=== PATIENT | male | born 1935 | race Two or more races ===

== ENCOUNTER 2022-10-17 10:02 | Inpatient (IN) | payer MEDICARE, BC, OTHER ==
[~2022-10-17] VITALS: Ht 167.6 cm; Wt 74.4 kg
[2022-10-17] MEDS ORDERED: GLUCOSE 4GM CHEW TABLET PO PRN (15:55)
[2022-10-17] MEDS ORDERED: GLUCAGON INJ 1MG VIAL SC PRN (15:55)
[2022-10-17] MEDS ORDERED: ACETAMINOPHEN TAB 650MG DOSE (2X325MG) PO PRN (15:55)
[2022-10-17] MEDS ORDERED: DEXTROSE 50% 50ML SYRINGE IV PRN (15:55)
[2022-10-17 17:25] VITALS: BP 174/89; TEMP 98.6; O2SAT 96
[2022-10-17] MEDS ORDERED: oxyCODONE 5MG TAB PO ONE (18:25)
[2022-10-17] MEDS ORDERED: ATOR40TA75 PO (18:27)
[2022-10-17] MEDS ORDERED: ASPI81TA26 PO (18:27)
[2022-10-17] MEDS ORDERED: ENOX40IN3 SC (18:27)
[2022-10-17] MEDS ORDERED: HYDR50TA70 PO (18:27)
[2022-10-17] MEDS ORDERED: LIDO5DIS41 TOP (18:27)
[2022-10-17] MEDS ORDERED: INSU100V6 SQ (18:27)
[2022-10-17] MEDS ORDERED: [UNRECOGNIZED DRUG - CODE] PO (18:27)
[2022-10-17] MEDS ORDERED: TRAM50TA2 PO (18:27)
[2022-10-17] MEDS ORDERED: INSU100V13 SQ (18:27)
[2022-10-17] MEDS ORDERED: LISI5TAB11 PO (18:27)
[2022-10-17] MEDS ORDERED: LANTINJ4 SC (18:27)
[2022-10-17] MEDS ORDERED: PANT40TA29 PO (18:27)
[2022-10-17] MEDS ORDERED: ONDA4SOL IV (18:27)
[2022-10-17] MEDS ORDERED: INSUHUMDS SC ×2 (18:32)
[2022-10-17] MEDS ORDERED: HOME MED LIST COMPLETE! XX SCH (18:35)
[2022-10-17] MEDS ORDERED: PILL CUTTER 1 EACH XX PRN (18:50)
[2022-10-17] MEDS: INSULIN LISPRO (NovoLOG) PER UNIT SC SCH ×2 (19:20→21:00)
[2022-10-17] MEDS: REMEDY PHYTOPLEX Z-GUARD PASTE 113GM TUBE (FROM STOREROOM PRODUCT) TOP SCH (21:00)
[2022-10-17 21:40] VITALS: BP 165/78; TEMP 98.3; O2SAT 97
[2022-10-17] MEDS: LEVEMIR (INSULIN DETEMIR) 1 UNITS/0.01ML SC SCH (21:49)
[2022-10-17] MEDS: LIDOCAINE 5% (LIDODERM) PATCH TD SCH (21:50)
[2022-10-17] MEDS: GABAPENTIN 100 MG CAP PO SCH (21:50)
[2022-10-17] MEDS: ACETAMINOPHEN 500 MG TAB PO SCH (21:50)
[2022-10-17] MEDS: SENNA 8.6 MG TAB (SENOKOT) PO SCH (21:50)
[2022-10-17] MEDS: ATORVASTATIN 20 MG TAB PO SCH (21:50)
[2022-10-17] MEDS: **hydrALAZINE** 10 MG TAB PO SCH (21:51)
[2022-10-17] MEDS: DOCUSATE SODIUM 100MG CAPSULE PO SCH (21:51)
[2022-10-18 05:35] VITALS: BP 165/78; O2SAT 94
[2022-10-18 05:43] VITALS: TEMP 98.1
[2022-10-18] MEDS: **hydrALAZINE** 10 MG TAB PO SCH ×3 (05:47→22:00)
[2022-10-18] MEDS ORDERED: amLODIPine 5 MG TAB PO SCH (07:00)
[2022-10-18 07:21] VITALS: BP 151/67
[2022-10-18] MEDS ORDERED: traMADol 50 MG TAB PO PRN (07:50)
[2022-10-18] MEDS: PANTOPRAZOLE 40MG TAB (PROTONIX) PO SCH (08:41)
[2022-10-18] MEDS: ACETAMINOPHEN 500 MG TAB PO SCH ×3 (08:41→21:06)
[2022-10-18] MEDS: GABAPENTIN 100 MG CAP PO SCH ×2 (08:41→21:07)
[2022-10-18] MEDS: ASPIRIN 81MG ENTERIC TABLET PO SCH (08:41)
[2022-10-18] MEDS: REMEDY PHYTOPLEX Z-GUARD PASTE 113GM TUBE (FROM STOREROOM PRODUCT) TOP SCH ×3 (08:41→21:00)
[2022-10-18] MEDS: DOCUSATE SODIUM 100MG CAPSULE PO SCH ×2 (08:41→21:07)
[2022-10-18] MEDS: INSULIN LISPRO (NovoLOG) PER UNIT SC SCH ×4 (08:41→21:00)
[2022-10-18] MEDS: lisinopriL 5 MG TAB PO SCH (08:43)
[2022-10-18] MEDS ORDERED: THIAMINE 100 MG TAB PO SCH (09:00)
[2022-10-18] MEDS ORDERED: ESCITALOPRAM OXALATE 5MG TABLET (LEXAPRO) PO SCH (09:00)
[2022-10-18 09:01] LABS: BASO # 0.1 10^3/uL (0.0-0.2); BASO % 1.3 % (0.0-1.0); EOS # 0.3 10^3/uL (0.0-0.5); EOS % 5.2 % (0.0-3.0); HEMATOCRIT 33.7 % (42.0-52.0); HEMOGLOBIN 11.1 g/dl (13.5-17.5); LYMPH # 1.2 10^3/uL (1.5-5.0); MEAN CORPUSCULAR HEMOGLOBIN 29.1 pg (27.0-33.0); MEAN CORPUSCULAR HGB CONC 32.9 g/dl (32.0-36.5); MEAN CORPUSCULAR VOLUME 88.2 fl (80.0-96.0); MONO # 0.5 10^3/uL (0.0-0.8); MONO % 9.8 % (2.0-8.0); NEUTROPHILS # 3.2 10^3/uL (1.5-8.5); NEUTROPHILS % 61.5 % (36.0-66.0); PLATELET COUNT, AUTOMATED 266 10^3/uL (150-450); RED BLOOD COUNT 3.82 10^6/uL (4.30-6.10); WHITE BLOOD COUNT 5.2 10^3/uL (4.0-10.0)
[2022-10-18 09:21] LABS: ALBUMIN 3.3 G/DL (3.2-5.2); ALKALINE PHOSPHATASE 58 U/L (46-116); ALT/SGPT 14 U/L (7.0-40); AST/SGOT 23 U/L (<34); BILIRUBIN,TOTAL 0.6 MG/DL (0.3-1.2); BLOOD UREA NITROGEN 24 MG/DL (9-23); CALCIUM LEVEL 9.5 MG/DL (8.3-10.6); CARBON DIOXIDE LEVEL 27 MMOL/L (20-31); CHLORIDE LEVEL 103 MMOL/L (98-107); CREATININE FOR GFR 0.66 MG/DL (0.70-1.30); GLOMERULAR FILTRATION RATE > 60.0 (>35); GLUCOSE, FASTING 111 MG/DL (74-106); POTASSIUM SERUM 3.7 MMOL/L (3.5-5.1); SODIUM LEVEL 137 MMOL/L (136-145); TOTAL PROTEIN 5.8 G/DL (5.7-8.2)
[2022-10-18] MEDS ORDERED: BENFOTIAMINE PO SCH (10:30)
[2022-10-18] MEDS: oxyCODONE 5MG TAB PO PRN (15:20)
[2022-10-18 20:46] VITALS: BP 131/61; TEMP 98.3; O2SAT 95
[2022-10-18] MEDS: LEVEMIR (INSULIN DETEMIR) 1 UNITS/0.01ML SC SCH (21:05)
[2022-10-18] MEDS: LIDOCAINE 5% (LIDODERM) PATCH TD SCH (21:05)
[2022-10-18] MEDS: ATORVASTATIN 20 MG TAB PO SCH (21:06)
[2022-10-18] MEDS: HEPARIN SOD (PORCINE) 5000UNITS/ML 1ML VIAL/SYRINGE SQ SCH (21:06)
[2022-10-18] MEDS: SENNA 8.6 MG TAB (SENOKOT) PO SCH (21:06)
[2022-10-18 22:39] VITALS: BP 125/60
[2022-10-19 05:12] VITALS: BP 152/72; TEMP 98.2; O2SAT 96
[2022-10-19] MEDS: **hydrALAZINE** 10 MG TAB PO SCH ×3 (05:17→21:07)
[2022-10-19 06:54] LABS: BASO % 0.8 % (0.0-1.0); EOS # 0.3 10^3/uL (0.0-0.5); EOS % 5.1 % (0.0-3.0); HEMATOCRIT 33.5 % (42.0-52.0); LYMPH # 1.3 10^3/uL (1.5-5.0); LYMPH % 24.6 % (24.0-44.0); MEAN CORPUSCULAR HEMOGLOBIN 29.3 pg (27.0-33.0); MEAN CORPUSCULAR HGB CONC 32.8 g/dl (32.0-36.5); MEAN CORPUSCULAR VOLUME 89.3 fl (80.0-96.0); MONO # 0.5 10^3/uL (0.0-0.8); NEUTROPHILS # 3.2 10^3/uL (1.5-8.5); NEUTROPHILS % 60.1 % (36.0-66.0); PLATELET COUNT, AUTOMATED 241 10^3/uL (150-450); RED BLOOD COUNT 3.75 10^6/uL (4.30-6.10); WHITE BLOOD COUNT 5.3 10^3/uL (4.0-10.0)
[2022-10-19 07:23] LABS: BLOOD UREA NITROGEN 20 MG/DL (9-23); CALCIUM LEVEL 8.4 MG/DL (8.3-10.6); CARBON DIOXIDE LEVEL 28 MMOL/L (20-31); CHLORIDE LEVEL 104 MMOL/L (98-107); CREATININE FOR GFR 0.67 MG/DL (0.70-1.30); GLOMERULAR FILTRATION RATE > 60.0 (>35); GLUCOSE, FASTING 162 MG/DL (74-106); POTASSIUM SERUM 3.8 MMOL/L (3.5-5.1); SODIUM LEVEL 138 MMOL/L (136-145)
[2022-10-19] MEDS: INSULIN LISPRO (NovoLOG) PER UNIT SC SCH ×4 (08:09→20:16)
[2022-10-19] MEDS: HEPARIN SOD (PORCINE) 5000UNITS/ML 1ML VIAL/SYRINGE SQ SCH ×2 (08:10→20:20)
[2022-10-19] MEDS: ACETAMINOPHEN 500 MG TAB PO SCH ×3 (08:10→20:19)
[2022-10-19] MEDS: DOCUSATE SODIUM 100MG CAPSULE PO SCH ×2 (08:10→20:20)
[2022-10-19] MEDS: ASPIRIN 81MG ENTERIC TABLET PO SCH (08:10)
[2022-10-19] MEDS: ESCITALOPRAM OXALATE 5MG TABLET (LEXAPRO) PO SCH (08:11)
[2022-10-19] MEDS: REMEDY PHYTOPLEX Z-GUARD PASTE 113GM TUBE (FROM STOREROOM PRODUCT) TOP SCH ×3 (08:11→20:21)
[2022-10-19] MEDS: PANTOPRAZOLE 40MG TAB (PROTONIX) PO SCH (08:11)
[2022-10-19] MEDS: lisinopriL 5 MG TAB PO SCH (08:11)
[2022-10-19 14:05] VITALS: BP 132/66; TEMP 97.9; O2SAT 96
[2022-10-19] MEDS: ALPHA LIPOIC ACID 100 MG PO SCH (14:55)
[2022-10-19] MEDS ORDERED: ONDANSETRON 4MG ORAL DISINTEGRATING TAB PO STA (17:56)
[2022-10-19 19:13] VITALS: TEMP 97; O2SAT 97
[2022-10-19 19:28] VITALS: BP 158/72
[2022-10-19] MEDS: LEVEMIR (INSULIN DETEMIR) 1 UNITS/0.01ML SC SCH (20:15)
[2022-10-19] MEDS: GABAPENTIN 100 MG CAP PO SCH (20:19)
[2022-10-19] MEDS: SENNA 8.6 MG TAB (SENOKOT) PO SCH (20:19)
[2022-10-19] MEDS: ATORVASTATIN 20 MG TAB PO SCH (20:20)
[2022-10-19] MEDS: LIDOCAINE 5% (LIDODERM) PATCH TD SCH (20:21)
[2022-10-19] MEDS: oxyCODONE 5MG TAB PO PRN (22:59)
[2022-10-20] MEDS ORDERED: oxyCODONE 5MG TAB PO ONE (02:00)
[2022-10-20 05:26] VITALS: BP 135/61; TEMP 97.2; O2SAT 96
[2022-10-20] MEDS: **hydrALAZINE** 10 MG TAB PO SCH ×3 (05:35→20:40)
[2022-10-20] MEDS: ALPHA LIPOIC ACID 100 MG PO SCH (08:24)
[2022-10-20] MEDS: INSULIN LISPRO (NovoLOG) PER UNIT SC SCH ×4 (08:25→20:38)
[2022-10-20] MEDS: ACETAMINOPHEN 500 MG TAB PO SCH ×3 (08:25→20:37)
[2022-10-20] MEDS: ASPIRIN 81MG ENTERIC TABLET PO SCH (08:26)
[2022-10-20] MEDS: DOCUSATE SODIUM 100MG CAPSULE PO SCH ×2 (08:26→20:36)
[2022-10-20] MEDS: HEPARIN SOD (PORCINE) 5000UNITS/ML 1ML VIAL/SYRINGE SQ SCH ×2 (08:26→20:38)
[2022-10-20] MEDS: PANTOPRAZOLE 40MG TAB (PROTONIX) PO SCH (08:27)
[2022-10-20] MEDS: ESCITALOPRAM OXALATE 5MG TABLET (LEXAPRO) PO SCH (08:27)
[2022-10-20] MEDS: lisinopriL 5 MG TAB PO SCH (08:27)
[2022-10-20] MEDS: REMEDY PHYTOPLEX Z-GUARD PASTE 113GM TUBE (FROM STOREROOM PRODUCT) TOP SCH ×3 (08:29→20:39)
[2022-10-20 13:01] VITALS: BP 136/64; TEMP 98.2; O2SAT 97
[2022-10-20 14:05] VITALS: BP 118/54; TEMP 98.6; O2SAT 97
[2022-10-20] MEDS: BISACODYL 5MG TAB PO SCH (14:19)
[2022-10-20 19:24] VITALS: BP 118/68; TEMP 97.9; O2SAT 94
[2022-10-20] MEDS: SENNA 8.6 MG TAB (SENOKOT) PO SCH (20:36)
[2022-10-20] MEDS: GABAPENTIN 100 MG CAP PO SCH (20:36)
[2022-10-20] MEDS: ATORVASTATIN 20 MG TAB PO SCH (20:37)
[2022-10-20] MEDS: LIDOCAINE 5% (LIDODERM) PATCH TD SCH (20:38)
[2022-10-20] MEDS: LEVEMIR (INSULIN DETEMIR) 1 UNITS/0.01ML SC SCH (20:38)
[2022-10-21 02:08] VITALS: BP 114/58; TEMP 98.1; O2SAT 94
[2022-10-21] MEDS ORDERED: ONDANSETRON 4MG TAB PO ONE (03:00)
[2022-10-21 05:17] VITALS: BP 90/46; TEMP 97.8; O2SAT 94
[2022-10-21] MEDS: **hydrALAZINE** 10 MG TAB PO SCH ×3 (05:18→22:00)
[2022-10-21] MEDS ORDERED: NS 500 ML IV ONE (05:20)
[2022-10-21 06:00] VITALS: BP 104/62
[2022-10-21] MEDS: INSULIN LISPRO (NovoLOG) PER UNIT SC SCH ×4 (07:30→21:09)
[2022-10-21] MEDS: ALPHA LIPOIC ACID 100 MG PO SCH (09:00)
[2022-10-21] MEDS: lisinopriL 5 MG TAB PO SCH (09:00)
[2022-10-21] MEDS: REMEDY PHYTOPLEX Z-GUARD PASTE 113GM TUBE (FROM STOREROOM PRODUCT) TOP SCH ×3 (09:00→21:11)
[2022-10-21] MEDS: ESCITALOPRAM OXALATE 5MG TABLET (LEXAPRO) PO SCH (10:25)
[2022-10-21] MEDS: PANTOPRAZOLE 40MG TAB (PROTONIX) PO SCH (10:25)
[2022-10-21] MEDS: ASPIRIN 81MG ENTERIC TABLET PO SCH (10:26)
[2022-10-21] MEDS: ACETAMINOPHEN 500 MG TAB PO SCH ×3 (10:26→21:10)
[2022-10-21] MEDS: HEPARIN SOD (PORCINE) 5000UNITS/ML 1ML VIAL/SYRINGE SQ SCH ×2 (10:26→21:08)
[2022-10-21] MEDS: DOCUSATE SODIUM 100MG CAPSULE PO SCH ×2 (10:27→21:10)
[2022-10-21] MEDS: BISACODYL 5MG TAB PO SCH (10:27)
[2022-10-21] MEDS: ONDANSETRON 4MG TAB PO PRN ×3 (11:25→23:52)
[2022-10-21 11:48] VITALS: BP 112/52; TEMP 99.3; O2SAT 95
[2022-10-21] MEDS: NS 1,000 ML IV SCH ×2 (12:35→22:28)
[2022-10-21 13:27] LABS: HEMOGLOBIN 10.8 g/dl (13.5-17.5); MEAN CORPUSCULAR HEMOGLOBIN 29.5 pg (27.0-33.0); MEAN CORPUSCULAR HGB CONC 32.7 g/dl (32.0-36.5); MEAN CORPUSCULAR VOLUME 90.2 fl (80.0-96.0); PLATELET COUNT, AUTOMATED 284 10^3/uL (150-450); RED BLOOD COUNT 3.66 10^6/uL (4.30-6.10); WHITE BLOOD COUNT 14.4 10^3/uL (4.0-10.0)
[2022-10-21 13:59] VITALS: BP 126/58; TEMP 98.8; O2SAT 93
[2022-10-21 14:00] LABS: ALBUMIN 3.3 G/DL (3.2-5.2); ALKALINE PHOSPHATASE 89 U/L (46-116); ALT/SGPT 21 U/L (7.0-40); AST/SGOT 37 U/L (<34); BILIRUBIN,TOTAL 0.6 MG/DL (0.3-1.2); BLOOD UREA NITROGEN 38 MG/DL (9-23); CALCIUM LEVEL 8.7 MG/DL (8.3-10.6); CARBON DIOXIDE LEVEL 18 MMOL/L (20-31); CHLORIDE LEVEL 98 MMOL/L (98-107); CREATININE FOR GFR 0.89 MG/DL (0.70-1.30); GLOMERULAR FILTRATION RATE > 60.0 (>35); GLUCOSE, FASTING 268 MG/DL (74-106); POTASSIUM SERUM 4.7 MMOL/L (3.5-5.1); SODIUM LEVEL 133 MMOL/L (136-145); TOTAL PROTEIN 5.4 G/DL (5.7-8.2)
[2022-10-21 17:55] LABS: CK-MB VALUE MASS < 1.0 NG/ML (<3.6)
[2022-10-21 17:56] LABS: CPK CREATINE PHOSPHOKINASE 71 U/L (46-171)
[2022-10-21 20:00] VITALS: BP 134/59; TEMP 98.4; O2SAT 93
[2022-10-21] MEDS ORDERED: LEVEMIR (INSULIN DETEMIR) 1 UNITS/0.01ML SC SCH (21:00)
[2022-10-21] MEDS: LIDOCAINE 5% (LIDODERM) PATCH TD SCH ×2 (21:00→21:08)
[2022-10-21] MEDS: LEVEMIR (INSULIN DETEMIR) 1 UNITS/0.01ML SC SCH (21:09)
[2022-10-21] MEDS: SENNA 8.6 MG TAB (SENOKOT) PO SCH (21:10)
[2022-10-21] MEDS: GABAPENTIN 100 MG CAP PO SCH (21:10)
[2022-10-21] MEDS: ATORVASTATIN 20 MG TAB PO SCH (21:10)
[2022-10-21 21:45] LABS: VENOUS HCO3 19.1 MMOL/L (23.0-27.0); VENOUS O2 SATURATION 98.6 % (60.0-80.0); VENOUS PARTIAL PRESSURE CO2 36.1 mmHg (38.0-50.0); VENOUS PARTIAL PRESSURE O2 146.8 mmHg (30.0-50.0); VENOUS PH 7.341 UNITS (7.330-7.430); VENOUS STANDARD HCO3 19.6 MMOL/L; VENOUS TOTAL CO2 20.2 MMOL/L (24.0-28.0)
[2022-10-21 22:06] LABS: HEMOGLOBIN 10.1 g/dl (13.5-17.5); MEAN CORPUSCULAR HEMOGLOBIN 29.2 pg (27.0-33.0); MEAN CORPUSCULAR HGB CONC 32.6 g/dl (32.0-36.5); MEAN CORPUSCULAR VOLUME 89.6 fl (80.0-96.0); PLATELET COUNT, AUTOMATED 278 10^3/uL (150-450); RED BLOOD COUNT 3.46 10^6/uL (4.30-6.10); WHITE BLOOD COUNT 9.7 10^3/uL (4.0-10.0)
[2022-10-21 22:14] LABS: ALBUMIN 3.1 G/DL (3.2-5.2); ALKALINE PHOSPHATASE 80 U/L (46-116); ALT/SGPT 24 U/L (7.0-40); AST/SGOT 44 U/L (<34); BILIRUBIN,TOTAL 0.5 MG/DL (0.3-1.2); BLOOD UREA NITROGEN 37 MG/DL (9-23); CALCIUM LEVEL 8.3 MG/DL (8.3-10.6); CARBON DIOXIDE LEVEL 20 MMOL/L (20-31); CHLORIDE LEVEL 102 MMOL/L (98-107); CREATININE FOR GFR 0.95 MG/DL (0.70-1.30); GLOMERULAR FILTRATION RATE > 60.0 (>35); GLUCOSE, FASTING 305 MG/DL (74-106); POTASSIUM SERUM 4.2 MMOL/L (3.5-5.1); SODIUM LEVEL 135 MMOL/L (136-145); TOTAL PROTEIN 5.3 G/DL (5.7-8.2)
[2022-10-21 22:18] LABS: INR 1.06
[2022-10-21 22:19] LABS: PARTIAL THROMBOPLASTIN TIME 36.4 SECONDS (24.8-34.2)
[2022-10-22] MEDS: **hydrALAZINE** 10 MG TAB PO SCH ×2 (05:38→14:00)
[2022-10-22 06:00] VITALS: BP 139/63; TEMP 98.5; O2SAT 95
[2022-10-22 07:16] LABS: HEMATOCRIT 31.7 % (42.0-52.0); HEMOGLOBIN 10.3 g/dl (13.5-17.5); MEAN CORPUSCULAR HEMOGLOBIN 29.4 pg (27.0-33.0); MEAN CORPUSCULAR HGB CONC 32.5 g/dl (32.0-36.5); MEAN CORPUSCULAR VOLUME 90.6 fl (80.0-96.0); PLATELET COUNT, AUTOMATED 278 10^3/uL (150-450); WHITE BLOOD COUNT 8.4 10^3/uL (4.0-10.0)
[2022-10-22] MEDS: NS 1,000 ML IV SCH ×3 (07:42→21:03)
[2022-10-22 07:44] LABS: ALBUMIN 3.2 G/DL (3.2-5.2); ALKALINE PHOSPHATASE 76 U/L (46-116); ALT/SGPT 30 U/L (7.0-40); AST/SGOT 50 U/L (<34); BILIRUBIN,TOTAL 0.6 MG/DL (0.3-1.2); BLOOD UREA NITROGEN 34 MG/DL (9-23); CARBON DIOXIDE LEVEL 25 MMOL/L (20-31); CHLORIDE LEVEL 103 MMOL/L (98-107); CREATININE FOR GFR 0.84 MG/DL (0.70-1.30); GLOMERULAR FILTRATION RATE > 60.0 (>35); GLUCOSE, FASTING 208 MG/DL (74-106); POTASSIUM SERUM 4.1 MMOL/L (3.5-5.1); SODIUM LEVEL 135 MMOL/L (136-145); TOTAL PROTEIN 5.6 G/DL (5.7-8.2)
[2022-10-22] MEDS: DOCUSATE SODIUM 100MG CAPSULE PO SCH ×2 (08:19→20:39)
[2022-10-22] MEDS: BISACODYL 5MG TAB PO SCH (08:19)
[2022-10-22] MEDS: PANTOPRAZOLE 40MG TAB (PROTONIX) PO SCH (08:19)
[2022-10-22] MEDS: ESCITALOPRAM OXALATE 5MG TABLET (LEXAPRO) PO SCH (08:20)
[2022-10-22] MEDS: ASPIRIN 81MG ENTERIC TABLET PO SCH (08:20)
[2022-10-22] MEDS: lisinopriL 5 MG TAB PO SCH (08:20)
[2022-10-22] MEDS: ACETAMINOPHEN 500 MG TAB PO SCH ×3 (08:20→21:04)
[2022-10-22] MEDS: HEPARIN SOD (PORCINE) 5000UNITS/ML 1ML VIAL/SYRINGE SQ SCH ×2 (08:21→21:04)
[2022-10-22] MEDS: INSULIN LISPRO (NovoLOG) PER UNIT SC SCH ×4 (08:21→20:39)
[2022-10-22] MEDS: REMEDY PHYTOPLEX Z-GUARD PASTE 113GM TUBE (FROM STOREROOM PRODUCT) TOP SCH ×3 (08:21→21:00)
[2022-10-22] MEDS: ALPHA LIPOIC ACID 100 MG PO SCH (08:22)
[2022-10-22] MEDS: LEVEMIR (INSULIN DETEMIR) 1 UNITS/0.01ML SC SCH ×2 (09:53→20:39)
[2022-10-22 14:00] VITALS: BP 108/54; TEMP 98.3; O2SAT 91
[2022-10-22] MEDS: THIAMINE 100 MG TAB PO SCH (14:28)
[2022-10-22 20:00] VITALS: BP 125/58; TEMP 97.6; O2SAT 95
[2022-10-22] MEDS: SENNA 8.6 MG TAB (SENOKOT) PO SCH (20:39)
[2022-10-22] MEDS: ATORVASTATIN 20 MG TAB PO SCH (21:04)
[2022-10-22] MEDS ORDERED: DICLOFENAC EPOLAMINE 1.3% PATCH TOP PRN (22:25)
[2022-10-22] MEDS ORDERED: carisoprodoL 350 MG TAB PO ONE (22:30)
[2022-10-23 06:00] VITALS: BP 156/78; TEMP 98.4; O2SAT 97
[2022-10-23 06:11] LABS: HEMATOCRIT 30.2 % (42.0-52.0); HEMOGLOBIN 9.8 g/dl (13.5-17.5); MEAN CORPUSCULAR HEMOGLOBIN 29.4 pg (27.0-33.0); MEAN CORPUSCULAR HGB CONC 32.5 g/dl (32.0-36.5); MEAN CORPUSCULAR VOLUME 90.7 fl (80.0-96.0); PLATELET COUNT, AUTOMATED 211 10^3/uL (150-450); RED BLOOD COUNT 3.33 10^6/uL (4.30-6.10)
[2022-10-23 06:49] LABS: ALBUMIN 2.9 G/DL (3.2-5.2); ALKALINE PHOSPHATASE 68 U/L (46-116); ALT/SGPT 38 U/L (7.0-40); AST/SGOT 64 U/L (<34); BILIRUBIN,TOTAL 0.4 MG/DL (0.3-1.2); BLOOD UREA NITROGEN 22 MG/DL (9-23); CALCIUM LEVEL 8.1 MG/DL (8.3-10.6); CARBON DIOXIDE LEVEL 23 MMOL/L (20-31); CHLORIDE LEVEL 105 MMOL/L (98-107); CREATININE FOR GFR 0.63 MG/DL (0.70-1.30); GLOMERULAR FILTRATION RATE > 60.0 (>35); GLUCOSE, FASTING 257 MG/DL (74-106); POTASSIUM SERUM 3.9 MMOL/L (3.5-5.1); SODIUM LEVEL 136 MMOL/L (136-145); TOTAL PROTEIN 5.1 G/DL (5.7-8.2)
[2022-10-23] MEDS: INSULIN LISPRO (NovoLOG) PER UNIT SC SCH ×4 (08:16→20:47)
[2022-10-23] MEDS: ASPIRIN 81MG ENTERIC TABLET PO SCH (08:18)
[2022-10-23] MEDS: THIAMINE 100 MG TAB PO SCH (08:18)
[2022-10-23] MEDS: HEPARIN SOD (PORCINE) 5000UNITS/ML 1ML VIAL/SYRINGE SQ SCH ×2 (08:18→20:50)
[2022-10-23] MEDS: DOCUSATE SODIUM 100MG CAPSULE PO SCH ×3 (08:18→20:47)
[2022-10-23] MEDS: LEVEMIR (INSULIN DETEMIR) 1 UNITS/0.01ML SC SCH ×2 (08:18→20:49)
[2022-10-23] MEDS: PANTOPRAZOLE 40MG TAB (PROTONIX) PO SCH (08:18)
[2022-10-23] MEDS: ALPHA LIPOIC ACID 100 MG PO SCH (08:19)
[2022-10-23] MEDS: REMEDY PHYTOPLEX Z-GUARD PASTE 113GM TUBE (FROM STOREROOM PRODUCT) TOP SCH ×3 (08:19→20:48)
[2022-10-23] MEDS: ACETAMINOPHEN 500 MG TAB PO SCH ×3 (08:19→20:49)
[2022-10-23] MEDS: BISACODYL 5MG TAB PO SCH (08:19)
[2022-10-23] MEDS: NS 1,000 ML IV SCH (08:19)
[2022-10-23] MEDS: lisinopriL 5 MG TAB PO SCH (08:22)
[2022-10-23 14:00] VITALS: BP 157/70; TEMP 97.9; O2SAT 95
[2022-10-23] MEDS ORDERED: RAMELTEON 8 MG TAB (ROZEREM) PO PRN (17:55)
[2022-10-23] MEDS: SIMETHICONE 80MG CHEW TAB PO SCH ×2 (18:24→20:48)
[2022-10-23 20:00] VITALS: BP 148/67; TEMP 97.5; O2SAT 96
[2022-10-23] MEDS: SENNA 8.6 MG TAB (SENOKOT) PO SCH (20:47)
[2022-10-23] MEDS: ATORVASTATIN 20 MG TAB PO SCH (20:48)
[2022-10-23] MEDS: LIDOCAINE 5% (LIDODERM) PATCH TD SCH (20:50)
[2022-10-24 06:00] VITALS: BP 150/72; TEMP 97.7; O2SAT 95
[2022-10-24 06:15] LABS: HEMATOCRIT 28.5 % (42.0-52.0); HEMOGLOBIN 9.5 g/dl (13.5-17.5); MEAN CORPUSCULAR HEMOGLOBIN 29.9 pg (27.0-33.0); MEAN CORPUSCULAR HGB CONC 33.3 g/dl (32.0-36.5); MEAN CORPUSCULAR VOLUME 89.6 fl (80.0-96.0); PLATELET COUNT, AUTOMATED 233 10^3/uL (150-450); RED BLOOD COUNT 3.18 10^6/uL (4.30-6.10); WHITE BLOOD COUNT 5.2 10^3/uL (4.0-10.0)
[2022-10-24 06:43] LABS: ALBUMIN 2.9 G/DL (3.2-5.2); ALKALINE PHOSPHATASE 61 U/L (46-116); ALT/SGPT 32 U/L (7.0-40); AST/SGOT 53 U/L (<34); BILIRUBIN,TOTAL 0.4 MG/DL (0.3-1.2); BLOOD UREA NITROGEN 12 MG/DL (9-23); CALCIUM LEVEL 8.1 MG/DL (8.3-10.6); CARBON DIOXIDE LEVEL 26 MMOL/L (20-31); CHLORIDE LEVEL 105 MMOL/L (98-107); CREATININE FOR GFR 0.63 MG/DL (0.70-1.30); GLOMERULAR FILTRATION RATE > 60.0 (>35); GLUCOSE, FASTING 82 MG/DL (74-106); POTASSIUM SERUM 3.5 MMOL/L (3.5-5.1); SODIUM LEVEL 139 MMOL/L (136-145); TOTAL PROTEIN 5.1 G/DL (5.7-8.2)
[2022-10-24] MEDS: INSULIN LISPRO (NovoLOG) PER UNIT SC SCH ×4 (07:03→20:04)
[2022-10-24] MEDS: LEVEMIR (INSULIN DETEMIR) 1 UNITS/0.01ML SC SCH ×2 (07:04→20:14)
[2022-10-24] MEDS: BISACODYL 5MG TAB PO SCH (08:13)
[2022-10-24] MEDS: DOCUSATE SODIUM 100MG CAPSULE PO SCH ×2 (08:13→20:00)
[2022-10-24] MEDS: REMEDY PHYTOPLEX Z-GUARD PASTE 113GM TUBE (FROM STOREROOM PRODUCT) TOP SCH ×3 (08:13→20:01)
[2022-10-24] MEDS: THIAMINE 100 MG TAB PO SCH (08:25)
[2022-10-24] MEDS: lisinopriL 5 MG TAB PO SCH (08:25)
[2022-10-24] MEDS: HEPARIN SOD (PORCINE) 5000UNITS/ML 1ML VIAL/SYRINGE SQ SCH ×2 (08:25→20:00)
[2022-10-24] MEDS: ALPHA LIPOIC ACID 100 MG PO SCH (08:26)
[2022-10-24] MEDS: ACETAMINOPHEN 500 MG TAB PO SCH ×3 (08:26→20:00)
[2022-10-24] MEDS: ASPIRIN 81MG ENTERIC TABLET PO SCH (08:26)
[2022-10-24] MEDS: PANTOPRAZOLE 40MG TAB (PROTONIX) PO SCH (08:26)
[2022-10-24] MEDS: SIMETHICONE 80MG CHEW TAB PO SCH ×3 (08:26→20:00)
[2022-10-24] MEDS: ONDANSETRON 4MG TAB PO PRN (11:51)
[2022-10-24 14:00] VITALS: BP 152/80; TEMP 98.4; O2SAT 96
[2022-10-24] MEDS: amLODIPine 5 MG TAB PO SCH (14:32)
[2022-10-24] MEDS: ATORVASTATIN 20 MG TAB PO SCH (20:00)
[2022-10-24] MEDS: SENNA 8.6 MG TAB (SENOKOT) PO SCH (20:00)
[2022-10-24] MEDS: LIDOCAINE 5% (LIDODERM) PATCH TD SCH (20:01)
[2022-10-24 20:41] VITALS: BP 138/62; TEMP 98.3; O2SAT 94
[2022-10-25 06:00] VITALS: BP 149/67; TEMP 97.7; O2SAT 95
[2022-10-25 06:07] LABS: HEMATOCRIT 27.7 % (42.0-52.0); HEMOGLOBIN 9.3 g/dl (13.5-17.5); MEAN CORPUSCULAR HEMOGLOBIN 30.4 pg (27.0-33.0); MEAN CORPUSCULAR HGB CONC 33.6 g/dl (32.0-36.5); MEAN CORPUSCULAR VOLUME 90.5 fl (80.0-96.0); PLATELET COUNT, AUTOMATED 231 10^3/uL (150-450); RED BLOOD COUNT 3.06 10^6/uL (4.30-6.10)
[2022-10-25 07:01] LABS: ALBUMIN 2.7 G/DL (3.2-5.2); ALKALINE PHOSPHATASE 56 U/L (46-116); ALT/SGPT 30 U/L (7.0-40); AST/SGOT 41 U/L (<34); BILIRUBIN,TOTAL 0.4 MG/DL (0.3-1.2); BLOOD UREA NITROGEN 13 MG/DL (9-23); CARBON DIOXIDE LEVEL 26 MMOL/L (20-31); CHLORIDE LEVEL 103 MMOL/L (98-107); CREATININE FOR GFR 0.76 MG/DL (0.70-1.30); GLOMERULAR FILTRATION RATE > 60.0 (>35); GLUCOSE, FASTING 114 MG/DL (74-106); POTASSIUM SERUM 3.5 MMOL/L (3.5-5.1); SODIUM LEVEL 137 MMOL/L (136-145); TOTAL PROTEIN 4.8 G/DL (5.7-8.2)
[2022-10-25] MEDS: BISACODYL 5MG TAB PO SCH (07:07)
[2022-10-25] MEDS: SIMETHICONE 80MG CHEW TAB PO SCH ×3 (07:14→19:49)
[2022-10-25] MEDS: amLODIPine 5 MG TAB PO SCH ×2 (07:14→19:49)
[2022-10-25] MEDS: ACETAMINOPHEN 500 MG TAB PO SCH ×3 (07:14→19:50)
[2022-10-25] MEDS: PANTOPRAZOLE 40MG TAB (PROTONIX) PO SCH (07:15)
[2022-10-25] MEDS: lisinopriL 5 MG TAB PO SCH (07:15)
[2022-10-25] MEDS: INSULIN LISPRO (NovoLOG) PER UNIT SC SCH ×4 (07:15→19:51)
[2022-10-25] MEDS: ASPIRIN 81MG ENTERIC TABLET PO SCH (07:15)
[2022-10-25] MEDS: LEVEMIR (INSULIN DETEMIR) 1 UNITS/0.01ML SC SCH ×2 (07:15→19:51)
[2022-10-25] MEDS: DOCUSATE SODIUM 100MG CAPSULE PO SCH ×2 (07:15→19:49)
[2022-10-25] MEDS: ALPHA LIPOIC ACID 100 MG PO SCH (07:16)
[2022-10-25] MEDS: BENFOTIAMINE PO SCH (07:16)
[2022-10-25] MEDS: HEPARIN SOD (PORCINE) 5000UNITS/ML 1ML VIAL/SYRINGE SQ SCH ×2 (07:16→19:50)
[2022-10-25] MEDS: REMEDY PHYTOPLEX Z-GUARD PASTE 113GM TUBE (FROM STOREROOM PRODUCT) TOP SCH ×3 (08:08→19:53)
[2022-10-25 14:00] VITALS: BP 146/65; TEMP 98.2; O2SAT 93
[2022-10-25] MEDS: ATORVASTATIN 20 MG TAB PO SCH (19:49)
[2022-10-25] MEDS: SENNA 8.6 MG TAB (SENOKOT) PO SCH (19:49)
[2022-10-25] MEDS: LIDOCAINE 5% (LIDODERM) PATCH TD SCH (19:50)
[2022-10-25 20:00] VITALS: BP 144/65; TEMP 98.2; O2SAT 97
[2022-10-26 05:55] LABS: HEMATOCRIT 27.5 % (42.0-52.0); HEMOGLOBIN 8.9 g/dl (13.5-17.5); MEAN CORPUSCULAR HEMOGLOBIN 29.2 pg (27.0-33.0); MEAN CORPUSCULAR HGB CONC 32.4 g/dl (32.0-36.5); MEAN CORPUSCULAR VOLUME 90.2 fl (80.0-96.0); PLATELET COUNT, AUTOMATED 242 10^3/uL (150-450); RED BLOOD COUNT 3.05 10^6/uL (4.30-6.10); WHITE BLOOD COUNT 5.2 10^3/uL (4.0-10.0)
[2022-10-26 06:00] VITALS: BP 135/64; TEMP 98.6; O2SAT 94
[2022-10-26 06:44] LABS: ALBUMIN 2.7 G/DL (3.2-5.2); ALKALINE PHOSPHATASE 53 U/L (46-116); ALT/SGPT 33 U/L (7.0-40); AST/SGOT 51 U/L (<34); BILIRUBIN,TOTAL 0.3 MG/DL (0.3-1.2); BLOOD UREA NITROGEN 15 MG/DL (9-23); CALCIUM LEVEL 8.1 MG/DL (8.3-10.6); CARBON DIOXIDE LEVEL 29 MMOL/L (20-31); CHLORIDE LEVEL 103 MMOL/L (98-107); CREATININE FOR GFR 0.71 MG/DL (0.70-1.30); GLOMERULAR FILTRATION RATE > 60.0 (>35); GLUCOSE, FASTING 109 MG/DL (74-106); POTASSIUM SERUM 3.5 MMOL/L (3.5-5.1); SODIUM LEVEL 140 MMOL/L (136-145); TOTAL PROTEIN 4.7 G/DL (5.7-8.2)
[2022-10-26] MEDS: HEPARIN SOD (PORCINE) 5000UNITS/ML 1ML VIAL/SYRINGE SQ SCH ×2 (08:34→21:14)
[2022-10-26] MEDS: DOCUSATE SODIUM 100MG CAPSULE PO SCH ×2 (08:35→21:16)
[2022-10-26] MEDS: PANTOPRAZOLE 40MG TAB (PROTONIX) PO SCH (08:35)
[2022-10-26] MEDS: SIMETHICONE 80MG CHEW TAB PO SCH ×3 (08:35→21:14)
[2022-10-26] MEDS: ACETAMINOPHEN 500 MG TAB PO SCH ×3 (08:35→21:16)
[2022-10-26] MEDS: ALPHA LIPOIC ACID 100 MG PO SCH (08:36)
[2022-10-26] MEDS: BENFOTIAMINE PO SCH (08:36)
[2022-10-26] MEDS: amLODIPine 5 MG TAB PO SCH ×2 (08:36→21:16)
[2022-10-26] MEDS: lisinopriL 5 MG TAB PO SCH (08:36)
[2022-10-26] MEDS: ASPIRIN 81MG ENTERIC TABLET PO SCH (08:36)
[2022-10-26] MEDS: REMEDY PHYTOPLEX Z-GUARD PASTE 113GM TUBE (FROM STOREROOM PRODUCT) TOP SCH ×3 (08:37→21:00)
[2022-10-26] MEDS: LEVEMIR (INSULIN DETEMIR) 1 UNITS/0.01ML SC SCH ×2 (08:37→21:13)
[2022-10-26] MEDS: INSULIN LISPRO (NovoLOG) PER UNIT SC SCH ×4 (08:37→21:14)
[2022-10-26] MEDS: BISACODYL 5MG TAB PO SCH (09:00)
[2022-10-26 14:00] VITALS: BP 120/57; TEMP 97.7; O2SAT 95
[2022-10-26 15:45] LABS: MAGNESIUM LEVEL 1.6 MG/DL (1.8-2.4)
[2022-10-26 20:00] VITALS: BP 124/58; TEMP 98; O2SAT 95
[2022-10-26] MEDS: ATORVASTATIN 20 MG TAB PO SCH (21:14)
[2022-10-26] MEDS: SENNA 8.6 MG TAB (SENOKOT) PO SCH (21:16)
[2022-10-26] MEDS: LIDOCAINE 5% (LIDODERM) PATCH TD SCH (21:17)
[2022-10-26] MEDS: MAGNESIUM OXIDE 400MG TAB (MAG-OX) PO SCH (21:17)
[2022-10-27] MEDS: oxyCODONE 5MG TAB PO PRN ×2 (04:21→22:45)
[2022-10-27 06:00] VITALS: BP 136/63; TEMP 97.5; O2SAT 94
[2022-10-27] MEDS: INSULIN LISPRO (NovoLOG) PER UNIT SC SCH ×4 (08:14→20:13)
[2022-10-27] MEDS: ACETAMINOPHEN 500 MG TAB PO SCH ×3 (08:15→20:12)
[2022-10-27] MEDS: HEPARIN SOD (PORCINE) 5000UNITS/ML 1ML VIAL/SYRINGE SQ SCH ×2 (08:15→20:13)
[2022-10-27] MEDS: LEVEMIR (INSULIN DETEMIR) 1 UNITS/0.01ML SC SCH ×2 (08:15→20:13)
[2022-10-27] MEDS: DOCUSATE SODIUM 100MG CAPSULE PO SCH ×2 (08:15→20:11)
[2022-10-27] MEDS: SIMETHICONE 80MG CHEW TAB PO SCH ×3 (08:16→20:12)
[2022-10-27] MEDS: PANTOPRAZOLE 40MG TAB (PROTONIX) PO SCH (08:16)
[2022-10-27] MEDS: BISACODYL 5MG TAB PO SCH (08:16)
[2022-10-27] MEDS: ASPIRIN 81MG ENTERIC TABLET PO SCH (08:16)
[2022-10-27] MEDS: lisinopriL 5 MG TAB PO SCH (08:17)
[2022-10-27] MEDS: amLODIPine 5 MG TAB PO SCH ×2 (08:17→20:12)
[2022-10-27] MEDS: BENFOTIAMINE PO SCH (08:17)
[2022-10-27] MEDS: REMEDY PHYTOPLEX Z-GUARD PASTE 113GM TUBE (FROM STOREROOM PRODUCT) TOP SCH ×3 (08:18→20:14)
[2022-10-27] MEDS: ALPHA LIPOIC ACID 100 MG PO SCH (08:18)
[2022-10-27 12:00] VITALS: BP 127/60; TEMP 98.3; O2SAT 95
[2022-10-27 14:00] VITALS: BP 127/60; TEMP 98.3; O2SAT 95
[2022-10-27 20:00] VITALS: BP 143/66; TEMP 98.1; O2SAT 94
[2022-10-27] MEDS: SENNA 8.6 MG TAB (SENOKOT) PO SCH (20:11)
[2022-10-27] MEDS: MAGNESIUM OXIDE 400MG TAB (MAG-OX) PO SCH (20:11)
[2022-10-27] MEDS: ATORVASTATIN 20 MG TAB PO SCH (20:12)
[2022-10-27] MEDS: LIDOCAINE 5% (LIDODERM) PATCH TD SCH (20:13)
[2022-10-28 06:01] VITALS: BP 132/80; TEMP 98; O2SAT 94
[2022-10-28] MEDS: LEVEMIR (INSULIN DETEMIR) 1 UNITS/0.01ML SC SCH ×2 (08:24→21:19)
[2022-10-28] MEDS: INSULIN LISPRO (NovoLOG) PER UNIT SC SCH ×4 (08:24→21:00)
[2022-10-28] MEDS: BENFOTIAMINE PO SCH (08:25)
[2022-10-28] MEDS: ASPIRIN 81MG ENTERIC TABLET PO SCH (08:25)
[2022-10-28] MEDS: ALPHA LIPOIC ACID 100 MG PO SCH (08:25)
[2022-10-28] MEDS: HEPARIN SOD (PORCINE) 5000UNITS/ML 1ML VIAL/SYRINGE SQ SCH ×2 (08:25→21:20)
[2022-10-28] MEDS: DOCUSATE SODIUM 100MG CAPSULE PO SCH ×2 (08:25→21:20)
[2022-10-28] MEDS: BISACODYL 5MG TAB PO SCH (08:26)
[2022-10-28] MEDS: SIMETHICONE 80MG CHEW TAB PO SCH ×3 (08:26→21:19)
[2022-10-28] MEDS: lisinopriL 5 MG TAB PO SCH (08:26)
[2022-10-28] MEDS: ACETAMINOPHEN 500 MG TAB PO SCH ×3 (08:26→21:21)
[2022-10-28] MEDS: PANTOPRAZOLE 40MG TAB (PROTONIX) PO SCH (08:26)
[2022-10-28] MEDS: amLODIPine 5 MG TAB PO SCH ×2 (08:27→21:21)
[2022-10-28] MEDS: REMEDY PHYTOPLEX Z-GUARD PASTE 113GM TUBE (FROM STOREROOM PRODUCT) TOP SCH ×3 (08:27→21:00)
[2022-10-28 14:00] VITALS: BP 128/78; TEMP 98; O2SAT 96
[2022-10-28 20:00] VITALS: BP 131/59; TEMP 98.3; O2SAT 96
[2022-10-28] MEDS: MAGNESIUM OXIDE 400MG TAB (MAG-OX) PO SCH (21:20)
[2022-10-28] MEDS: SENNA 8.6 MG TAB (SENOKOT) PO SCH (21:20)
[2022-10-28] MEDS: ATORVASTATIN 20 MG TAB PO SCH (21:20)
[2022-10-28] MEDS: LIDOCAINE 5% (LIDODERM) PATCH TD SCH (21:22)
[2022-10-29 06:00] VITALS: BP 150/69; TEMP 98.2; O2SAT 98
[2022-10-29] MEDS: HEPARIN SOD (PORCINE) 5000UNITS/ML 1ML VIAL/SYRINGE SQ SCH ×2 (08:23→20:13)
[2022-10-29] MEDS: SIMETHICONE 80MG CHEW TAB PO SCH ×3 (08:24→20:12)
[2022-10-29] MEDS: INSULIN LISPRO (NovoLOG) PER UNIT SC SCH ×4 (08:24→20:00)
[2022-10-29] MEDS: LEVEMIR (INSULIN DETEMIR) 1 UNITS/0.01ML SC SCH ×2 (08:24→20:13)
[2022-10-29] MEDS: lisinopriL 5 MG TAB PO SCH (08:25)
[2022-10-29] MEDS: ASPIRIN 81MG ENTERIC TABLET PO SCH (08:25)
[2022-10-29] MEDS: amLODIPine 5 MG TAB PO SCH ×2 (08:26→20:12)
[2022-10-29] MEDS: ACETAMINOPHEN 500 MG TAB PO SCH ×3 (08:26→20:11)
[2022-10-29] MEDS: REMEDY PHYTOPLEX Z-GUARD PASTE 113GM TUBE (FROM STOREROOM PRODUCT) TOP SCH ×3 (08:26→20:13)
[2022-10-29] MEDS: ALPHA LIPOIC ACID 100 MG PO SCH (08:26)
[2022-10-29] MEDS: PANTOPRAZOLE 40MG TAB (PROTONIX) PO SCH (08:26)
[2022-10-29] MEDS: BENFOTIAMINE PO SCH (08:26)
[2022-10-29] MEDS: BISACODYL 5MG TAB PO SCH (08:58)
[2022-10-29] MEDS: DOCUSATE SODIUM 100MG CAPSULE PO SCH ×2 (08:58→20:12)
[2022-10-29 09:40] LABS: BASO # 0.1 10^3/uL (0.0-0.2); EOS # 0.4 10^3/uL (0.0-0.5); EOS % 7.3 % (0.0-3.0); HEMATOCRIT 33.3 % (42.0-52.0); HEMOGLOBIN 10.8 g/dl (13.5-17.5); LYMPH # 0.7 10^3/uL (1.5-5.0); LYMPH % 13.8 % (24.0-44.0); MEAN CORPUSCULAR HEMOGLOBIN 29.8 pg (27.0-33.0); MEAN CORPUSCULAR HGB CONC 32.4 g/dl (32.0-36.5); MEAN CORPUSCULAR VOLUME 91.7 fl (80.0-96.0); MONO # 0.3 10^3/uL (0.0-0.8); MONO % 6.9 % (2.0-8.0); NEUTROPHILS # 3.5 10^3/uL (1.5-8.5); NEUTROPHILS % 70.8 % (36.0-66.0); PLATELET COUNT, AUTOMATED 311 10^3/uL (150-450); RED BLOOD COUNT 3.63 10^6/uL (4.30-6.10); WHITE BLOOD COUNT 4.9 10^3/uL (4.0-10.0)
[2022-10-29 10:29] LABS: BLOOD UREA NITROGEN 19 MG/DL (9-23); CALCIUM LEVEL 8.6 MG/DL (8.3-10.6); CARBON DIOXIDE LEVEL 30 MMOL/L (20-31); CHLORIDE LEVEL 102 MMOL/L (98-107); CREATININE FOR GFR 0.55 MG/DL (0.70-1.30); GLOMERULAR FILTRATION RATE > 60.0 (>35); GLUCOSE, FASTING 318 MG/DL (74-106); POTASSIUM SERUM 3.7 MMOL/L (3.5-5.1); SODIUM LEVEL 136 MMOL/L (136-145)
[2022-10-29 14:00] VITALS: BP 148/64; TEMP 97.6; O2SAT 98
[2022-10-29] MEDS: glipiZIDE *2.5MG* 1/2 TABLET PO SCH (17:13)
[2022-10-29 20:00] VITALS: BP 146/67; TEMP 97.8; O2SAT 96
[2022-10-29] MEDS: LIDOCAINE 5% (LIDODERM) PATCH TD SCH (20:12)
[2022-10-29] MEDS: SENNA 8.6 MG TAB (SENOKOT) PO SCH (20:12)
[2022-10-29] MEDS: ATORVASTATIN 20 MG TAB PO SCH (20:12)
[2022-10-29] MEDS: MAGNESIUM OXIDE 400MG TAB (MAG-OX) PO SCH (20:12)
[2022-10-29] MEDS ORDERED: GABAPENTIN 100 MG CAP PO SCH (21:00)
[2022-10-30 06:00] VITALS: BP 95/51; TEMP 97.9; O2SAT 96
[2022-10-30] MEDS: INSULIN LISPRO (NovoLOG) PER UNIT SC SCH ×4 (07:27→20:19)
[2022-10-30] MEDS: glipiZIDE *2.5MG* 1/2 TABLET PO SCH ×2 (07:28→17:26)
[2022-10-30] MEDS: SIMETHICONE 80MG CHEW TAB PO SCH ×3 (09:27→20:17)
[2022-10-30] MEDS: ASPIRIN 81MG ENTERIC TABLET PO SCH (09:27)
[2022-10-30] MEDS: BISACODYL 5MG TAB PO SCH (09:27)
[2022-10-30] MEDS: DOCUSATE SODIUM 100MG CAPSULE PO SCH ×2 (09:28→20:17)
[2022-10-30] MEDS: ACETAMINOPHEN 500 MG TAB PO SCH ×3 (09:28→20:18)
[2022-10-30] MEDS: amLODIPine 5 MG TAB PO SCH ×2 (09:28→20:17)
[2022-10-30] MEDS: PANTOPRAZOLE 40MG TAB (PROTONIX) PO SCH (09:28)
[2022-10-30] MEDS: LEVEMIR (INSULIN DETEMIR) 1 UNITS/0.01ML SC SCH ×2 (09:29→20:18)
[2022-10-30] MEDS: HEPARIN SOD (PORCINE) 5000UNITS/ML 1ML VIAL/SYRINGE SQ SCH ×2 (09:29→20:19)
[2022-10-30] MEDS: lisinopriL 5 MG TAB PO SCH (09:29)
[2022-10-30] MEDS: REMEDY PHYTOPLEX Z-GUARD PASTE 113GM TUBE (FROM STOREROOM PRODUCT) TOP SCH ×3 (09:30→21:55)
[2022-10-30] MEDS: BENFOTIAMINE PO SCH (09:30)
[2022-10-30] MEDS: ALPHA LIPOIC ACID 600 MG PO SCH (09:30)
[2022-10-30 14:00] VITALS: BP 129/60; TEMP 98.2; O2SAT 98
[2022-10-30 20:00] VITALS: BP 123/58; TEMP 97.7; O2SAT 97
[2022-10-30] MEDS: SENNA 8.6 MG TAB (SENOKOT) PO SCH (20:16)
[2022-10-30] MEDS: ATORVASTATIN 20 MG TAB PO SCH (20:17)
[2022-10-30] MEDS: MAGNESIUM OXIDE 400MG TAB (MAG-OX) PO SCH (20:17)
[2022-10-30] MEDS: LIDOCAINE 5% (LIDODERM) PATCH TD SCH (20:19)
[2022-10-31 06:00] VITALS: BP 114/55; TEMP 97.5; O2SAT 94
[2022-10-31 06:19] LABS: BASO # 0.1 10^3/uL (0.0-0.2); BASO % 1.2 % (0.0-1.0); EOS # 0.4 10^3/uL (0.0-0.5); EOS % 8.8 % (0.0-3.0); HEMATOCRIT 29.4 % (42.0-52.0); HEMOGLOBIN 9.7 g/dl (13.5-17.5); LYMPH # 0.9 10^3/uL (1.5-5.0); LYMPH % 17.5 % (24.0-44.0); MEAN CORPUSCULAR HEMOGLOBIN 29.8 pg (27.0-33.0); MEAN CORPUSCULAR VOLUME 90.5 fl (80.0-96.0); MONO # 0.5 10^3/uL (0.0-0.8); MONO % 10.8 % (2.0-8.0); NEUTROPHILS # 3.1 10^3/uL (1.5-8.5); NEUTROPHILS % 61.5 % (36.0-66.0); PLATELET COUNT, AUTOMATED 301 10^3/uL (150-450); RED BLOOD COUNT 3.25 10^6/uL (4.30-6.10)
[2022-10-31 06:50] LABS: BLOOD UREA NITROGEN 28 MG/DL (9-23); CALCIUM LEVEL 8.4 MG/DL (8.3-10.6); CARBON DIOXIDE LEVEL 29 MMOL/L (20-31); CHLORIDE LEVEL 107 MMOL/L (98-107); CREATININE FOR GFR 0.62 MG/DL (0.70-1.30); GLOMERULAR FILTRATION RATE > 60.0 (>35); GLUCOSE, FASTING 201 MG/DL (74-106); POTASSIUM SERUM 4.1 MMOL/L (3.5-5.1); SODIUM LEVEL 140 MMOL/L (136-145)
[2022-10-31] MEDS: ASPIRIN 81MG ENTERIC TABLET PO SCH (08:57)
[2022-10-31] MEDS: DULoxetine 20MG CAP (CYMBALTA) PO SCH (08:57)
[2022-10-31] MEDS: SIMETHICONE 80MG CHEW TAB PO SCH ×3 (08:57→20:57)
[2022-10-31] MEDS: glipiZIDE *2.5MG* 1/2 TABLET PO SCH (08:57)
[2022-10-31] MEDS: PANTOPRAZOLE 40MG TAB (PROTONIX) PO SCH (08:57)
[2022-10-31] MEDS: BISACODYL 5MG TAB PO SCH ×2 (08:57→09:00)
[2022-10-31] MEDS: lisinopriL 5 MG TAB PO SCH (08:58)
[2022-10-31] MEDS: amLODIPine 5 MG TAB PO SCH ×2 (08:58→20:58)
[2022-10-31] MEDS: BENFOTIAMINE PO SCH (08:59)
[2022-10-31] MEDS: ALPHA LIPOIC ACID 600 MG PO SCH (08:59)
[2022-10-31] MEDS: DOCUSATE SODIUM 100MG CAPSULE PO SCH ×2 (08:59→21:00)
[2022-10-31] MEDS: INSULIN LISPRO (NovoLOG) PER UNIT SC SCH ×4 (09:00→20:59)
[2022-10-31] MEDS: LEVEMIR (INSULIN DETEMIR) 1 UNITS/0.01ML SC SCH ×2 (09:01→20:55)
[2022-10-31] MEDS: ACETAMINOPHEN 500 MG TAB PO SCH ×3 (09:02→20:57)
[2022-10-31] MEDS: REMEDY PHYTOPLEX Z-GUARD PASTE 113GM TUBE (FROM STOREROOM PRODUCT) TOP SCH ×3 (09:03→21:00)
[2022-10-31] MEDS: HEPARIN SOD (PORCINE) 5000UNITS/ML 1ML VIAL/SYRINGE SQ SCH ×2 (09:03→20:56)
[2022-10-31 14:00] VITALS: BP 125/60; TEMP 98.2; O2SAT 97
[2022-10-31] MEDS: glipiZIDE (GLUCOTROL) 5 MG TAB PO SCH (17:26)
[2022-10-31 20:00] VITALS: BP 123/58; TEMP 98.1; O2SAT 97
[2022-10-31] MEDS: ATORVASTATIN 20 MG TAB PO SCH (20:57)
[2022-10-31] MEDS: MAGNESIUM OXIDE 400MG TAB (MAG-OX) PO SCH (20:58)
[2022-10-31] MEDS: SENNA 8.6 MG TAB (SENOKOT) PO SCH (20:59)
[2022-10-31] MEDS: LIDOCAINE 5% (LIDODERM) PATCH TD SCH (21:00)
[2022-11-01 06:46] VITALS: BP 134/63; TEMP 98.1; O2SAT 97
[2022-11-01] MEDS: INSULIN LISPRO (NovoLOG) PER UNIT SC SCH ×4 (07:24→20:49)
[2022-11-01] MEDS: glipiZIDE (GLUCOTROL) 5 MG TAB PO SCH ×2 (07:30→17:43)
[2022-11-01] MEDS: BISACODYL 5MG TAB PO SCH (09:00)
[2022-11-01] MEDS: LEVEMIR (INSULIN DETEMIR) 1 UNITS/0.01ML SC SCH ×2 (09:00→21:02)
[2022-11-01] MEDS: DOCUSATE SODIUM 100MG CAPSULE PO SCH ×2 (09:00→21:02)
[2022-11-01] MEDS: REMEDY PHYTOPLEX Z-GUARD PASTE 113GM TUBE (FROM STOREROOM PRODUCT) TOP SCH ×3 (09:00→21:00)
[2022-11-01] MEDS: ASPIRIN 81MG ENTERIC TABLET PO SCH (09:18)
[2022-11-01] MEDS: ACETAMINOPHEN 500 MG TAB PO SCH ×3 (09:18→21:03)
[2022-11-01] MEDS: PANTOPRAZOLE 40MG TAB (PROTONIX) PO SCH (09:18)
[2022-11-01] MEDS: DULoxetine 20MG CAP (CYMBALTA) PO SCH (09:18)
[2022-11-01] MEDS: HEPARIN SOD (PORCINE) 5000UNITS/ML 1ML VIAL/SYRINGE SQ SCH ×2 (09:18→21:00)
[2022-11-01] MEDS: SIMETHICONE 80MG CHEW TAB PO SCH ×3 (09:18→21:02)
[2022-11-01] MEDS: BENFOTIAMINE PO SCH (09:19)
[2022-11-01] MEDS: lisinopriL 5 MG TAB PO SCH (09:20)
[2022-11-01] MEDS: amLODIPine 5 MG TAB PO SCH ×2 (09:20→21:02)
[2022-11-01] MEDS: ALPHA LIPOIC ACID 600 MG PO SCH (09:20)
[2022-11-01 14:00] VITALS: BP 134/63; TEMP 98.2; O2SAT 95
[2022-11-01 20:00] VITALS: BP 119/57; TEMP 97.7; O2SAT 100
[2022-11-01] MEDS: SENNA 8.6 MG TAB (SENOKOT) PO SCH (21:00)
[2022-11-01] MEDS: LIDOCAINE 5% (LIDODERM) PATCH TD SCH (21:01)
[2022-11-01] MEDS: MAGNESIUM OXIDE 400MG TAB (MAG-OX) PO SCH (21:02)
[2022-11-01] MEDS: ATORVASTATIN 20 MG TAB PO SCH (21:02)
[2022-11-02 06:00] VITALS: BP 144/69; TEMP 97.6; O2SAT 95
[2022-11-02 06:17] LABS: BASO # 0.1 10^3/uL (0.0-0.2); BASO % 1.3 % (0.0-1.0); EOS # 0.4 10^3/uL (0.0-0.5); EOS % 7.6 % (0.0-3.0); HEMOGLOBIN 9.7 g/dl (13.5-17.5); LYMPH # 1.2 10^3/uL (1.5-5.0); LYMPH % 21.8 % (24.0-44.0); MEAN CORPUSCULAR HEMOGLOBIN 29.4 pg (27.0-33.0); MEAN CORPUSCULAR HGB CONC 32.3 g/dl (32.0-36.5); MEAN CORPUSCULAR VOLUME 90.9 fl (80.0-96.0); MONO # 0.5 10^3/uL (0.0-0.8); MONO % 8.7 % (2.0-8.0); NEUTROPHILS # 3.3 10^3/uL (1.5-8.5); NEUTROPHILS % 60.2 % (36.0-66.0); PLATELET COUNT, AUTOMATED 300 10^3/uL (150-450); WHITE BLOOD COUNT 5.4 10^3/uL (4.0-10.0)
[2022-11-02 06:43] LABS: BLOOD UREA NITROGEN 26 MG/DL (9-23); CALCIUM LEVEL 9.4 MG/DL (8.3-10.6); CARBON DIOXIDE LEVEL 29 MMOL/L (20-31); CHLORIDE LEVEL 101 MMOL/L (98-107); CREATININE FOR GFR 0.63 MG/DL (0.70-1.30); GLOMERULAR FILTRATION RATE > 60.0 (>35); GLUCOSE, FASTING 188 MG/DL (74-106); POTASSIUM SERUM 4.2 MMOL/L (3.5-5.1); SODIUM LEVEL 136 MMOL/L (136-145)
[2022-11-02] MEDS: INSULIN LISPRO (NovoLOG) PER UNIT SC SCH ×4 (08:41→20:28)
[2022-11-02] MEDS: glipiZIDE (GLUCOTROL) 5 MG TAB PO SCH ×2 (08:41→17:20)
[2022-11-02] MEDS: DULoxetine 20MG CAP (CYMBALTA) PO SCH (08:42)
[2022-11-02] MEDS: BISACODYL 5MG TAB PO SCH (08:42)
[2022-11-02] MEDS: amLODIPine 5 MG TAB PO SCH ×2 (08:42→20:27)
[2022-11-02] MEDS: SIMETHICONE 80MG CHEW TAB PO SCH ×3 (08:42→20:27)
[2022-11-02] MEDS: ASPIRIN 81MG ENTERIC TABLET PO SCH (08:42)
[2022-11-02] MEDS: DOCUSATE SODIUM 100MG CAPSULE PO SCH ×2 (08:42→20:28)
[2022-11-02] MEDS: ACETAMINOPHEN 500 MG TAB PO SCH ×3 (08:43→20:28)
[2022-11-02] MEDS: PANTOPRAZOLE 40MG TAB (PROTONIX) PO SCH (08:43)
[2022-11-02] MEDS: lisinopriL 5 MG TAB PO SCH (08:43)
[2022-11-02] MEDS: LEVEMIR (INSULIN DETEMIR) 1 UNITS/0.01ML SC SCH ×2 (08:44→20:28)
[2022-11-02] MEDS: HEPARIN SOD (PORCINE) 5000UNITS/ML 1ML VIAL/SYRINGE SQ SCH ×2 (08:45→20:26)
[2022-11-02] MEDS: ALPHA LIPOIC ACID 600 MG PO SCH (08:46)
[2022-11-02] MEDS: BENFOTIAMINE PO SCH (08:46)
[2022-11-02] MEDS: REMEDY PHYTOPLEX Z-GUARD PASTE 113GM TUBE (FROM STOREROOM PRODUCT) TOP SCH ×3 (08:55→20:28)
[2022-11-02 10:00] VITALS: BP 144/69; TEMP 97.6; O2SAT 95
[2022-11-02 12:00] VITALS: BP 143/64; TEMP 97.6; O2SAT 98
[2022-11-02 19:48] VITALS: BP 118/57; TEMP 97.4; O2SAT 95
[2022-11-02] MEDS: ATORVASTATIN 20 MG TAB PO SCH (20:26)
[2022-11-02] MEDS: SENNA 8.6 MG TAB (SENOKOT) PO SCH (20:26)
[2022-11-02] MEDS: LIDOCAINE 5% (LIDODERM) PATCH TD SCH (20:26)
[2022-11-02] MEDS: MAGNESIUM OXIDE 400MG TAB (MAG-OX) PO SCH (20:27)
[2022-11-03] MEDS: oxyCODONE 5MG TAB PO PRN (01:12)
[2022-11-03 05:59] VITALS: BP 132/61; TEMP 97.3; O2SAT 93
[2022-11-03] MEDS: INSULIN LISPRO (NovoLOG) PER UNIT SC SCH ×4 (07:30→21:00)
[2022-11-03] MEDS: amLODIPine 5 MG TAB PO SCH ×2 (08:38→21:00)
[2022-11-03] MEDS: ASPIRIN 81MG ENTERIC TABLET PO SCH (08:38)
[2022-11-03] MEDS: SIMETHICONE 80MG CHEW TAB PO SCH ×3 (08:38→21:00)
[2022-11-03] MEDS: BENFOTIAMINE PO SCH (08:39)
[2022-11-03] MEDS: ALPHA LIPOIC ACID 600 MG PO SCH (08:39)
[2022-11-03] MEDS: ACETAMINOPHEN 500 MG TAB PO SCH ×3 (08:39→21:03)
[2022-11-03] MEDS: lisinopriL 5 MG TAB PO SCH (08:39)
[2022-11-03] MEDS: DULoxetine 20MG CAP (CYMBALTA) PO SCH (08:39)
[2022-11-03] MEDS: PANTOPRAZOLE 40MG TAB (PROTONIX) PO SCH (08:39)
[2022-11-03] MEDS: HEPARIN SOD (PORCINE) 5000UNITS/ML 1ML VIAL/SYRINGE SQ SCH ×2 (08:40→21:01)
[2022-11-03] MEDS: DOCUSATE SODIUM 100MG CAPSULE PO SCH ×2 (08:40→21:01)
[2022-11-03] MEDS: glipiZIDE (GLUCOTROL) 5 MG TAB PO SCH ×2 (08:40→17:51)
[2022-11-03] MEDS: BISACODYL 5MG TAB PO SCH (08:40)
[2022-11-03] MEDS: REMEDY PHYTOPLEX Z-GUARD PASTE 113GM TUBE (FROM STOREROOM PRODUCT) TOP SCH ×3 (09:00→21:00)
[2022-11-03] MEDS: LEVEMIR (INSULIN DETEMIR) 1 UNITS/0.01ML SC SCH ×2 (09:00→21:01)
[2022-11-03 14:00] VITALS: TEMP 97.3; O2SAT 96
[2022-11-03 19:38] VITALS: BP 105/55; TEMP 97.7; O2SAT 97
[2022-11-03] MEDS: ATORVASTATIN 20 MG TAB PO SCH (21:01)
[2022-11-03] MEDS: SENNA 8.6 MG TAB (SENOKOT) PO SCH (21:01)
[2022-11-03] MEDS: MAGNESIUM OXIDE 400MG TAB (MAG-OX) PO SCH (21:01)
[2022-11-03] MEDS: LIDOCAINE 5% (LIDODERM) PATCH TD SCH (21:03)
[2022-11-04] MEDS: oxyCODONE 5MG TAB PO PRN ×2 (00:17→21:14)
[2022-11-04 05:26] VITALS: BP 110/58; TEMP 97.4; O2SAT 98
[2022-11-04] MEDS: glipiZIDE (GLUCOTROL) 5 MG TAB PO SCH ×2 (08:48→16:37)
[2022-11-04] MEDS: DULoxetine 20MG CAP (CYMBALTA) PO SCH (08:49)
[2022-11-04] MEDS: BISACODYL 5MG TAB PO SCH (08:49)
[2022-11-04] MEDS: ASPIRIN 81MG ENTERIC TABLET PO SCH (08:49)
[2022-11-04] MEDS: SIMETHICONE 80MG CHEW TAB PO SCH ×3 (08:49→21:11)
[2022-11-04] MEDS: INSULIN LISPRO (NovoLOG) PER UNIT SC SCH ×4 (08:49→21:00)
[2022-11-04] MEDS: DOCUSATE SODIUM 100MG CAPSULE PO SCH ×2 (08:49→21:11)
[2022-11-04] MEDS: amLODIPine 5 MG TAB PO SCH ×2 (08:50→21:12)
[2022-11-04] MEDS: ALPHA LIPOIC ACID 600 MG PO SCH (08:50)
[2022-11-04] MEDS: lisinopriL 5 MG TAB PO SCH (08:51)
[2022-11-04] MEDS: PANTOPRAZOLE 40MG TAB (PROTONIX) PO SCH (08:51)
[2022-11-04] MEDS: ACETAMINOPHEN 500 MG TAB PO SCH ×3 (08:51→21:13)
[2022-11-04] MEDS: BENFOTIAMINE PO SCH (08:51)
[2022-11-04] MEDS: HEPARIN SOD (PORCINE) 5000UNITS/ML 1ML VIAL/SYRINGE SQ SCH ×2 (08:52→21:11)
[2022-11-04] MEDS: LEVEMIR (INSULIN DETEMIR) 1 UNITS/0.01ML SC SCH (08:53)
[2022-11-04] MEDS: REMEDY PHYTOPLEX Z-GUARD PASTE 113GM TUBE (FROM STOREROOM PRODUCT) TOP SCH ×3 (08:54→21:00)
[2022-11-04 14:00] VITALS: BP 135/63; TEMP 98; O2SAT 96
[2022-11-04 21:08] VITALS: BP 131/85; TEMP 97.5; O2SAT 98
[2022-11-04] MEDS: SENNA 8.6 MG TAB (SENOKOT) PO SCH (21:11)
[2022-11-04] MEDS: ATORVASTATIN 20 MG TAB PO SCH (21:11)
[2022-11-04] MEDS: MAGNESIUM OXIDE 400MG TAB (MAG-OX) PO SCH (21:11)
[2022-11-04] MEDS: LIDOCAINE 5% (LIDODERM) PATCH TD SCH (21:14)
[2022-11-05] MEDS: oxyCODONE 5MG TAB PO PRN ×3 (01:38→22:32)
[2022-11-05] MEDS: POLYVINYL ALCOHOL OPHTH SOLN 15ML (LIQUITEARS) OU PRN (01:43)
[2022-11-05 06:01] VITALS: BP 141/63; TEMP 97.9; O2SAT 98
[2022-11-05 06:12] LABS: BASO # 0.1 10^3/uL (0.0-0.2); BASO % 1.2 % (0.0-1.0); EOS # 0.4 10^3/uL (0.0-0.5); EOS % 6.8 % (0.0-3.0); HEMATOCRIT 32.3 % (42.0-52.0); HEMOGLOBIN 10.4 g/dl (13.5-17.5); LYMPH # 1.5 10^3/uL (1.5-5.0); MEAN CORPUSCULAR HEMOGLOBIN 29.5 pg (27.0-33.0); MEAN CORPUSCULAR HGB CONC 32.2 g/dl (32.0-36.5); MEAN CORPUSCULAR VOLUME 91.5 fl (80.0-96.0); MONO # 0.6 10^3/uL (0.0-0.8); NEUTROPHILS # 3.8 10^3/uL (1.5-8.5); NEUTROPHILS % 59.7 % (36.0-66.0); PLATELET COUNT, AUTOMATED 341 10^3/uL (150-450); RED BLOOD COUNT 3.53 10^6/uL (4.30-6.10); WHITE BLOOD COUNT 6.4 10^3/uL (4.0-10.0)
[2022-11-05 06:29] LABS: BLOOD UREA NITROGEN 23 MG/DL (9-23); CARBON DIOXIDE LEVEL 25 MMOL/L (20-31); CHLORIDE LEVEL 99 MMOL/L (98-107); CREATININE FOR GFR 0.68 MG/DL (0.70-1.30); GLOMERULAR FILTRATION RATE > 60.0 (>35); GLUCOSE, FASTING 282 MG/DL (74-106); POTASSIUM SERUM 4.7 MMOL/L (3.5-5.1); SODIUM LEVEL 132 MMOL/L (136-145)
[2022-11-05] MEDS: DULoxetine 20MG CAP (CYMBALTA) PO SCH (07:53)
[2022-11-05] MEDS: DOCUSATE SODIUM 100MG CAPSULE PO SCH ×2 (07:53→20:19)
[2022-11-05] MEDS: SIMETHICONE 80MG CHEW TAB PO SCH ×3 (07:53→20:21)
[2022-11-05] MEDS: BISACODYL 5MG TAB PO SCH (07:53)
[2022-11-05] MEDS: ALPHA LIPOIC ACID 600 MG PO SCH (07:54)
[2022-11-05] MEDS: glipiZIDE (GLUCOTROL) 5 MG TAB PO SCH ×2 (07:54→17:04)
[2022-11-05] MEDS: BENFOTIAMINE PO SCH (07:54)
[2022-11-05] MEDS: PANTOPRAZOLE 40MG TAB (PROTONIX) PO SCH (07:54)
[2022-11-05] MEDS: LEVEMIR (INSULIN DETEMIR) 1 UNITS/0.01ML SC SCH (07:55)
[2022-11-05] MEDS: HEPARIN SOD (PORCINE) 5000UNITS/ML 1ML VIAL/SYRINGE SQ SCH ×2 (07:55→20:19)
[2022-11-05] MEDS: INSULIN LISPRO (NovoLOG) PER UNIT SC SCH ×4 (07:55→20:21)
[2022-11-05] MEDS: ACETAMINOPHEN 500 MG TAB PO SCH ×3 (07:56→20:21)
[2022-11-05] MEDS: lisinopriL 5 MG TAB PO SCH (07:56)
[2022-11-05] MEDS: ASPIRIN 81MG ENTERIC TABLET PO SCH (07:56)
[2022-11-05] MEDS: amLODIPine 5 MG TAB PO SCH ×2 (07:56→20:22)
[2022-11-05] MEDS: REMEDY PHYTOPLEX Z-GUARD PASTE 113GM TUBE (FROM STOREROOM PRODUCT) TOP SCH ×3 (07:57→20:22)
[2022-11-05 14:00] VITALS: BP 115/57; TEMP 98; O2SAT 95
[2022-11-05 20:00] VITALS: BP 133/58; TEMP 96.9; O2SAT 96
[2022-11-05] MEDS: ATORVASTATIN 20 MG TAB PO SCH (20:20)
[2022-11-05] MEDS: MAGNESIUM OXIDE 400MG TAB (MAG-OX) PO SCH (20:20)
[2022-11-05] MEDS: LIDOCAINE 5% (LIDODERM) PATCH TD SCH (20:22)
[2022-11-05] MEDS: SENNA 8.6 MG TAB (SENOKOT) PO SCH (20:22)
[2022-11-06] MEDS: POLYVINYL ALCOHOL OPHTH SOLN 15ML (LIQUITEARS) OU PRN (02:53)
[2022-11-06] MEDS: amLODIPine 5 MG TAB PO SCH ×2 (05:45→19:54)
[2022-11-06] MEDS: lisinopriL 5 MG TAB PO SCH (05:46)
[2022-11-06 06:00] VITALS: BP 162/80; TEMP 97.3; O2SAT 95
[2022-11-06] MEDS: ASPIRIN 81MG ENTERIC TABLET PO SCH (08:15)
[2022-11-06] MEDS: ACETAMINOPHEN 500 MG TAB PO SCH ×2 (08:16→17:20)
[2022-11-06] MEDS: BISACODYL 5MG TAB PO SCH (08:20)
[2022-11-06] MEDS: DOCUSATE SODIUM 100MG CAPSULE PO SCH ×2 (08:20→19:55)
[2022-11-06] MEDS: PANTOPRAZOLE 40MG TAB (PROTONIX) PO SCH (08:23)
[2022-11-06] MEDS: glipiZIDE (GLUCOTROL) 5 MG TAB PO SCH ×2 (08:23→17:20)
[2022-11-06] MEDS: SIMETHICONE 80MG CHEW TAB PO SCH ×3 (08:23→19:54)
[2022-11-06] MEDS: BENFOTIAMINE PO SCH (08:24)
[2022-11-06] MEDS: ALPHA LIPOIC ACID 600 MG PO SCH (08:24)
[2022-11-06] MEDS: INSULIN LISPRO (NovoLOG) PER UNIT SC SCH ×4 (08:25→19:55)
[2022-11-06] MEDS: REMEDY PHYTOPLEX Z-GUARD PASTE 113GM TUBE (FROM STOREROOM PRODUCT) TOP SCH ×3 (08:26→19:56)
[2022-11-06] MEDS: HEPARIN SOD (PORCINE) 5000UNITS/ML 1ML VIAL/SYRINGE SQ SCH ×2 (08:26→19:47)
[2022-11-06] MEDS: DULoxetine 20MG CAP (CYMBALTA) PO SCH (08:28)
[2022-11-06] MEDS ORDERED: LEVEMIR (INSULIN DETEMIR) 1 UNITS/0.01ML SC SCH ×2 (09:00→21:00)
[2022-11-06 14:00] VITALS: TEMP 98.1; O2SAT 93
[2022-11-06] MEDS: DICLOFENAC EPOLAMINE 1.3% PATCH TOP SCH (19:49)
[2022-11-06] MEDS: LIDOCAINE 5% (LIDODERM) PATCH TD SCH (19:49)
[2022-11-06] MEDS: ACETAMINOPHEN 325 MG TAB PO SCH (19:52)
[2022-11-06] MEDS: ATORVASTATIN 20 MG TAB PO SCH (19:53)
[2022-11-06] MEDS: SENNA 8.6 MG TAB (SENOKOT) PO SCH (19:54)
[2022-11-06] MEDS: MAGNESIUM OXIDE 400MG TAB (MAG-OX) PO SCH (19:55)
[2022-11-06 20:00] VITALS: BP 135/64; TEMP 97.6; O2SAT 96
[2022-11-06] MEDS: SALIVA SUBSTITUTE(MOUTHKOTE) BTL MT SCH (21:00)
[2022-11-07] MEDS: POLYVINYL ALCOHOL OPHTH SOLN 15ML (LIQUITEARS) OU PRN (00:27)
[2022-11-07 05:15] VITALS: BP 134/61; TEMP 97.8; O2SAT 95
[2022-11-07] MEDS ORDERED: LEVEMIR (INSULIN DETEMIR) 1 UNITS/0.01ML SC SCH (09:00)
[2022-11-07] MEDS: REMEDY PHYTOPLEX Z-GUARD PASTE 113GM TUBE (FROM STOREROOM PRODUCT) TOP SCH ×3 (09:00→20:49)
[2022-11-07] MEDS: INSULIN LISPRO (NovoLOG) PER UNIT SC SCH ×4 (09:57→20:49)
[2022-11-07] MEDS: HEPARIN SOD (PORCINE) 5000UNITS/ML 1ML VIAL/SYRINGE SQ SCH ×2 (09:58→20:59)
[2022-11-07] MEDS: SIMETHICONE 80MG CHEW TAB PO SCH ×3 (09:58→20:57)
[2022-11-07] MEDS: glipiZIDE (GLUCOTROL) 5 MG TAB PO SCH ×2 (09:58→17:35)
[2022-11-07] MEDS: lisinopriL 5 MG TAB PO SCH (09:58)
[2022-11-07] MEDS: DOCUSATE SODIUM 100MG CAPSULE PO SCH (09:58)
[2022-11-07] MEDS: DULoxetine 20MG CAP (CYMBALTA) PO SCH (09:58)
[2022-11-07] MEDS: ASPIRIN 81MG ENTERIC TABLET PO SCH (09:58)
[2022-11-07] MEDS: PANTOPRAZOLE 40MG TAB (PROTONIX) PO SCH (09:58)
[2022-11-07] MEDS: amLODIPine 5 MG TAB PO SCH ×2 (09:59→20:59)
[2022-11-07] MEDS: ACETAMINOPHEN 325 MG TAB PO SCH ×3 (09:59→20:58)
[2022-11-07] MEDS: BENFOTIAMINE PO SCH (10:00)
[2022-11-07] MEDS: SALIVA SUBSTITUTE(MOUTHKOTE) BTL MT SCH ×4 (10:00→20:58)
[2022-11-07] MEDS: BISACODYL 5MG TAB PO SCH (10:00)
[2022-11-07] MEDS: ALPHA LIPOIC ACID 600 MG PO SCH (10:00)
[2022-11-07] MEDS ORDERED: LEVEMIR (INSULIN DETEMIR) 1 UNITS/0.01ML SC ONE (12:55)
[2022-11-07 14:00] VITALS: BP 143/65; TEMP 98.1; O2SAT 97
[2022-11-07] MEDS: LEVEMIR (INSULIN DETEMIR) 1 UNITS/0.01ML SC SCH (20:49)
[2022-11-07] MEDS: ATORVASTATIN 20 MG TAB PO SCH (20:58)
[2022-11-07] MEDS: DICLOFENAC EPOLAMINE 1.3% PATCH TOP SCH (21:00)
[2022-11-07] MEDS: LIDOCAINE 5% (LIDODERM) PATCH TD SCH (21:00)
[2022-11-07 21:05] VITALS: BP 137/63; TEMP 98.1; O2SAT 95
[2022-11-08] MEDS: ACETAMINOPHEN TAB 650MG DOSE (2X325MG) PO PRN (02:09)
[2022-11-08] MEDS: ANALGESIC BALM CRM 3OZ TOP PRN (02:21)
[2022-11-08 06:48] VITALS: BP 138/70; TEMP 97.1; O2SAT 100
[2022-11-08] MEDS: LEVEMIR (INSULIN DETEMIR) 1 UNITS/0.01ML SC SCH ×2 (08:10→20:42)
[2022-11-08] MEDS: INSULIN LISPRO (NovoLOG) PER UNIT SC SCH ×4 (08:10→20:43)
[2022-11-08] MEDS: ASPIRIN 81MG ENTERIC TABLET PO SCH (08:11)
[2022-11-08] MEDS: lisinopriL 5 MG TAB PO SCH (08:11)
[2022-11-08] MEDS: SIMETHICONE 80MG CHEW TAB PO SCH ×3 (08:11→20:43)
[2022-11-08] MEDS: DULoxetine 20MG CAP (CYMBALTA) PO SCH (08:11)
[2022-11-08] MEDS: BISACODYL 5MG TAB PO SCH (08:11)
[2022-11-08] MEDS: ACETAMINOPHEN 325 MG TAB PO SCH ×3 (08:11→20:43)
[2022-11-08] MEDS: ALPHA LIPOIC ACID 600 MG PO SCH (08:12)
[2022-11-08] MEDS: glipiZIDE (GLUCOTROL) 5 MG TAB PO SCH ×2 (08:12→16:59)
[2022-11-08] MEDS: HEPARIN SOD (PORCINE) 5000UNITS/ML 1ML VIAL/SYRINGE SQ SCH ×2 (08:12→20:42)
[2022-11-08] MEDS: amLODIPine 5 MG TAB PO SCH ×2 (08:12→20:43)
[2022-11-08] MEDS: PANTOPRAZOLE 40MG TAB (PROTONIX) PO SCH (08:12)
[2022-11-08] MEDS: BENFOTIAMINE PO SCH (08:13)
[2022-11-08] MEDS: REMEDY PHYTOPLEX Z-GUARD PASTE 113GM TUBE (FROM STOREROOM PRODUCT) TOP SCH ×3 (08:13→20:44)
[2022-11-08] MEDS: SALIVA SUBSTITUTE(MOUTHKOTE) BTL MT SCH ×4 (08:15→20:43)
[2022-11-08 14:00] VITALS: BP 117/56; TEMP 97.7; O2SAT 95
[2022-11-08] MEDS ORDERED: GABAPENTIN 100 MG CAP PO SCH (19:00)
[2022-11-08 20:00] VITALS: BP 130/58; TEMP 98; O2SAT 95
[2022-11-08] MEDS: ATORVASTATIN 20 MG TAB PO SCH (20:43)
[2022-11-08] MEDS: DICLOFENAC EPOLAMINE 1.3% PATCH TOP SCH (20:44)
[2022-11-08] MEDS: LIDOCAINE 5% (LIDODERM) PATCH TD SCH (20:44)
[2022-11-09] MEDS: ONDANSETRON 4MG TAB PO PRN (00:43)
[2022-11-09 03:00] VITALS: BP 136/65; O2SAT 95
[2022-11-09 03:33] VITALS: O2SAT 94
[2022-11-09 06:00] VITALS: BP 156/71; TEMP 97.3; O2SAT 98
[2022-11-09] MEDS: INSULIN LISPRO (NovoLOG) PER UNIT SC SCH ×4 (07:03→20:17)
[2022-11-09] MEDS: LEVEMIR (INSULIN DETEMIR) 1 UNITS/0.01ML SC SCH ×2 (07:04→20:16)
[2022-11-09] MEDS: glipiZIDE (GLUCOTROL) 5 MG TAB PO SCH ×2 (07:14→17:07)
[2022-11-09] MEDS: SIMETHICONE 80MG CHEW TAB PO SCH ×3 (07:21→20:13)
[2022-11-09] MEDS: PANTOPRAZOLE 40MG TAB (PROTONIX) PO SCH (07:21)
[2022-11-09] MEDS: BISACODYL 5MG TAB PO SCH (07:21)
[2022-11-09] MEDS: amLODIPine 5 MG TAB PO SCH ×2 (07:21→20:14)
[2022-11-09] MEDS: DULoxetine 20MG CAP (CYMBALTA) PO SCH (07:21)
[2022-11-09] MEDS: ASPIRIN 81MG ENTERIC TABLET PO SCH (07:21)
[2022-11-09] MEDS: HEPARIN SOD (PORCINE) 5000UNITS/ML 1ML VIAL/SYRINGE SQ SCH ×2 (07:22→20:16)
[2022-11-09] MEDS: ALPHA LIPOIC ACID 600 MG PO SCH (07:22)
[2022-11-09] MEDS: ACETAMINOPHEN 325 MG TAB PO SCH ×3 (07:22→20:13)
[2022-11-09] MEDS: lisinopriL 5 MG TAB PO SCH (07:23)
[2022-11-09] MEDS: SALIVA SUBSTITUTE(MOUTHKOTE) BTL MT SCH ×4 (07:23→20:14)
[2022-11-09] MEDS: BENFOTIAMINE PO SCH (07:23)
[2022-11-09] MEDS: LACTOBACILLUS ACIDOPHILUS CAP (BACID) PO SCH ×2 (08:00→17:07)
[2022-11-09] MEDS: REMEDY PHYTOPLEX Z-GUARD PASTE 113GM TUBE (FROM STOREROOM PRODUCT) TOP SCH ×3 (08:55→20:17)
[2022-11-09 10:03] LABS: BASO # 0.1 10^3/uL (0.0-0.2); BASO % 1.3 % (0.0-1.0); EOS # 0.1 10^3/uL (0.0-0.5); EOS % 2.5 % (0.0-3.0); HEMATOCRIT 32.8 % (42.0-52.0); HEMOGLOBIN 10.7 g/dl (13.5-17.5); LYMPH # 0.7 10^3/uL (1.5-5.0); LYMPH % 14.7 % (24.0-44.0); MEAN CORPUSCULAR HEMOGLOBIN 30.1 pg (27.0-33.0); MEAN CORPUSCULAR HGB CONC 32.6 g/dl (32.0-36.5); MEAN CORPUSCULAR VOLUME 92.1 fl (80.0-96.0); MONO # 0.4 10^3/uL (0.0-0.8); NEUTROPHILS # 3.5 10^3/uL (1.5-8.5); NEUTROPHILS % 73.1 % (36.0-66.0); PLATELET COUNT, AUTOMATED 321 10^3/uL (150-450); RED BLOOD COUNT 3.56 10^6/uL (4.30-6.10); WHITE BLOOD COUNT 4.8 10^3/uL (4.0-10.0)
[2022-11-09 10:28] LABS: BLOOD UREA NITROGEN 27 MG/DL (9-23); CALCIUM LEVEL 9.8 MG/DL (8.3-10.6); CARBON DIOXIDE LEVEL 28 MMOL/L (20-31); CHLORIDE LEVEL 97 MMOL/L (98-107); CREATININE FOR GFR 0.71 MG/DL (0.70-1.30); GLOMERULAR FILTRATION RATE > 60.0 (>35); GLUCOSE, FASTING 262 MG/DL (74-106); SODIUM LEVEL 132 MMOL/L (136-145)
[2022-11-09 14:00] VITALS: BP 148/62; TEMP 97.7; O2SAT 95
[2022-11-09 20:00] VITALS: BP 125/58; TEMP 97.7; O2SAT 95
[2022-11-09] MEDS: ATORVASTATIN 20 MG TAB PO SCH (20:14)
[2022-11-09] MEDS: DICLOFENAC EPOLAMINE 1.3% PATCH TOP SCH (20:15)
[2022-11-09] MEDS: LIDOCAINE 5% (LIDODERM) PATCH TD SCH (20:16)
[2022-11-10] MEDS ORDERED: SIMETHICONE 80MG CHEW TAB PO ONE (01:20)
[2022-11-10 06:00] VITALS: BP 147/67; TEMP 97.2; O2SAT 94
[2022-11-10] MEDS: POLYVINYL ALCOHOL OPHTH SOLN 15ML (LIQUITEARS) OU PRN (06:14)
[2022-11-10] MEDS: INSULIN LISPRO (NovoLOG) PER UNIT SC SCH ×4 (07:56→19:58)
[2022-11-10] MEDS: LEVEMIR (INSULIN DETEMIR) 1 UNITS/0.01ML SC SCH ×2 (07:57→19:52)
[2022-11-10] MEDS: HEPARIN SOD (PORCINE) 5000UNITS/ML 1ML VIAL/SYRINGE SQ SCH ×2 (07:57→19:53)
[2022-11-10] MEDS: PANTOPRAZOLE 40MG TAB (PROTONIX) PO SCH (07:58)
[2022-11-10] MEDS: LACTOBACILLUS ACIDOPHILUS CAP (BACID) PO SCH ×2 (07:58→18:01)
[2022-11-10] MEDS: ASPIRIN 81MG ENTERIC TABLET PO SCH (07:58)
[2022-11-10] MEDS: glipiZIDE (GLUCOTROL) 5 MG TAB PO SCH ×2 (07:58→18:02)
[2022-11-10] MEDS: SIMETHICONE 80MG CHEW TAB PO SCH ×3 (07:58→19:54)
[2022-11-10] MEDS: DULoxetine 20MG CAP (CYMBALTA) PO SCH (07:58)
[2022-11-10] MEDS: amLODIPine 5 MG TAB PO SCH ×2 (07:59→19:55)
[2022-11-10] MEDS: lisinopriL 5 MG TAB PO SCH (08:00)
[2022-11-10] MEDS: ALPHA LIPOIC ACID 600 MG PO SCH (08:00)
[2022-11-10] MEDS: BENFOTIAMINE PO SCH (08:00)
[2022-11-10] MEDS: REMEDY PHYTOPLEX Z-GUARD PASTE 113GM TUBE (FROM STOREROOM PRODUCT) TOP SCH ×3 (08:01→19:34)
[2022-11-10] MEDS: SALIVA SUBSTITUTE(MOUTHKOTE) BTL MT SCH ×4 (08:02→20:00)
[2022-11-10] MEDS: ACETAMINOPHEN 325 MG TAB PO SCH ×3 (08:02→19:54)
[2022-11-10] MEDS ORDERED: BISACODYL 5MG TAB PO PRN (09:00)
[2022-11-10 14:00] VITALS: BP 132/68; TEMP 98.2; O2SAT 95
[2022-11-10] MEDS: DICLOFENAC EPOLAMINE 1.3% PATCH TOP SCH (19:56)
[2022-11-10] MEDS: ATORVASTATIN 20 MG TAB PO SCH (19:56)
[2022-11-10] MEDS: LIDOCAINE 5% (LIDODERM) PATCH TD SCH (19:58)
[2022-11-10 20:00] VITALS: BP 135/64; TEMP 97.9; O2SAT 95
[2022-11-11] MEDS: POLYVINYL ALCOHOL OPHTH SOLN 15ML (LIQUITEARS) OU PRN ×2 (03:37→22:24)
[2022-11-11] MEDS: ACETAMINOPHEN TAB 650MG DOSE (2X325MG) PO PRN (03:40)
[2022-11-11 05:31] VITALS: BP 160/82
[2022-11-11 06:00] VITALS: BP 166/74; TEMP 97.4; O2SAT 96
[2022-11-11 06:01] VITALS: BP 138/72
[2022-11-11] MEDS: PANTOPRAZOLE 40MG TAB (PROTONIX) PO SCH (08:22)
[2022-11-11] MEDS: SIMETHICONE 80MG CHEW TAB PO SCH ×3 (08:22→20:10)
[2022-11-11] MEDS: ACETAMINOPHEN 325 MG TAB PO SCH ×3 (08:22→20:10)
[2022-11-11] MEDS: ASPIRIN 81MG ENTERIC TABLET PO SCH (08:22)
[2022-11-11] MEDS: LACTOBACILLUS ACIDOPHILUS CAP (BACID) PO SCH ×2 (08:22→18:12)
[2022-11-11] MEDS: DULoxetine 20MG CAP (CYMBALTA) PO SCH (08:22)
[2022-11-11] MEDS: lisinopriL 5 MG TAB PO SCH (08:23)
[2022-11-11] MEDS: glipiZIDE (GLUCOTROL) 5 MG TAB PO SCH ×2 (08:23→18:13)
[2022-11-11] MEDS: BENFOTIAMINE PO SCH (08:23)
[2022-11-11] MEDS: ALPHA LIPOIC ACID 600 MG PO SCH (08:23)
[2022-11-11] MEDS: amLODIPine 5 MG TAB PO SCH ×2 (08:23→20:11)
[2022-11-11] MEDS: LEVEMIR (INSULIN DETEMIR) 1 UNITS/0.01ML SC SCH ×2 (08:26→20:11)
[2022-11-11] MEDS: INSULIN LISPRO (NovoLOG) PER UNIT SC SCH ×4 (08:27→21:00)
[2022-11-11] MEDS: SALIVA SUBSTITUTE(MOUTHKOTE) BTL MT SCH ×4 (08:27→20:12)
[2022-11-11] MEDS: HEPARIN SOD (PORCINE) 5000UNITS/ML 1ML VIAL/SYRINGE SQ SCH ×2 (08:27→20:11)
[2022-11-11] MEDS: REMEDY PHYTOPLEX Z-GUARD PASTE 113GM TUBE (FROM STOREROOM PRODUCT) TOP SCH ×3 (08:28→21:00)
[2022-11-11 14:00] VITALS: BP 121/58; TEMP 97.7; O2SAT 93
[2022-11-11 20:00] VITALS: BP 131/65; TEMP 97.4; O2SAT 97
[2022-11-11] MEDS: ATORVASTATIN 20 MG TAB PO SCH (20:10)
[2022-11-11] MEDS: LIDOCAINE 5% (LIDODERM) PATCH TD SCH (20:12)
[2022-11-11] MEDS: DICLOFENAC EPOLAMINE 1.3% PATCH TOP SCH (20:12)
[2022-11-12 06:00] VITALS: BP 146/67; TEMP 97.4; O2SAT 96
[2022-11-12 06:23] LABS: BASO # 0.1 10^3/uL (0.0-0.2); EOS # 0.7 10^3/uL (0.0-0.5); EOS % 13.8 % (0.0-3.0); HEMOGLOBIN 10.6 g/dl (13.5-17.5); LYMPH # 1.2 10^3/uL (1.5-5.0); LYMPH % 23.1 % (24.0-44.0); MEAN CORPUSCULAR HEMOGLOBIN 29.9 pg (27.0-33.0); MEAN CORPUSCULAR HGB CONC 32.1 g/dl (32.0-36.5); MONO # 0.5 10^3/uL (0.0-0.8); MONO % 9.2 % (2.0-8.0); NEUTROPHILS # 2.8 10^3/uL (1.5-8.5); NEUTROPHILS % 52.5 % (36.0-66.0); PLATELET COUNT, AUTOMATED 295 10^3/uL (150-450); RED BLOOD COUNT 3.55 10^6/uL (4.30-6.10); WHITE BLOOD COUNT 5.2 10^3/uL (4.0-10.0)
[2022-11-12 06:47] LABS: BLOOD UREA NITROGEN 33 MG/DL (9-23); CALCIUM LEVEL 8.6 MG/DL (8.3-10.6); CARBON DIOXIDE LEVEL 29 MMOL/L (20-31); CHLORIDE LEVEL 103 MMOL/L (98-107); CREATININE FOR GFR 0.64 MG/DL (0.70-1.30); GLOMERULAR FILTRATION RATE > 60.0 (>35); GLUCOSE, FASTING 112 MG/DL (74-106); POTASSIUM SERUM 4.3 MMOL/L (3.5-5.1); SODIUM LEVEL 136 MMOL/L (136-145)
[2022-11-12 08:00] VITALS: BP 136/64; TEMP 97.5; O2SAT 94
[2022-11-12] MEDS: LEVEMIR (INSULIN DETEMIR) 1 UNITS/0.01ML SC SCH ×2 (08:31→20:17)
[2022-11-12] MEDS: INSULIN LISPRO (NovoLOG) PER UNIT SC SCH ×4 (08:31→20:16)
[2022-11-12] MEDS: HEPARIN SOD (PORCINE) 5000UNITS/ML 1ML VIAL/SYRINGE SQ SCH ×2 (08:33→20:17)
[2022-11-12] MEDS: amLODIPine 5 MG TAB PO SCH ×2 (08:33→20:15)
[2022-11-12] MEDS: PANTOPRAZOLE 40MG TAB (PROTONIX) PO SCH (08:33)
[2022-11-12] MEDS: SIMETHICONE 80MG CHEW TAB PO SCH ×3 (08:33→20:15)
[2022-11-12] MEDS: DULoxetine 20MG CAP (CYMBALTA) PO SCH (08:33)
[2022-11-12] MEDS: LACTOBACILLUS ACIDOPHILUS CAP (BACID) PO SCH ×2 (08:33→17:18)
[2022-11-12] MEDS: glipiZIDE (GLUCOTROL) 5 MG TAB PO SCH ×2 (08:33→17:18)
[2022-11-12] MEDS: ASPIRIN 81MG ENTERIC TABLET PO SCH (08:33)
[2022-11-12] MEDS: ACETAMINOPHEN 325 MG TAB PO SCH ×3 (08:34→20:16)
[2022-11-12] MEDS: ALPHA LIPOIC ACID 600 MG PO SCH (08:34)
[2022-11-12] MEDS: lisinopriL 5 MG TAB PO SCH (08:34)
[2022-11-12] MEDS: BENFOTIAMINE PO SCH (08:35)
[2022-11-12] MEDS: REMEDY PHYTOPLEX Z-GUARD PASTE 113GM TUBE (FROM STOREROOM PRODUCT) TOP SCH ×3 (08:35→20:18)
[2022-11-12] MEDS: SALIVA SUBSTITUTE(MOUTHKOTE) BTL MT SCH ×4 (08:36→20:16)
[2022-11-12 14:00] VITALS: BP 147/69; TEMP 97.2; O2SAT 99
[2022-11-12 20:00] VITALS: BP 128/62; TEMP 97.7; O2SAT 97
[2022-11-12] MEDS: ATORVASTATIN 20 MG TAB PO SCH (20:15)
[2022-11-12] MEDS: LIDOCAINE 5% (LIDODERM) PATCH TD SCH (20:18)
[2022-11-12] MEDS: DICLOFENAC EPOLAMINE 1.3% PATCH TOP SCH (20:18)
[2022-11-13] MEDS: POLYVINYL ALCOHOL OPHTH SOLN 15ML (LIQUITEARS) OU PRN (02:11)
[2022-11-13] MEDS: ANALGESIC BALM CRM 3OZ TOP PRN (04:31)
[2022-11-13 06:03] VITALS: BP 123/58; TEMP 97.4; O2SAT 94
[2022-11-13] MEDS: SALIVA SUBSTITUTE(MOUTHKOTE) BTL MT SCH ×4 (08:20→19:56)
[2022-11-13] MEDS: lisinopriL 5 MG TAB PO SCH (08:20)
[2022-11-13] MEDS: PANTOPRAZOLE 40MG TAB (PROTONIX) PO SCH (08:20)
[2022-11-13] MEDS: amLODIPine 5 MG TAB PO SCH ×2 (08:21→19:54)
[2022-11-13] MEDS: glipiZIDE (GLUCOTROL) 5 MG TAB PO SCH ×2 (08:21→16:50)
[2022-11-13] MEDS: BENFOTIAMINE PO SCH (08:22)
[2022-11-13] MEDS: ASPIRIN 81MG ENTERIC TABLET PO SCH (08:22)
[2022-11-13] MEDS: LEVEMIR (INSULIN DETEMIR) 1 UNITS/0.01ML SC SCH ×2 (08:22→19:44)
[2022-11-13] MEDS: DULoxetine 20MG CAP (CYMBALTA) PO SCH (08:22)
[2022-11-13] MEDS: INSULIN LISPRO (NovoLOG) PER UNIT SC SCH ×4 (08:22→19:44)
[2022-11-13] MEDS: ALPHA LIPOIC ACID 600 MG PO SCH (08:22)
[2022-11-13] MEDS: ACETAMINOPHEN 325 MG TAB PO SCH ×3 (08:22→19:55)
[2022-11-13] MEDS: SIMETHICONE 80MG CHEW TAB PO SCH ×3 (08:23→19:53)
[2022-11-13] MEDS: LACTOBACILLUS ACIDOPHILUS CAP (BACID) PO SCH ×2 (08:23→18:13)
[2022-11-13] MEDS: HEPARIN SOD (PORCINE) 5000UNITS/ML 1ML VIAL/SYRINGE SQ SCH ×2 (08:23→19:55)
[2022-11-13] MEDS: REMEDY PHYTOPLEX Z-GUARD PASTE 113GM TUBE (FROM STOREROOM PRODUCT) TOP SCH ×3 (08:25→19:08)
[2022-11-13 14:00] VITALS: BP 120/61; TEMP 97.6; O2SAT 96
[2022-11-13] MEDS: ATORVASTATIN 20 MG TAB PO SCH (19:55)
[2022-11-13] MEDS: DICLOFENAC EPOLAMINE 1.3% PATCH TOP SCH (19:56)
[2022-11-13] MEDS: LIDOCAINE 5% (LIDODERM) PATCH TD SCH (19:56)
[2022-11-13 20:00] VITALS: BP 127/62; TEMP 98.2; O2SAT 97
[2022-11-14] MEDS: POLYVINYL ALCOHOL OPHTH SOLN 15ML (LIQUITEARS) OU PRN (04:00)
[2022-11-14 06:03] VITALS: BP 144/67; TEMP 97.8; O2SAT 94
[2022-11-14] MEDS ORDERED: SIME80TA16 PO (07:50)
[2022-11-14] MEDS ORDERED: CYMB1CAP4 PO (07:50)
[2022-11-14] MEDS: glipiZIDE (GLUCOTROL) 5 MG TAB PO SCH (07:50)
[2022-11-14] MEDS ORDERED: INSUDET SC ×2 (07:50)
[2022-11-14] MEDS ORDERED: ACET32TAB PO (07:50)
[2022-11-14] MEDS ORDERED: AMLO1TAB24 PO (07:50)
[2022-11-14] MEDS ORDERED: INSUHUMDS SC (07:50)
[2022-11-14] MEDS ORDERED: GLIP5TAB8 PO (07:50)
[2022-11-14] MEDS ORDERED: HYDR-643 PO ×3 (07:50)
[2022-11-14] MEDS ORDERED: RISATAB3 PO (07:50)
[2022-11-14] MEDS: HEPARIN SOD (PORCINE) 5000UNITS/ML 1ML VIAL/SYRINGE SQ SCH (07:51)
[2022-11-14] MEDS: INSULIN LISPRO (NovoLOG) PER UNIT SC SCH (07:51)
[2022-11-14] MEDS: SIMETHICONE 80MG CHEW TAB PO SCH (07:52)
[2022-11-14] MEDS: ASPIRIN 81MG ENTERIC TABLET PO SCH (07:52)
[2022-11-14] MEDS: ACETAMINOPHEN 325 MG TAB PO SCH (07:52)
[2022-11-14 07:53] VITALS: BP 144/67
[2022-11-14] MEDS: lisinopriL 5 MG TAB PO SCH (07:53)
[2022-11-14] MEDS: amLODIPine 5 MG TAB PO SCH (07:53)
[2022-11-14] MEDS: LACTOBACILLUS ACIDOPHILUS CAP (BACID) PO SCH (07:53)
[2022-11-14] MEDS: PANTOPRAZOLE 40MG TAB (PROTONIX) PO SCH (07:54)
[2022-11-14] MEDS: ALPHA LIPOIC ACID 600 MG PO SCH (07:54)
[2022-11-14] MEDS: BENFOTIAMINE PO SCH (07:54)
[2022-11-14] MEDS: DULoxetine 20MG CAP (CYMBALTA) PO SCH (07:55)
[2022-11-14] MEDS: REMEDY PHYTOPLEX Z-GUARD PASTE 113GM TUBE (FROM STOREROOM PRODUCT) TOP SCH (07:56)
[2022-11-14] MEDS: SALIVA SUBSTITUTE(MOUTHKOTE) BTL MT SCH (08:03)
[2022-11-14] MEDS ORDERED: LEVEMIR (INSULIN DETEMIR) 1 UNITS/0.01ML SC SCH (09:00)
== END 2022-11-14 08:35 | DRG 57 ==
LOC: M PM&R 17:15
PROVIDERS: ADMIT Physical Medicine & Rehabilitation; ATTEND Physical Medicine & Rehabilitation
DX: I69.351 Hemiplegia and hemiparesis following cerebral infarction affecting right dominant side (principal); I12.9 Hypertensive chronic kidney disease with stage 1 through stage 4 chronic kidney disease, or unspecified chronic kidney disease; I69.391 Dysphagia following cerebral infarction; R13.10 Dysphagia, unspecified; R26.89 Other abnormalities of gait and mobility; M54.50 Low back pain, unspecified; J44.9 Chronic obstructive pulmonary disease, unspecified; E78.5 Hyperlipidemia, unspecified; N18.30 Chronic kidney disease, stage 3 unspecified; E11.22 Type 2 diabetes mellitus with diabetic chronic kidney disease; E11.319 Type 2 diabetes mellitus with unspecified diabetic retinopathy without macular edema; I25.10 Atherosclerotic heart disease of native coronary artery without angina pectoris; G14 Postpolio syndrome; Z74.09 Other reduced mobility; Z74.1 Need for assistance with personal care; Z87.891 Personal history of nicotine dependence; Z79.82 Long term (current) use of aspirin; Z79.4 Long term (current) use of insulin; Z79.899 Other long term (current) drug therapy; Z88.0 Allergy status to penicillin; Z88.8 Allergy status to other drugs, medicaments and biological substances; Z98.49 Cataract extraction status, unspecified eye; Z90.49 Acquired absence of other specified parts of digestive tract; Z85.46 Personal history of malignant neoplasm of prostate; E86.0 Dehydration; R11.0 Nausea; R07.89 Other chest pain; K59.00 Constipation, unspecified; I95.1 Orthostatic hypotension; R00.0 Tachycardia, unspecified; E11.65 Type 2 diabetes mellitus with hyperglycemia

== ENCOUNTER 2022-12-01 02:04 | Inpatient (IN) | payer MEDICARE, BC, OTHER ==
[~2022-12-01] VITALS: Ht 167.6 cm; Wt 63.6 kg
[~2022-12-01 02:04] MED LIST: ACET32TAB PO; AMLO1TAB24 PO; ASPI81TA26 PO; ATOR40TA75 PO; CYMB1CAP4 PO; ENOX40IN3 SC; GLIP5TAB8 PO; HYDR-643 PO; HYDR50TA70 PO; INSU100V13 SQ; INSU100V6 SQ; INSUDET SC; INSUHUMDS SC; LANTINJ4 SC; LIDO5DIS41 TOP; LISI5TAB11 PO; ONDA4SOL IV; PANT40TA29 PO; RISATAB3 PO; SIME80TA16 PO; TRAM50TA2 PO; [UNRECOGNIZED DRUG - CODE] PO
[2022-12-01] MEDS ORDERED: INSU100V6 SQ ×3 (03:03)
[2022-12-01] MEDS ORDERED: BIOTLIQ3 PO (03:03)
[2022-12-01] MEDS ORDERED: GLUCLIQ37 PO (03:03)
[2022-12-01] MEDS ORDERED: MELA5CAP2 PO (03:03)
[2022-12-01] MEDS ORDERED: AMLO1TAB24 PO (03:03)
[2022-12-01] MEDS ORDERED: DULO1CAP4 PO (03:03)
[2022-12-01] MEDS ORDERED: TRUL10IN SC (03:03)
[2022-12-01] MEDS ORDERED: INSUDET SC (03:03)
[2022-12-01] MEDS ORDERED: GLIP5TAB8 PO (03:03)
[2022-12-01] MEDS ORDERED: SIME80CH6 PO (03:03)
[2022-12-01] MEDS ORDERED: BACI1CAP PO (03:03)
[2022-12-01] MEDS ORDERED: ARTIDRO4 OU (03:03)
[2022-12-01] MEDS ORDERED: SILV1CRE60 TOP (03:03)
[2022-12-01] MEDS ORDERED: BISA10SU4 PR (03:04)
[2022-12-01] MEDS ORDERED: ENEMENE PR (03:04)
[2022-12-01] MEDS ORDERED: DICY-61 PO (03:04)
[2022-12-01] MEDS ORDERED: APAP325T4 PO (03:04)
[2022-12-01] MEDS ORDERED: LIDO113S2 TP (03:04)
[2022-12-01] MEDS ORDERED: HYDR-643 PO (03:04)
[2022-12-01] MEDS ORDERED: HOME MED LIST COMPLETE! XX SCH (03:05)
[2022-12-01 03:37] LABS: BASO # 0.1 10^3/uL (0.0-0.2); EOS # 0.6 10^3/uL (0.0-0.5); EOS % 6.9 % (0.0-3.0); LYMPH # 0.6 10^3/uL (1.5-5.0); LYMPH % 6.3 % (24.0-44.0); MEAN CORPUSCULAR HEMOGLOBIN 29.7 pg (27.0-33.0); MEAN CORPUSCULAR HGB CONC 32.4 g/dl (32.0-36.5); MEAN CORPUSCULAR VOLUME 91.9 fl (80.0-96.0); MONO # 0.7 10^3/uL (0.0-0.8); MONO % 8.1 % (2.0-8.0); NEUTROPHILS # 6.8 10^3/uL (1.5-8.5); NEUTROPHILS % 77.4 % (36.0-66.0); PLATELET COUNT, AUTOMATED 322 10^3/uL (150-450); WHITE BLOOD COUNT 8.9 10^3/uL (4.0-10.0)
[2022-12-01 03:48] LABS: LIPASE 18 U/L (12-53)
[2022-12-01] MEDS ORDERED: ONDANSETRON 4MG 2ML VIAL IV ONE (03:50)
[2022-12-01 03:51] LABS: ALBUMIN 3.3 G/DL (3.2-5.2); ALKALINE PHOSPHATASE 85 U/L (46-116); ALT/SGPT 12 U/L (7.0-40); AST/SGOT 19 U/L (<34); BILIRUBIN,DIRECT 0.2 MG/DL (<0.4); BILIRUBIN,TOTAL 0.6 MG/DL (0.3-1.2); BLOOD UREA NITROGEN 23 MG/DL (9-23); CARBON DIOXIDE LEVEL 23 MMOL/L (20-31); CHLORIDE LEVEL 93 MMOL/L (98-107); CREATININE FOR GFR 0.64 MG/DL (0.70-1.30); GLOMERULAR FILTRATION RATE > 60.0 (>35); GLUCOSE, FASTING 391 MG/DL (74-106); POTASSIUM SERUM 5.2 MMOL/L (3.5-5.1); SODIUM LEVEL 130 MMOL/L (136-145); TOTAL PROTEIN 5.9 G/DL (5.7-8.2)
[2022-12-01] MEDS: MORPHINE 4 MG/ML 1ML VIAL IV PRN ×2 (03:58→07:58)
[2022-12-01] MEDS ORDERED: ISOVUE-370 76% 100ML VIAL As Ordered ONE (04:24)
[2022-12-01 04:40] LABS: CK-MB VALUE MASS < 1.0 NG/ML (<3.6)
[2022-12-01 04:41] LABS: CPK CREATINE PHOSPHOKINASE 57 U/L (46-171); MB/CK RELATIVE INDEX 1.75 (< OR =4)
[2022-12-01 05:32] LABS: RSV AMPLIFICATION NEGATIVE (NEGATIVE)
[2022-12-01] MEDS ORDERED: DICYCLOMINE 10 MG CAP PO ONE (06:00)
[2022-12-01] MEDS ORDERED: HYOSCYAMINE SULFATE 0.125 MG SUBL TABLET PO ONE (08:30)
[2022-12-01] MEDS ORDERED: LORazepam 0.5 MG TAB PO STA (10:49)
[2022-12-01] MEDS ORDERED: HumuLIN R (REGULAR) INSULIN (NovoLIN R) **100U/ML** PER UNIT SC ONE (11:10)
[2022-12-01 11:34] LABS: VENOUS BASE EXCESS -9.5 (-2.0-2.0); VENOUS HCO3 17.2 MMOL/L (23.0-27.0); VENOUS O2 SATURATION 91.8 % (60.0-80.0); VENOUS PARTIAL PRESSURE CO2 40.7 mmHg (38.0-50.0); VENOUS PARTIAL PRESSURE O2 73.2 mmHg (30.0-50.0); VENOUS PH 7.244 UNITS (7.330-7.430); VENOUS STANDARD HCO3 16.8 MMOL/L; VENOUS TOTAL CO2 18.5 MMOL/L (24.0-28.0)
[2022-12-01 12:39] LABS: ACETONE/KETONE > 4.50 MMOL/L (0.02-0.27); BLOOD UREA NITROGEN 30 MG/DL (9-23); CALCIUM LEVEL 9.4 MG/DL (8.3-10.6); CARBON DIOXIDE LEVEL 17 MMOL/L (20-31); CHLORIDE LEVEL 89 MMOL/L (98-107); CREATININE FOR GFR 0.94 MG/DL (0.70-1.30); GLOMERULAR FILTRATION RATE > 60.0 (>35); GLUCOSE, FASTING 544 MG/DL (74-106); POTASSIUM SERUM 6.6 MMOL/L (3.5-5.1); SODIUM LEVEL 129 MMOL/L (136-145)
[2022-12-01] MEDS ORDERED: NS 1,000 ML IV ONE (13:05)
[2022-12-01] MEDS ORDERED: INSULIN REGULAR IN 0.9 % NACL 100 UNIT in IV 1 EA IV SCH ×2 (13:05)
[2022-12-01] MEDS ORDERED: INSULIN IV RATE CHANGE DOCUMENTATION ML/HR XX SCH (13:05)
[2022-12-01] MEDS ORDERED: PATIROMER SORBITEX CALCIUM 8.4 GM POWDER PACKET (VELTASSA) PO ONE (13:10)
[2022-12-01] MEDS ORDERED: LR 1,000 ML IV ONE (15:25)
[2022-12-01 17:45] LABS: BLOOD UREA NITROGEN 35 MG/DL (9-23); CALCIUM LEVEL 8.7 MG/DL (8.3-10.6); CARBON DIOXIDE LEVEL 22 MMOL/L (20-31); CHLORIDE LEVEL 97 MMOL/L (98-107); CREATININE FOR GFR 1.14 MG/DL (0.70-1.30); GLOMERULAR FILTRATION RATE > 60.0 (>35); GLUCOSE, FASTING 315 MG/DL (74-106); POTASSIUM SERUM 4.6 MMOL/L (3.5-5.1); SODIUM LEVEL 134 MMOL/L (136-145)
[2022-12-01] MEDS ORDERED: LEVEMIR (INSULIN DETEMIR) 1 UNITS/0.01ML SC ONE (17:50)
[2022-12-01] MEDS ORDERED: D5W/0.45% SODIUM CHLORIDE 1,000 ML IV SCH (18:05)
[2022-12-01 20:28] LABS: VENOUS BASE EXCESS 2.7 (-2.0-2.0); VENOUS HCO3 28.7 MMOL/L (23.0-27.0); VENOUS O2 SATURATION 91.9 % (60.0-80.0); VENOUS PARTIAL PRESSURE CO2 50.5 mmHg (38.0-50.0); VENOUS PARTIAL PRESSURE O2 64.9 mmHg (30.0-50.0); VENOUS PH 7.372 UNITS (7.330-7.430); VENOUS STANDARD HCO3 26.8 MMOL/L; VENOUS TOTAL CO2 30.2 MMOL/L (24.0-28.0)
[2022-12-01] MEDS ORDERED: DEXTROSE 50% 50ML SYRINGE IV PRN (20:40)
[2022-12-01] MEDS ORDERED: GLUCOSE 4GM CHEW TABLET PO PRN (20:40)
[2022-12-01] MEDS ORDERED: BISACODYL 10MG SUPP PR PRN (20:40)
[2022-12-01] MEDS ORDERED: GLUCAGON INJ 1MG VIAL SC PRN (20:40)
[2022-12-01 20:50] LABS: BLOOD UREA NITROGEN 35 MG/DL (9-23); CALCIUM LEVEL 8.9 MG/DL (8.3-10.6); CARBON DIOXIDE LEVEL 26 MMOL/L (20-31); CHLORIDE LEVEL 100 MMOL/L (98-107); CREATININE FOR GFR 1.14 MG/DL (0.70-1.30); GLOMERULAR FILTRATION RATE > 60.0 (>35); GLUCOSE, FASTING 207 MG/DL (74-106); POTASSIUM SERUM 4.6 MMOL/L (3.5-5.1); SODIUM LEVEL 135 MMOL/L (136-145)
[2022-12-01] MEDS: SIMETHICONE 80MG CHEW TAB PO SCH (21:00)
[2022-12-01] MEDS: DULoxetine 20MG CAP (CYMBALTA) PO SCH (21:00)
[2022-12-01] MEDS ORDERED: amLODIPine 5 MG TAB PO SCH (21:00)
[2022-12-01] MEDS: INSULIN LISPRO (NovoLOG) PER UNIT SC SCH (21:00)
[2022-12-01] MEDS: ACETAMINOPHEN TAB 650MG DOSE (2X325MG) PO PRN (21:43)
[2022-12-01] MEDS: NS 1,000 ML IV SCH (21:45)
[2022-12-01 23:55] VITALS: BP 126/58; TEMP 97.8; O2SAT 98
[2022-12-02 03:53] VITALS: BP 113/53; TEMP 98.5; O2SAT 94
[2022-12-02 05:00] LABS: HEMATOCRIT 30.1 % (42.0-52.0); HEMOGLOBIN 9.5 g/dl (13.5-17.5); MEAN CORPUSCULAR HEMOGLOBIN 29.1 pg (27.0-33.0); MEAN CORPUSCULAR HGB CONC 31.6 g/dl (32.0-36.5); PLATELET COUNT, AUTOMATED 338 10^3/uL (150-450); RED BLOOD COUNT 3.27 10^6/uL (4.30-6.10); WHITE BLOOD COUNT 13.1 10^3/uL (4.0-10.0)
[2022-12-02 05:25] LABS: BLOOD UREA NITROGEN 38 MG/DL (9-23); CALCIUM LEVEL 8.9 MG/DL (8.3-10.6); CARBON DIOXIDE LEVEL 27 MMOL/L (20-31); CHLORIDE LEVEL 102 MMOL/L (98-107); CREATININE FOR GFR 1.05 MG/DL (0.70-1.30); GLOMERULAR FILTRATION RATE > 60.0 (>35); GLUCOSE, FASTING 57 MG/DL (74-106); MAGNESIUM LEVEL 1.8 MG/DL (1.8-2.4); POTASSIUM SERUM 4.4 MMOL/L (3.5-5.1); SODIUM LEVEL 138 MMOL/L (136-145)
[2022-12-02] MEDS: INSULIN LISPRO (NovoLOG) PER UNIT SC SCH ×4 (07:30→20:44)
[2022-12-02 08:09] VITALS: BP 134/61; TEMP 97.2; O2SAT 94
[2022-12-02] MEDS: SIMETHICONE 80MG CHEW TAB PO SCH ×3 (08:33→20:39)
[2022-12-02] MEDS: ATORVASTATIN 20 MG TAB PO SCH (08:33)
[2022-12-02] MEDS: ASPIRIN 81MG ENTERIC TABLET PO SCH (08:33)
[2022-12-02] MEDS: NS 1,000 ML IV SCH (08:34)
[2022-12-02] MEDS: lisinopriL 5 MG TAB PO SCH (08:34)
[2022-12-02] MEDS: amLODIPine 5 MG TAB PO SCH (08:34)
[2022-12-02] MEDS: SODIUM CHLORIDE NASAL 0.65% SPRAY BTL (OCEAN) SCH ×2 (09:00→20:36)
[2022-12-02] MEDS: SALIVA SUBSTITUTE(MOUTHKOTE) BTL MT SCH ×3 (09:00→20:36)
[2022-12-02] MEDS: LEVEMIR (INSULIN DETEMIR) 1 UNITS/0.01ML SC SCH (09:00)
[2022-12-02] MEDS: POLYVINYL ALCOHOL OPHTH SOLN 15ML (LIQUITEARS) OU SCH ×3 (09:00→20:37)
[2022-12-02] MEDS ORDERED: LEVEMIR (INSULIN DETEMIR) 1 UNITS/0.01ML SC ONE (09:15)
[2022-12-02] MEDS: DULoxetine 20MG CAP (CYMBALTA) PO SCH ×2 (10:47→20:39)
[2022-12-02] MEDS: SILVER SULFADIAZINE 1% CR 50 GM JAR TOP SCH ×2 (10:48→20:35)
[2022-12-02 11:47] VITALS: BP 131/60; TEMP 97.7; O2SAT 93
[2022-12-02] MEDS: HEPARIN SOD (PORCINE) 5000UNITS/ML 1ML VIAL/SYRINGE SQ SCH ×2 (12:21→20:39)
[2022-12-02 16:01] VITALS: BP 116/56; TEMP 97.2; O2SAT 92
[2022-12-02] MEDS ORDERED: NS 1,000 ML IV ONE (19:40)
[2022-12-02 19:53] VITALS: BP 130/60; TEMP 98; O2SAT 92
[2022-12-02] MEDS ORDERED: ANALGESIC BALM CRM 3OZ TOP PRN (20:00)
[2022-12-02] MEDS: RAMELTEON 8 MG TAB (ROZEREM) PO SCH (20:38)
[2022-12-02] MEDS: ACETAMINOPHEN TAB 650MG DOSE (2X325MG) PO PRN (23:03)
[2022-12-02 23:14] VITALS: BP 120/56; TEMP 98.6; O2SAT 94
[2022-12-03] MEDS: DICYCLOMINE 10 MG CAP PO PRN ×2 (01:07→21:53)
[2022-12-03 04:09] VITALS: BP 119/57; TEMP 97.2; O2SAT 92
[2022-12-03] MEDS: HEPARIN SOD (PORCINE) 5000UNITS/ML 1ML VIAL/SYRINGE SQ SCH ×3 (05:13→21:32)
[2022-12-03 05:17] LABS: HEMATOCRIT 25.8 % (42.0-52.0); HEMOGLOBIN 8.5 g/dl (13.5-17.5); MEAN CORPUSCULAR HEMOGLOBIN 30.2 pg (27.0-33.0); MEAN CORPUSCULAR HGB CONC 32.9 g/dl (32.0-36.5); MEAN CORPUSCULAR VOLUME 91.8 fl (80.0-96.0); PLATELET COUNT, AUTOMATED 257 10^3/uL (150-450); RED BLOOD COUNT 2.81 10^6/uL (4.30-6.10); WHITE BLOOD COUNT 7.2 10^3/uL (4.0-10.0)
[2022-12-03] MEDS: ACETAMINOPHEN TAB 650MG DOSE (2X325MG) PO PRN (05:18)
[2022-12-03 05:38] LABS: BLOOD UREA NITROGEN 25 MG/DL (9-23); CALCIUM LEVEL 8.3 MG/DL (8.3-10.6); CARBON DIOXIDE LEVEL 26 MMOL/L (20-31); CHLORIDE LEVEL 102 MMOL/L (98-107); CREATININE FOR GFR 0.61 MG/DL (0.70-1.30); GLOMERULAR FILTRATION RATE > 60.0 (>35); GLUCOSE, FASTING 151 MG/DL (74-106); MAGNESIUM LEVEL 1.7 MG/DL (1.8-2.4); POTASSIUM SERUM 4.1 MMOL/L (3.5-5.1); SODIUM LEVEL 135 MMOL/L (136-145)
[2022-12-03] MEDS: INSULIN LISPRO (NovoLOG) PER UNIT SC SCH ×4 (07:30→21:00)
[2022-12-03 08:20] VITALS: BP 130/62; TEMP 97.5; O2SAT 93
[2022-12-03] MEDS: LEVEMIR (INSULIN DETEMIR) 1 UNITS/0.01ML SC SCH (09:00)
[2022-12-03] MEDS: SALIVA SUBSTITUTE(MOUTHKOTE) BTL MT SCH ×6 (09:00→21:35)
[2022-12-03 09:30] VITALS: BP 150/67
[2022-12-03] MEDS: ASPIRIN 81MG ENTERIC TABLET PO SCH (09:50)
[2022-12-03] MEDS: DULoxetine 20MG CAP (CYMBALTA) PO SCH ×2 (09:50→21:33)
[2022-12-03] MEDS: SIMETHICONE 80MG CHEW TAB PO SCH ×3 (09:50→21:33)
[2022-12-03] MEDS: ATORVASTATIN 20 MG TAB PO SCH (09:51)
[2022-12-03] MEDS: amLODIPine 5 MG TAB PO SCH (09:51)
[2022-12-03] MEDS: lisinopriL 5 MG TAB PO SCH (09:51)
[2022-12-03] MEDS: POLYVINYL ALCOHOL OPHTH SOLN 15ML (LIQUITEARS) OU SCH ×2 (09:52→15:04)
[2022-12-03] MEDS: SODIUM CHLORIDE NASAL 0.65% SPRAY BTL (OCEAN) SCH ×2 (09:52→21:33)
[2022-12-03] MEDS: SILVER SULFADIAZINE 1% CR 50 GM JAR TOP SCH ×2 (09:53→21:34)
[2022-12-03] MEDS ORDERED: cloNIDine 0.1MG TABLET PO PRN (11:20)
[2022-12-03 12:00] VITALS: BP 143/67; TEMP 97.4; O2SAT 96
[2022-12-03 15:42] VITALS: BP 128/55; TEMP 97.3; O2SAT 95
[2022-12-03 20:30] VITALS: BP 124/61; TEMP 97.3; O2SAT 96
[2022-12-03] MEDS: RAMELTEON 8 MG TAB (ROZEREM) PO SCH (21:33)
[2022-12-03] MEDS: POLYVINYL ALCOHOL OPHTH SOLN 15ML (LIQUITEARS) OU PRN (21:54)
[2022-12-04 00:07] VITALS: BP 133/63; TEMP 97.1; O2SAT 94
[2022-12-04] MEDS: SALIVA SUBSTITUTE(MOUTHKOTE) BTL MT SCH ×11 (00:53→20:21)
[2022-12-04] MEDS ORDERED: INSULIN LISPRO (NovoLOG) PER UNIT SC ONE (02:55)
[2022-12-04] MEDS: ACETAMINOPHEN TAB 650MG DOSE (2X325MG) PO PRN (03:10)
[2022-12-04 03:46] VITALS: BP 128/61; TEMP 97; O2SAT 96
[2022-12-04] MEDS: HEPARIN SOD (PORCINE) 5000UNITS/ML 1ML VIAL/SYRINGE SQ SCH ×3 (05:04→20:36)
[2022-12-04] MEDS: ONDANSETRON 4MG 2ML VIAL IV PRN (05:14)
[2022-12-04 07:03] LABS: HEMATOCRIT 28.8 % (42.0-52.0); HEMOGLOBIN 9.3 g/dl (13.5-17.5); MEAN CORPUSCULAR HGB CONC 32.3 g/dl (32.0-36.5); MEAN CORPUSCULAR VOLUME 92.9 fl (80.0-96.0); PLATELET COUNT, AUTOMATED 300 10^3/uL (150-450)
[2022-12-04 07:45] VITALS: BP 126/58; TEMP 97.7; O2SAT 96
[2022-12-04 07:58] LABS: BLOOD UREA NITROGEN 16 MG/DL (9-23); CALCIUM LEVEL 8.6 MG/DL (8.3-10.6); CARBON DIOXIDE LEVEL 25 MMOL/L (20-31); CHLORIDE LEVEL 101 MMOL/L (98-107); CREATININE FOR GFR 0.52 MG/DL (0.70-1.30); GLOMERULAR FILTRATION RATE > 60.0 (>35); GLUCOSE, FASTING 221 MG/DL (74-106); MAGNESIUM LEVEL 1.6 MG/DL (1.8-2.4); POTASSIUM SERUM 4.1 MMOL/L (3.5-5.1); SODIUM LEVEL 137 MMOL/L (136-145)
[2022-12-04] MEDS: INSULIN LISPRO (NovoLOG) PER UNIT SC SCH ×4 (08:46→20:21)
[2022-12-04] MEDS: lisinopriL 5 MG TAB PO SCH (08:49)
[2022-12-04] MEDS: DULoxetine 20MG CAP (CYMBALTA) PO SCH ×2 (08:49→20:34)
[2022-12-04] MEDS: SODIUM CHLORIDE NASAL 0.65% SPRAY BTL (OCEAN) SCH ×2 (08:49→20:37)
[2022-12-04] MEDS: amLODIPine 5 MG TAB PO SCH (08:49)
[2022-12-04] MEDS: ATORVASTATIN 20 MG TAB PO SCH (08:49)
[2022-12-04] MEDS: SIMETHICONE 80MG CHEW TAB PO SCH ×3 (08:49→20:35)
[2022-12-04] MEDS: ASPIRIN 81MG ENTERIC TABLET PO SCH (08:49)
[2022-12-04] MEDS: SILVER SULFADIAZINE 1% CR 50 GM JAR TOP SCH ×2 (08:50→20:38)
[2022-12-04] MEDS ORDERED: LEVEMIR (INSULIN DETEMIR) 1 UNITS/0.01ML SC SCH (09:00)
[2022-12-04 11:55] VITALS: BP 109/65; TEMP 97.3; O2SAT 94
[2022-12-04 12:56] LABS: ERYTHROCYTE SEDIMENTATION RATE 28 mm/hr (0-20)
[2022-12-04 13:20] LABS: HEMOGLOBIN A1c 8.3 % (4.0-6.0)
[2022-12-04] MEDS: MAGNESIUM OXIDE 400MG TAB (MAG-OX) PO SCH ×2 (15:29→20:34)
[2022-12-04] MEDS ORDERED: ISOVUE-370 76% 100ML VIAL As Ordered ONE (18:29)
[2022-12-04] MEDS: PILOCARPINE 4% PO SCH (19:06)
[2022-12-04 20:03] VITALS: BP 117/57; TEMP 97.1; O2SAT 95
[2022-12-04] MEDS: MIRALAX *UNIT DOSE* 17GM PACKET PO SCH (20:32)
[2022-12-04] MEDS: RAMELTEON 8 MG TAB (ROZEREM) PO SCH (20:35)
[2022-12-04] MEDS: POLYVINYL ALCOHOL OPHTH SOLN 15ML (LIQUITEARS) OU PRN ×2 (20:36→23:29)
[2022-12-05] MEDS: ACETAMINOPHEN TAB 650MG DOSE (2X325MG) PO PRN ×2 (02:43→23:05)
[2022-12-05] MEDS: SALIVA SUBSTITUTE(MOUTHKOTE) BTL MT SCH ×8 (03:00→20:08)
[2022-12-05 04:19] VITALS: BP 150/66; TEMP 97.6; O2SAT 96
[2022-12-05] MEDS: DICYCLOMINE 10 MG CAP PO PRN (04:20)
[2022-12-05 05:10] LABS: HEMOGLOBIN 9.8 g/dl (13.5-17.5); MEAN CORPUSCULAR HEMOGLOBIN 30.3 pg (27.0-33.0); MEAN CORPUSCULAR HGB CONC 32.7 g/dl (32.0-36.5); MEAN CORPUSCULAR VOLUME 92.9 fl (80.0-96.0); PLATELET COUNT, AUTOMATED 275 10^3/uL (150-450); RED BLOOD COUNT 3.23 10^6/uL (4.30-6.10); WHITE BLOOD COUNT 6.2 10^3/uL (4.0-10.0)
[2022-12-05 05:36] LABS: BLOOD UREA NITROGEN 16 MG/DL (9-23); CALCIUM LEVEL 8.7 MG/DL (8.3-10.6); CARBON DIOXIDE LEVEL 24 MMOL/L (20-31); CHLORIDE LEVEL 99 MMOL/L (98-107); CREATININE FOR GFR 0.52 MG/DL (0.70-1.30); GLOMERULAR FILTRATION RATE > 60.0 (>35); GLUCOSE, FASTING 310 MG/DL (74-106); MAGNESIUM LEVEL 1.7 MG/DL (1.8-2.4); POTASSIUM SERUM 4.7 MMOL/L (3.5-5.1); SODIUM LEVEL 134 MMOL/L (136-145)
[2022-12-05] MEDS: HEPARIN SOD (PORCINE) 5000UNITS/ML 1ML VIAL/SYRINGE SQ SCH ×3 (05:42→21:42)
[2022-12-05 08:00] VITALS: BP 124/58; TEMP 97.6; O2SAT 95
[2022-12-05] MEDS: INSULIN LISPRO (NovoLOG) PER UNIT SC SCH ×4 (08:42→20:17)
[2022-12-05] MEDS: PILOCARPINE 4% PO SCH ×3 (08:42→17:13)
[2022-12-05] MEDS: MIRALAX *UNIT DOSE* 17GM PACKET PO SCH ×2 (08:43→20:08)
[2022-12-05] MEDS: LACTULOSE 20GM/30ML SYRUP UDC PO SCH ×4 (08:43→20:09)
[2022-12-05] MEDS: MAGNESIUM OXIDE 400MG TAB (MAG-OX) PO SCH ×3 (08:43→20:09)
[2022-12-05] MEDS: SIMETHICONE 80MG CHEW TAB PO SCH ×3 (08:44→20:09)
[2022-12-05] MEDS: ATORVASTATIN 20 MG TAB PO SCH (08:44)
[2022-12-05] MEDS: ASPIRIN 81MG ENTERIC TABLET PO SCH (08:44)
[2022-12-05] MEDS: DULoxetine 20MG CAP (CYMBALTA) PO SCH ×2 (08:44→20:09)
[2022-12-05] MEDS: SODIUM CHLORIDE NASAL 0.65% SPRAY BTL (OCEAN) SCH ×2 (08:45→21:41)
[2022-12-05] MEDS: SILVER SULFADIAZINE 1% CR 50 GM JAR TOP SCH ×2 (08:46→21:41)
[2022-12-05 08:47] VITALS: BP 102/54
[2022-12-05] MEDS: amLODIPine 5 MG TAB PO SCH (09:00)
[2022-12-05] MEDS: lisinopriL 5 MG TAB PO SCH (09:00)
[2022-12-05] MEDS ORDERED: LEVEMIR (INSULIN DETEMIR) 1 UNITS/0.01ML SC SCH ×2 (09:00→21:00)
[2022-12-05] MEDS: ONDANSETRON 4MG 2ML VIAL IV PRN (12:09)
[2022-12-05] MEDS: NYSTATIN 500,000U/5ML SUSP UDC SS SCH ×3 (12:34→20:08)
[2022-12-05] MEDS: LEVEMIR (INSULIN DETEMIR) 1 UNITS/0.01ML SC SCH (12:36)
[2022-12-05 14:28] VITALS: BP 122/64; TEMP 97.9; O2SAT 96
[2022-12-05] MEDS: POLYVINYL ALCOHOL OPHTH SOLN 15ML (LIQUITEARS) OU PRN (20:08)
[2022-12-05] MEDS: RAMELTEON 8 MG TAB (ROZEREM) PO SCH (20:09)
[2022-12-05 20:13] VITALS: BP 136/71; TEMP 98.1; O2SAT 96
[2022-12-05] MEDS ORDERED: DICYCLOMINE 10 MG CAP PO ONE (23:15)
[2022-12-06] VITALS: BP 136/71; PULSE 89; O2SAT 96
[2022-12-06] MEDS: SALIVA SUBSTITUTE(MOUTHKOTE) BTL MT SCH ×8 (00:15→21:23)
[2022-12-06] MEDS: LACTULOSE 20GM/30ML SYRUP UDC PO SCH (01:00)
[2022-12-06] MEDS: INSULIN LISPRO (NovoLOG) PER UNIT SC SCH ×6 (01:14→22:32)
[2022-12-06] MEDS: ACETAMINOPHEN TAB 650MG DOSE (2X325MG) PO PRN ×2 (02:46→17:30)
[2022-12-06 04:00] VITALS: BP 136/71; PULSE 89; O2SAT 96
[2022-12-06] MEDS: DICYCLOMINE 10 MG CAP PO PRN (05:09)
[2022-12-06] MEDS: NYSTATIN 500,000U/5ML SUSP UDC SS SCH ×3 (05:15→17:29)
[2022-12-06] MEDS: HEPARIN SOD (PORCINE) 5000UNITS/ML 1ML VIAL/SYRINGE SQ SCH ×3 (05:16→21:22)
[2022-12-06] MEDS: POLYVINYL ALCOHOL OPHTH SOLN 15ML (LIQUITEARS) OU PRN ×2 (05:17→21:23)
[2022-12-06 06:08] LABS: HEMATOCRIT 28.1 % (42.0-52.0); HEMOGLOBIN 9.1 g/dl (13.5-17.5); MEAN CORPUSCULAR HEMOGLOBIN 29.5 pg (27.0-33.0); MEAN CORPUSCULAR HGB CONC 32.4 g/dl (32.0-36.5); MEAN CORPUSCULAR VOLUME 91.2 fl (80.0-96.0); PLATELET COUNT, AUTOMATED 301 10^3/uL (150-450); RED BLOOD COUNT 3.08 10^6/uL (4.30-6.10); WHITE BLOOD COUNT 6.3 10^3/uL (4.0-10.0)
[2022-12-06 06:16] VITALS: BP 113/57; TEMP 98.4; O2SAT 96
[2022-12-06 06:32] LABS: BLOOD UREA NITROGEN 16 MG/DL (9-23); CALCIUM LEVEL 8.6 MG/DL (8.3-10.6); CARBON DIOXIDE LEVEL 30 MMOL/L (20-31); CHLORIDE LEVEL 101 MMOL/L (98-107); CREATININE FOR GFR 0.55 MG/DL (0.70-1.30); GLOMERULAR FILTRATION RATE > 60.0 (>35); GLUCOSE, FASTING 184 MG/DL (74-106); MAGNESIUM LEVEL 2.1 MG/DL (1.8-2.4); SODIUM LEVEL 137 MMOL/L (136-145)
[2022-12-06] MEDS: DULoxetine 20MG CAP (CYMBALTA) PO SCH ×2 (08:23→21:24)
[2022-12-06] MEDS: PILOCARPINE 4% PO SCH ×3 (08:23→17:29)
[2022-12-06] MEDS: ASPIRIN 81MG ENTERIC TABLET PO SCH (08:23)
[2022-12-06] MEDS: SIMETHICONE 80MG CHEW TAB PO SCH ×3 (08:23→21:24)
[2022-12-06] MEDS: amLODIPine 5 MG TAB PO SCH (08:25)
[2022-12-06] MEDS: MAGNESIUM OXIDE 400MG TAB (MAG-OX) PO SCH ×3 (08:26→21:24)
[2022-12-06] MEDS: ATORVASTATIN 20 MG TAB PO SCH (08:26)
[2022-12-06] MEDS: lisinopriL 5 MG TAB PO SCH (08:26)
[2022-12-06] MEDS: LEVEMIR (INSULIN DETEMIR) 1 UNITS/0.01ML SC SCH (08:27)
[2022-12-06] MEDS: MIRALAX *UNIT DOSE* 17GM PACKET PO SCH ×2 (08:27→21:00)
[2022-12-06] MEDS: SODIUM CHLORIDE NASAL 0.65% SPRAY BTL (OCEAN) SCH ×2 (09:00→21:23)
[2022-12-06] MEDS: SILVER SULFADIAZINE 1% CR 50 GM JAR TOP SCH ×2 (09:00→21:23)
[2022-12-06] MEDS ORDERED: MAALOX 30 ML SUSP *UDC PO PRN (11:10)
[2022-12-06] MEDS: DICYCLOMINE 10 MG CAP PO SCH ×2 (11:10→21:24)
[2022-12-06] MEDS: PANTOPRAZOLE 40MG TAB (PROTONIX) PO SCH (11:10)
[2022-12-06 14:00] VITALS: BP 111/59; TEMP 98.4; O2SAT 97
[2022-12-06] MEDS: RAMELTEON 8 MG TAB (ROZEREM) PO SCH (21:23)
[2022-12-06 22:26] VITALS: BP 109/46; TEMP 97.2
[2022-12-07] MEDS: NYSTATIN 500,000U/5ML SUSP UDC SS SCH ×2 (01:14→06:13)
[2022-12-07] MEDS: POLYVINYL ALCOHOL OPHTH SOLN 15ML (LIQUITEARS) OU PRN (01:14)
[2022-12-07] MEDS: SALIVA SUBSTITUTE(MOUTHKOTE) BTL MT SCH ×4 (01:15→10:24)
[2022-12-07] MEDS: INSULIN LISPRO (NovoLOG) PER UNIT SC SCH ×3 (01:15→06:13)
[2022-12-07 05:55] VITALS: BP 144/70; TEMP 98.4; O2SAT 96
[2022-12-07] MEDS: HEPARIN SOD (PORCINE) 5000UNITS/ML 1ML VIAL/SYRINGE SQ SCH (06:00)
[2022-12-07 06:33] LABS: HEMATOCRIT 29.4 % (42.0-52.0); HEMOGLOBIN 9.6 g/dl (13.5-17.5); MEAN CORPUSCULAR HEMOGLOBIN 30.1 pg (27.0-33.0); MEAN CORPUSCULAR HGB CONC 32.7 g/dl (32.0-36.5); MEAN CORPUSCULAR VOLUME 92.2 fl (80.0-96.0); PLATELET COUNT, AUTOMATED 310 10^3/uL (150-450); RED BLOOD COUNT 3.19 10^6/uL (4.30-6.10); WHITE BLOOD COUNT 6.6 10^3/uL (4.0-10.0)
[2022-12-07 07:07] LABS: BLOOD UREA NITROGEN 17 MG/DL (9-23); CALCIUM LEVEL 8.4 MG/DL (8.3-10.6); CARBON DIOXIDE LEVEL 28 MMOL/L (20-31); CHLORIDE LEVEL 99 MMOL/L (98-107); CREATININE FOR GFR 0.49 MG/DL (0.70-1.30); GLOMERULAR FILTRATION RATE > 60.0 (>35); GLUCOSE, FASTING 178 MG/DL (74-106); POTASSIUM SERUM 4.4 MMOL/L (3.5-5.1); SODIUM LEVEL 134 MMOL/L (136-145)
[2022-12-07 09:25] LABS: MAGNESIUM LEVEL 2.1 MG/DL (1.8-2.4)
[2022-12-07] MEDS ORDERED: PANT40TA29 PO (10:11)
[2022-12-07] MEDS ORDERED: NYST-38 SS (10:11)
[2022-12-07] MEDS ORDERED: CLONI1TA PO (10:11)
[2022-12-07] MEDS ORDERED: MIRA1POW3 PO (10:11)
[2022-12-07] MEDS ORDERED: DRON2.5C11 PO (10:11)
[2022-12-07] MEDS ORDERED: DICY-61 PO (10:11)
[2022-12-07] MEDS ORDERED: MYLASSUD PO (10:11)
[2022-12-07] MEDS ORDERED: INSUHUMDS SC (10:11)
[2022-12-07] MEDS ORDERED: INSUDET SC (10:11)
[2022-12-07] MEDS ORDERED: PILO4SOL6 PO (10:11)
[2022-12-07] MEDS ORDERED: INSU100V6 SQ (10:11)
[2022-12-07] MEDS ORDERED: MAGN400T2 PO (10:11)
[2022-12-07] MEDS ORDERED: ARTIDRO2 OU (10:11)
[2022-12-07 10:19] VITALS: BP 138/70
[2022-12-07] MEDS: amLODIPine 5 MG TAB PO SCH (10:19)
[2022-12-07] MEDS: MAGNESIUM OXIDE 400MG TAB (MAG-OX) PO SCH (10:20)
[2022-12-07] MEDS: ASPIRIN 81MG ENTERIC TABLET PO SCH (10:20)
[2022-12-07] MEDS: SIMETHICONE 80MG CHEW TAB PO SCH (10:21)
[2022-12-07] MEDS: ATORVASTATIN 20 MG TAB PO SCH (10:21)
[2022-12-07] MEDS: DICYCLOMINE 10 MG CAP PO SCH (10:21)
[2022-12-07] MEDS: MIRALAX *UNIT DOSE* 17GM PACKET PO SCH (10:21)
[2022-12-07] MEDS: PANTOPRAZOLE 40MG TAB (PROTONIX) PO SCH (10:21)
[2022-12-07] MEDS: DULoxetine 20MG CAP (CYMBALTA) PO SCH (10:22)
[2022-12-07] MEDS: LEVEMIR (INSULIN DETEMIR) 1 UNITS/0.01ML SC SCH (10:23)
[2022-12-07] MEDS: lisinopriL 5 MG TAB PO SCH (10:23)
[2022-12-07] MEDS: SODIUM CHLORIDE NASAL 0.65% SPRAY BTL (OCEAN) SCH (10:25)
[2022-12-07] MEDS: SILVER SULFADIAZINE 1% CR 50 GM JAR TOP SCH (10:25)
[2022-12-07] MEDS ORDERED: INSULIN LISPRO (NovoLOG) PER UNIT SC SCH ×3 (12:00→21:00)
== END 2022-12-07 10:40 | DRG 638 ==
LOC: M ED 02:04 → M ED INP 20:37 → ENRESERV 23:19 → M PCU 23:45 → M MS5PR 12-05 14:20
PROVIDERS: ADMIT Family Medicine; ATTEND Family Medicine
DX: E11.10 Type 2 diabetes mellitus with ketoacidosis without coma (principal); I69.351 Hemiplegia and hemiparesis following cerebral infarction affecting right dominant side; J44.9 Chronic obstructive pulmonary disease, unspecified; I12.9 Hypertensive chronic kidney disease with stage 1 through stage 4 chronic kidney disease, or unspecified chronic kidney disease; N18.9 Chronic kidney disease, unspecified; E11.65 Type 2 diabetes mellitus with hyperglycemia; E11.649 Type 2 diabetes mellitus with hypoglycemia without coma; K58.1 Irritable bowel syndrome with constipation; E78.5 Hyperlipidemia, unspecified; E11.22 Type 2 diabetes mellitus with diabetic chronic kidney disease; Z66 Do not resuscitate; F41.9 Anxiety disorder, unspecified; F43.23 Adjustment disorder with mixed anxiety and depressed mood; R63.4 Abnormal weight loss; R11.2 Nausea with vomiting, unspecified; F07.89 Other personality and behavioral disorders due to known physiological condition; M35.00 Sjogren syndrome, unspecified; G89.29 Other chronic pain; R53.83 Other fatigue; Z79.82 Long term (current) use of aspirin; Z79.4 Long term (current) use of insulin; Z86.12 Personal history of poliomyelitis; Z79.899 Other long term (current) drug therapy; Z88.0 Allergy status to penicillin; Z88.8 Allergy status to other drugs, medicaments and biological substances; Z85.46 Personal history of malignant neoplasm of prostate; Z85.828 Personal history of other malignant neoplasm of skin

== ENCOUNTER → 2022-12-10 | Outpatient (REF) | payer MEDICARE, BC, OTHER ==
[~2022-12-10] MED LIST changes: +APAP325T4 PO; +ARTIDRO2 OU; +ARTIDRO4 OU; +BACI1CAP PO; +BIOTLIQ3 PO; +BISA10SU4 PR; +CLONI1TA PO; +DICY-61 PO; +DRON2.5C11 PO; +DULO1CAP4 PO; +ENEMENE PR; +GLUCLIQ37 PO; +LIDO113S2 TP; +MAGN400T2 PO; +MELA5CAP2 PO; +MIRA1POW3 PO; +MYLASSUD PO; +NYST-38 SS; +PILO4SOL6 PO; +SILV1CRE60 TOP; +SIME80CH6 PO; +TRUL10IN SC
[2022-12-10 08:16] LABS: HEMATOCRIT 34.1 % (42.0-52.0); HEMOGLOBIN 11.2 g/dl (13.5-17.5); MEAN CORPUSCULAR HEMOGLOBIN 30.2 pg (27.0-33.0); MEAN CORPUSCULAR HGB CONC 32.8 g/dl (32.0-36.5); MEAN CORPUSCULAR VOLUME 91.9 fl (80.0-96.0); PLATELET COUNT, AUTOMATED 429 10^3/uL (150-450); RED BLOOD COUNT 3.71 10^6/uL (4.30-6.10); WHITE BLOOD COUNT 9.1 10^3/uL (4.0-10.0)
[2022-12-10 08:50] LABS: BLOOD UREA NITROGEN 15 MG/DL (9-23); CALCIUM LEVEL 9.3 MG/DL (8.3-10.6); CARBON DIOXIDE LEVEL 26 MMOL/L (20-31); CHLORIDE LEVEL 94 MMOL/L (98-107); CREATININE FOR GFR 0.54 MG/DL (0.70-1.30); GLOMERULAR FILTRATION RATE > 60.0 (>35); GLUCOSE, FASTING 277 MG/DL (74-106); POTASSIUM SERUM 4.6 MMOL/L (3.5-5.1); SODIUM LEVEL 131 MMOL/L (136-145)
== END ==
PROVIDERS: ATTEND Internal Medicine
DX: E11.9 Type 2 diabetes mellitus without complications (principal)

== ENCOUNTER 2022-12-12 09:19 | Emergency (ER) | payer MEDICARE, BC, OTHER ==
[~2022-12-12] VITALS: Ht 167.6 cm; Wt 58.6 kg
[~2022-12-12 09:19] MED LIST changes: -BISA10EN PR; -CLON-412 PO; -FAMO40TA3 PO; -GLUC1KIT IM; -GLUC1LIQ18 PO; -INSUHUMDS SQ; -LIDO1CRE2 TOP; -MAG30ORA8 PO; -METO5TAB2 PO; -MILKSUS3 PO; -MYLA1SUS PO; -OMEP1CAP73 PO; -PILO4SOL6 SL; -SUCR1TAB56 PO
[2022-12-12] MEDS ORDERED: MAGIC MOUTHWASH *ED ONLY* 5ML ORAL SYRINGE SS ONE (09:50)
[2022-12-12] MEDS ORDERED: NS 1,000 ML IV SCH (09:50)
[2022-12-12 09:54] LABS: BASO # 0.1 10^3/uL (0.0-0.2); BASO % 0.7 % (0.0-1.0); EOS # 0.4 10^3/uL (0.0-0.5); EOS % 4.9 % (0.0-3.0); HEMATOCRIT 34.2 % (42.0-52.0); HEMOGLOBIN 11.4 g/dl (13.5-17.5); LYMPH # 0.8 10^3/uL (1.5-5.0); LYMPH % 11.3 % (24.0-44.0); MEAN CORPUSCULAR HEMOGLOBIN 29.8 pg (27.0-33.0); MEAN CORPUSCULAR HGB CONC 33.3 g/dl (32.0-36.5); MEAN CORPUSCULAR VOLUME 89.3 fl (80.0-96.0); MONO # 0.6 10^3/uL (0.0-0.8); MONO % 8.5 % (2.0-8.0); NEUTROPHILS # 5.5 10^3/uL (1.5-8.5); NEUTROPHILS % 74.3 % (36.0-66.0); PLATELET COUNT, AUTOMATED 402 10^3/uL (150-450); RED BLOOD COUNT 3.83 10^6/uL (4.30-6.10); WHITE BLOOD COUNT 7.4 10^3/uL (4.0-10.0)
[2022-12-12 10:25] LABS: LIPASE 23 U/L (12-53)
[2022-12-12 10:27] LABS: ALBUMIN 3.7 G/DL (3.2-5.2); ALKALINE PHOSPHATASE 97 U/L (46-116); ALT/SGPT 14 U/L (7.0-40); AST/SGOT 26 U/L (<34); BILIRUBIN,DIRECT 0.2 MG/DL (<0.4); BILIRUBIN,TOTAL 0.5 MG/DL (0.3-1.2); BLOOD UREA NITROGEN 22 MG/DL (9-23); CALCIUM LEVEL 9.4 MG/DL (8.3-10.6); CARBON DIOXIDE LEVEL 28 MMOL/L (20-31); CHLORIDE LEVEL 93 MMOL/L (98-107); CREATININE FOR GFR 0.57 MG/DL (0.70-1.30); GLOMERULAR FILTRATION RATE > 60.0 (>35); GLUCOSE, FASTING 193 MG/DL (74-106); POTASSIUM SERUM 5.1 MMOL/L (3.5-5.1); SODIUM LEVEL 130 MMOL/L (136-145); TOTAL PROTEIN 6.6 G/DL (5.7-8.2)
[2022-12-12] MEDS ORDERED: ISOVUE-370 76% 100ML VIAL As Ordered ONE (10:40)
[2022-12-12] MEDS ORDERED: ACETAMINOPHEN 500 MG TAB PO ONE (11:30)
[2022-12-12] MEDS ORDERED: FAMO40TA3 PO (12:17)
[2022-12-12] MEDS ORDERED: LIDO1CRE2 TOP (12:17)
[2022-12-12] MEDS ORDERED: BISA10EN PR (12:17)
[2022-12-12] MEDS ORDERED: CLON-412 PO (12:19)
[2022-12-12] MEDS ORDERED: GLUC1KIT IM (12:23)
[2022-12-12] MEDS ORDERED: MIRA1POW3 PO (12:23)
[2022-12-12] MEDS ORDERED: INSUHUMDS SQ (12:28)
[2022-12-12] MEDS ORDERED: INSUHUMDS SC (12:30)
[2022-12-12] MEDS ORDERED: MILKSUS3 PO (12:45)
[2022-12-12] MEDS ORDERED: MYLA1SUS PO (12:45)
[2022-12-12] MEDS ORDERED: INSUDET SC (12:45)
[2022-12-12 13:04] VITALS: BP 151/57; O2SAT 98
[2022-12-12 13:05] VITALS: TEMP 96.5
== END 2022-12-12 13:47 | disposition home or self-care (01) ==
LOC: EDBD 09:19 → M ED 09:19
DX: R10.9 Unspecified abdominal pain (principal); R68.2 Dry mouth, unspecified; L98.8 Other specified disorders of the skin and subcutaneous tissue; E11.9 Type 2 diabetes mellitus without complications; I12.9 Hypertensive chronic kidney disease with stage 1 through stage 4 chronic kidney disease, or unspecified chronic kidney disease; Z86.73 Personal history of transient ischemic attack (TIA), and cerebral infarction without residual deficits; Z85.46 Personal history of malignant neoplasm of prostate; J44.9 Chronic obstructive pulmonary disease, unspecified; N18.9 Chronic kidney disease, unspecified; Z88.0 Allergy status to penicillin; Z88.4 Allergy status to anesthetic agent; Z79.899 Other long term (current) drug therapy; Z79.82 Long term (current) use of aspirin; Z79.4 Long term (current) use of insulin
CPT/HCPCS: 74177; 80048; 80076; 83690; 85025; 87252; 93005; 93041; 96360; 96361; 99285; Q9967

== ENCOUNTER → 2022-12-12 | Outpatient (REF) ==
[~2022-12-12] MED LIST changes: +BISA10EN PR; +CLON-412 PO; +FAMO40TA3 PO; +GLUC1KIT IM; +GLUC1LIQ18 PO; +INSUHUMDS SQ; +LIDO1CRE2 TOP; +MAG30ORA8 PO; +METO5TAB2 PO; +MILKSUS3 PO; +MYLA1SUS PO; +OMEP1CAP73 PO; +PILO4SOL6 SL; +SUCR1TAB56 PO
[2022-12-12 10:23] LABS: BASO # 0.1 10^3/uL (0.0-0.2); BASO % 0.7 % (0.0-1.0); EOS # 0.4 10^3/uL (0.0-0.5); EOS % 5.6 % (0.0-3.0); HEMATOCRIT 33.4 % (42.0-52.0); LYMPH # 0.8 10^3/uL (1.5-5.0); MEAN CORPUSCULAR HEMOGLOBIN 29.7 pg (27.0-33.0); MEAN CORPUSCULAR HGB CONC 32.9 g/dl (32.0-36.5); MEAN CORPUSCULAR VOLUME 90.3 fl (80.0-96.0); MONO # 0.7 10^3/uL (0.0-0.8); MONO % 9.7 % (2.0-8.0); NEUTROPHILS # 5.5 10^3/uL (1.5-8.5); NEUTROPHILS % 72.7 % (36.0-66.0); PLATELET COUNT, AUTOMATED 410 10^3/uL (150-450); WHITE BLOOD COUNT 7.5 10^3/uL (4.0-10.0)
[2022-12-12 10:45] LABS: THYROID STIMULATING HORMONE 2.324 uIU/ML (0.55-4.78); THYROXINE (T4) 11.5 UG/DL (4.5-10.9)
[2022-12-12 10:48] LABS: BLOOD UREA NITROGEN 23 MG/DL (9-23); CALCIUM LEVEL 9.1 MG/DL (8.3-10.6); CARBON DIOXIDE LEVEL 28 MMOL/L (20-31); CHLORIDE LEVEL 92 MMOL/L (98-107); CREATININE FOR GFR 0.57 MG/DL (0.70-1.30); GLOMERULAR FILTRATION RATE > 60.0 (>35); GLUCOSE, FASTING 185 MG/DL (74-106); POTASSIUM SERUM 4.9 MMOL/L (3.5-5.1); SODIUM LEVEL 128 MMOL/L (136-145)
[2022-12-12 10:53] LABS: HEMOGLOBIN A1c 7.8 % (4.0-6.0)
== END ==
PROVIDERS: ATTEND Internal Medicine
DX: E11.9 Type 2 diabetes mellitus without complications (principal); I67.9 Cerebrovascular disease, unspecified

== ENCOUNTER 2022-12-16 10:46 | Inpatient (IN) | payer MEDICARE, BC, OTHER ==
[~2022-12-16] VITALS: Ht 167.6 cm; Wt 58.6 kg
[~2022-12-16 10:46] MED LIST changes: +BISA10EN PR; +CLON-412 PO; +FAMO40TA3 PO; +GLUC1KIT IM; +INSUHUMDS SQ; +LIDO1CRE2 TOP; +MILKSUS3 PO; +MYLA1SUS PO
[2022-12-16] MEDS ORDERED: NS 1,000 ML IV SCH (11:00)
[2022-12-16 11:25] LABS: BASO # 0.1 10^3/uL (0.0-0.2); BASO % 0.3 % (0.0-1.0); EOS # 0.2 10^3/uL (0.0-0.5); EOS % 0.8 % (0.0-3.0); HEMATOCRIT 36.9 % (42.0-52.0); HEMOGLOBIN 12.3 g/dl (13.5-17.5); LYMPH # 0.4 10^3/uL (1.5-5.0); LYMPH % 1.8 % (24.0-44.0); MEAN CORPUSCULAR HEMOGLOBIN 30.3 pg (27.0-33.0); MEAN CORPUSCULAR HGB CONC 33.3 g/dl (32.0-36.5); MEAN CORPUSCULAR VOLUME 90.9 fl (80.0-96.0); MONO # 0.4 10^3/uL (0.0-0.8); MONO % 1.6 % (2.0-8.0); NEUTROPHILS # 20.9 10^3/uL (1.5-8.5); NEUTROPHILS % 95.1 % (36.0-66.0); PLATELET COUNT, AUTOMATED 487 10^3/uL (150-450); RED BLOOD COUNT 4.06 10^6/uL (4.30-6.10)
[2022-12-16 11:30] LABS: ERYTHROCYTE SEDIMENTATION RATE 58 mm/hr (0-20)
[2022-12-16] MEDS ORDERED: LevoFLOXacin IV 750 MG in IV 1 EA IV ONE (11:35)
[2022-12-16] MEDS ORDERED: NS 1,760 ML in IV 1 EA IV ONE (11:35)
[2022-12-16 11:36] LABS: INR 1.01
[2022-12-16 11:37] LABS: PARTIAL THROMBOPLASTIN TIME 24.8 SECONDS (24.8-34.2)
[2022-12-16 12:49] LABS: AMYLASE 38 U/L (30-118)
[2022-12-16] MEDS ORDERED: ISOVUE-370 76% 100ML VIAL As Ordered ONE (12:52)
[2022-12-16 13:01] LABS: PROCALCITONIN 0.86 ng/ml
[2022-12-16 13:10] LABS: ALBUMIN 3.2 G/DL (3.2-5.2); ALKALINE PHOSPHATASE 85 U/L (46-116); ALT/SGPT 21 U/L (7.0-40); AST/SGOT 57 U/L (<34); BILIRUBIN,DIRECT 0.1 MG/DL (<0.4); BILIRUBIN,TOTAL 0.5 MG/DL (0.3-1.2); BLOOD UREA NITROGEN 19 MG/DL (9-23); CALCIUM LEVEL 8.8 MG/DL (8.3-10.6); CARBON DIOXIDE LEVEL 26 MMOL/L (20-31); CHLORIDE LEVEL 96 MMOL/L (98-107); CK-MB VALUE MASS < 1.0 NG/ML (<3.6); CPK CREATINE PHOSPHOKINASE 75 U/L (46-171); CREATININE FOR GFR 0.55 MG/DL (0.70-1.30); GLOMERULAR FILTRATION RATE > 60.0 (>35); GLUCOSE, FASTING 96 MG/DL (74-106); MB/CK RELATIVE INDEX 1.33 (< OR =4); POTASSIUM SERUM 5.2 MMOL/L (3.5-5.1); SODIUM LEVEL 131 MMOL/L (136-145); TOTAL PROTEIN 6.3 G/DL (5.7-8.2)
[2022-12-16] MEDS ORDERED: ACETAMINOPHEN TAB 650MG DOSE (2X325MG) PO ONE (13:50)
[2022-12-16 15:30] LABS: CK-MB VALUE MASS < 1.0 NG/ML (<3.6); CPK CREATINE PHOSPHOKINASE 43 U/L (46-171); MB/CK RELATIVE INDEX 2.32 (< OR =4)
[2022-12-16] MEDS ORDERED: DEXTROSE 50% 50ML SYRINGE IV STA (15:41)
[2022-12-16] MEDS ORDERED: MED REC IN PROGRESS XX SCH (16:00)
[2022-12-16] MEDS ORDERED: GLUCAGON INJ 1MG VIAL SC PRN (16:50)
[2022-12-16] MEDS ORDERED: DEXTROSE 50% 50ML SYRINGE IV PRN (16:50)
[2022-12-16] MEDS ORDERED: ACETAMINOPHEN 650MG SUPP PR PRN (16:50)
[2022-12-16] MEDS ORDERED: GLUCOSE 4GM CHEW TABLET PO PRN (16:50)
[2022-12-16] MEDS ORDERED: ALBUTEROL SULFATE 2.5MG/0.5ML INH NEB SOLN NEB PRN (16:50)
[2022-12-16] MEDS ORDERED: PANTOPRAZOLE 40MG VIAL IV SCH (17:00)
[2022-12-16] MEDS ORDERED: NYSTATIN 500,000U/5ML SUSP UDC SS SCH (17:00)
[2022-12-16] MEDS: MORPHINE 2 MG/ML 1ML VIAL IV PRN (17:40)
[2022-12-16] MEDS: CEFEPIME HCL 2 GM in D5W MINI-BAG PLUS 50 ML IV SCH ×2 (17:42→18:31)
[2022-12-16] MEDS ORDERED: PILO4SOL6 SL (17:43)
[2022-12-16] MEDS ORDERED: MYLA1SUS PO (17:43)
[2022-12-16] MEDS ORDERED: MAGN400T2 PO (17:43)
[2022-12-16] MEDS ORDERED: SUCR1TAB56 PO (17:43)
[2022-12-16] MEDS ORDERED: MAG30ORA8 PO (17:43)
[2022-12-16] MEDS ORDERED: OMEP1CAP73 PO (17:43)
[2022-12-16] MEDS ORDERED: GLUC1LIQ18 PO (17:43)
[2022-12-16] MEDS ORDERED: METO5TAB2 PO (17:43)
[2022-12-16] MEDS ORDERED: HOME MED LIST COMPLETE! XX SCH (17:45)
[2022-12-16] MEDS ORDERED: BISACODYL 10MG SUPP PR PRN (17:55)
[2022-12-16] MEDS ORDERED: MAGIC MOUTHWASH SUSPENSION BTL SSP PRN (17:55)
[2022-12-16 19:01] LABS: ALBUMIN 2.6 G/DL (3.2-5.2); ALKALINE PHOSPHATASE 73 U/L (46-116); ALT/SGPT 14 U/L (7.0-40); AST/SGOT 18 U/L (<34); BILIRUBIN,TOTAL 0.6 MG/DL (0.3-1.2); BLOOD UREA NITROGEN 13 MG/DL (9-23); CALCIUM LEVEL 7.9 MG/DL (8.3-10.6); CARBON DIOXIDE LEVEL 26 MMOL/L (20-31); CHLORIDE LEVEL 100 MMOL/L (98-107); CREATININE FOR GFR 0.57 MG/DL (0.70-1.30); GLOMERULAR FILTRATION RATE > 60.0 (>35); GLUCOSE, FASTING 145 MG/DL (74-106); POTASSIUM SERUM 4.3 MMOL/L (3.5-5.1); SODIUM LEVEL 134 MMOL/L (136-145); TOTAL PROTEIN 5.1 G/DL (5.7-8.2)
[2022-12-16 19:11] VITALS: BP 134/64; TEMP 98.4; O2SAT 94
[2022-12-16 20:03] VITALS: BP 106/51; TEMP 98.2; O2SAT 94
[2022-12-16] MEDS: DOXYCYCLINE HYCLATE 100 MG in D5W MINI-BAG PLUS 100 ML IV SCH (20:53)
[2022-12-16] MEDS: D5W/0.9% SODIUM CHLORIDE 1,000 ML IV SCH (20:56)
[2022-12-16] MEDS: PANTOPRAZOLE 40MG VIAL IV SCH (21:04)
[2022-12-16] MEDS: SILVER SULFADIAZINE 1% CR 50 GM JAR TOP SCH (21:05)
[2022-12-16] MEDS: POLYVINYL ALCOHOL OPHTH SOLN 15ML (LIQUITEARS) OU SCH (21:05)
[2022-12-16] MEDS: PILOCARPINE 4% XX SCH (21:05)
[2022-12-16] MEDS: NYSTATIN 500,000U/5ML SUSP UDC SSP SCH (21:05)
[2022-12-16] MEDS: metroNIDAZOLE 500 MG in IV 1 EA IV SCH (21:50)
[2022-12-17] MEDS: MORPHINE 2 MG/ML 1ML VIAL IV PRN ×4 (00:55→22:50)
[2022-12-17] MEDS: metroNIDAZOLE 500 MG in IV 1 EA IV SCH ×3 (04:22→20:32)
[2022-12-17] MEDS: D5W/0.9% SODIUM CHLORIDE 1,000 ML IV SCH ×2 (05:28→13:41)
[2022-12-17] MEDS: CEFEPIME HCL 2 GM in D5W MINI-BAG PLUS 50 ML IV SCH ×2 (05:41→17:51)
[2022-12-17 05:47] LABS: HEMATOCRIT 28.5 % (42.0-52.0); HEMOGLOBIN 9.3 g/dl (13.5-17.5); MEAN CORPUSCULAR HEMOGLOBIN 30.2 pg (27.0-33.0); MEAN CORPUSCULAR HGB CONC 32.6 g/dl (32.0-36.5); MEAN CORPUSCULAR VOLUME 92.5 fl (80.0-96.0); RED BLOOD COUNT 3.08 10^6/uL (4.30-6.10); WHITE BLOOD COUNT 19.5 10^3/uL (4.0-10.0)
[2022-12-17 06:07] LABS: PLATELET COUNT, AUTOMATED 344 10^3/uL (150-450)
[2022-12-17 06:10] LABS: ALBUMIN 2.4 G/DL (3.2-5.2); ALKALINE PHOSPHATASE 72 U/L (46-116); ALT/SGPT 10 U/L (7.0-40); AST/SGOT 13 U/L (<34); BILIRUBIN,TOTAL 0.6 MG/DL (0.3-1.2); BLOOD UREA NITROGEN 11 MG/DL (9-23); CALCIUM LEVEL 8.4 MG/DL (8.3-10.6); CARBON DIOXIDE LEVEL 26 MMOL/L (20-31); CHLORIDE LEVEL 102 MMOL/L (98-107); CREATININE FOR GFR 0.54 MG/DL (0.70-1.30); GLOMERULAR FILTRATION RATE > 60.0 (>35); GLUCOSE, FASTING 157 MG/DL (74-106); POTASSIUM SERUM 4.2 MMOL/L (3.5-5.1); SODIUM LEVEL 134 MMOL/L (136-145)
[2022-12-17 06:35] VITALS: BP 127/58; TEMP 98.1; O2SAT 93
[2022-12-17] MEDS: DOXYCYCLINE HYCLATE 100 MG in D5W MINI-BAG PLUS 100 ML IV SCH ×2 (06:50→18:48)
[2022-12-17] MEDS: PANTOPRAZOLE 40MG VIAL IV SCH ×2 (08:59→20:31)
[2022-12-17] MEDS: POLYVINYL ALCOHOL OPHTH SOLN 15ML (LIQUITEARS) OU SCH ×3 (08:59→20:32)
[2022-12-17] MEDS: PILOCARPINE 4% XX SCH ×3 (08:59→17:51)
[2022-12-17] MEDS: SILVER SULFADIAZINE 1% CR 50 GM JAR TOP SCH ×2 (08:59→20:32)
[2022-12-17] MEDS: NYSTATIN 500,000U/5ML SUSP UDC SSP SCH ×4 (08:59→20:31)
[2022-12-17] MEDS ORDERED: SALIVA SUBSTITUTE(MOUTHKOTE) BTL MT PRN (10:25)
[2022-12-17] MEDS ORDERED: LIDOCAINE 1% MDV 20ML VIAL As Ordered ONE (14:18)
[2022-12-17] MEDS: ONDANSETRON 4MG 2ML VIAL IV PRN (15:45)
[2022-12-17 16:15] VITALS: BP 131/63; TEMP 98.2; O2SAT 93
[2022-12-17] MEDS: INSULIN LISPRO (NovoLOG) PER UNIT SC SCH ×2 (17:52→20:33)
[2022-12-17] MEDS: NS 1,000 ML IV SCH (17:56)
[2022-12-17 22:00] VITALS: BP 142/63; TEMP 98.2; O2SAT 94
[2022-12-18] MEDS: NS 1,000 ML IV SCH ×2 (03:25→14:23)
[2022-12-18] MEDS: metroNIDAZOLE 500 MG in IV 1 EA IV SCH ×3 (04:03→20:47)
[2022-12-18] MEDS: CEFEPIME HCL 2 GM in D5W MINI-BAG PLUS 50 ML IV SCH ×2 (05:36→17:02)
[2022-12-18 06:01] VITALS: BP 156/70; TEMP 98.2; O2SAT 100
[2022-12-18 06:31] LABS: HEMOGLOBIN 9.1 g/dl (13.5-17.5); MEAN CORPUSCULAR HEMOGLOBIN 29.4 pg (27.0-33.0); MEAN CORPUSCULAR HGB CONC 31.4 g/dl (32.0-36.5); MEAN CORPUSCULAR VOLUME 93.9 fl (80.0-96.0); PLATELET COUNT, AUTOMATED 334 10^3/uL (150-450); RED BLOOD COUNT 3.09 10^6/uL (4.30-6.10); WHITE BLOOD COUNT 13.3 10^3/uL (4.0-10.0)
[2022-12-18] MEDS: MORPHINE 2 MG/ML 1ML VIAL IV PRN ×2 (06:34→18:35)
[2022-12-18 06:51] LABS: ALBUMIN 2.5 G/DL (3.2-5.2); ALKALINE PHOSPHATASE 82 U/L (46-116); ALT/SGPT 15 U/L (7.0-40); AST/SGOT 20 U/L (<34); BILIRUBIN,TOTAL 0.6 MG/DL (0.3-1.2); BLOOD UREA NITROGEN 11 MG/DL (9-23); CALCIUM LEVEL 8.7 MG/DL (8.3-10.6); CARBON DIOXIDE LEVEL 22 MMOL/L (20-31); CHLORIDE LEVEL 100 MMOL/L (98-107); CREATININE FOR GFR 0.56 MG/DL (0.70-1.30); GLOMERULAR FILTRATION RATE > 60.0 (>35); GLUCOSE, FASTING 264 MG/DL (74-106); POTASSIUM SERUM 4.3 MMOL/L (3.5-5.1); SODIUM LEVEL 133 MMOL/L (136-145); TOTAL PROTEIN 5.2 G/DL (5.7-8.2)
[2022-12-18] MEDS: DOXYCYCLINE HYCLATE 100 MG in D5W MINI-BAG PLUS 100 ML IV SCH ×2 (07:13→18:35)
[2022-12-18] MEDS: POLYVINYL ALCOHOL OPHTH SOLN 15ML (LIQUITEARS) OU SCH ×3 (08:12→20:49)
[2022-12-18] MEDS: PANTOPRAZOLE 40MG VIAL IV SCH ×2 (08:12→20:48)
[2022-12-18] MEDS: NYSTATIN 500,000U/5ML SUSP UDC SSP SCH ×4 (08:12→20:47)
[2022-12-18] MEDS: INSULIN LISPRO (NovoLOG) PER UNIT SC SCH ×4 (08:13→20:49)
[2022-12-18] MEDS: SILVER SULFADIAZINE 1% CR 50 GM JAR TOP SCH ×2 (08:13→20:51)
[2022-12-18] MEDS: PILOCARPINE 4% XX SCH ×3 (08:13→18:35)
[2022-12-18 14:11] VITALS: BP 128/62; TEMP 98.6; O2SAT 95
[2022-12-18] MEDS: ENOXAPARIN 40MG/0.4ML SYRINGE (J1650 PER 10MG) SC SCH (17:07)
[2022-12-18] MEDS: ONDANSETRON 4MG 2ML VIAL IV PRN (18:56)
[2022-12-18 20:00] VITALS: BP 152/67; TEMP 98; O2SAT 96
[2022-12-19] MEDS: MORPHINE 2 MG/ML 1ML VIAL IV PRN ×2 (02:56→05:32)
[2022-12-19] MEDS: ONDANSETRON 4MG 2ML VIAL IV PRN ×3 (03:03→16:35)
[2022-12-19] MEDS: NS 1,000 ML IV SCH (03:45)
[2022-12-19] MEDS: metroNIDAZOLE 500 MG in IV 1 EA IV SCH ×2 (03:47→12:39)
[2022-12-19] MEDS ORDERED: PROMETHAZINE 25MG/ML 1ML VIAL IV ONE (04:05)
[2022-12-19] MEDS ORDERED: MORPHINE 2 MG/ML 1ML VIAL IV ONE (04:05)
[2022-12-19 05:22] VITALS: BP 125/58; TEMP 99; O2SAT 94
[2022-12-19] MEDS: CEFEPIME HCL 2 GM in D5W MINI-BAG PLUS 50 ML IV SCH ×2 (06:03→20:53)
[2022-12-19 06:50] VITALS: BP 129/60; O2SAT 95
[2022-12-19 07:15] LABS: HEMOGLOBIN 9.3 g/dl (13.5-17.5); MEAN CORPUSCULAR HEMOGLOBIN 30.1 pg (27.0-33.0); MEAN CORPUSCULAR HGB CONC 32.1 g/dl (32.0-36.5); MEAN CORPUSCULAR VOLUME 93.9 fl (80.0-96.0); PLATELET COUNT, AUTOMATED 345 10^3/uL (150-450); RED BLOOD COUNT 3.09 10^6/uL (4.30-6.10); WHITE BLOOD COUNT 9.6 10^3/uL (4.0-10.0)
[2022-12-19] MEDS: DOXYCYCLINE HYCLATE 100 MG in D5W MINI-BAG PLUS 100 ML IV SCH (07:22)
[2022-12-19 07:49] LABS: BLOOD UREA NITROGEN 14 MG/DL (9-23); CALCIUM LEVEL 8.7 MG/DL (8.3-10.6); CARBON DIOXIDE LEVEL 17 MMOL/L (20-31); CHLORIDE LEVEL 100 MMOL/L (98-107); CREATININE FOR GFR 0.58 MG/DL (0.70-1.30); GLOMERULAR FILTRATION RATE > 60.0 (>35); GLUCOSE, FASTING 350 MG/DL (74-106); MAGNESIUM LEVEL 1.8 MG/DL (1.8-2.4); PHOSPHORUS LEVEL 3.6 MG/DL (2.4-5.1); POTASSIUM SERUM 4.7 MMOL/L (3.5-5.1); SODIUM LEVEL 133 MMOL/L (136-145)
[2022-12-19] MEDS: NYSTATIN 500,000U/5ML SUSP UDC SSP SCH ×4 (08:28→20:53)
[2022-12-19] MEDS: PILOCARPINE 4% XX SCH ×3 (08:28→20:56)
[2022-12-19] MEDS: ENOXAPARIN 40MG/0.4ML SYRINGE (J1650 PER 10MG) SC SCH (08:28)
[2022-12-19] MEDS: INSULIN LISPRO (NovoLOG) PER UNIT SC SCH ×4 (08:28→20:36)
[2022-12-19] MEDS: POLYVINYL ALCOHOL OPHTH SOLN 15ML (LIQUITEARS) OU SCH ×3 (08:29→20:55)
[2022-12-19] MEDS: SILVER SULFADIAZINE 1% CR 50 GM JAR TOP SCH ×2 (08:29→20:57)
[2022-12-19] MEDS: PANTOPRAZOLE 40MG VIAL IV SCH ×2 (08:29→20:53)
[2022-12-19] MEDS: LEVEMIR (INSULIN DETEMIR) 1 UNITS/0.01ML SC SCH ×2 (10:57→20:41)
[2022-12-19] MEDS ORDERED: KETOROLAC 30 MG/ML 1ML VIAL IV ONE (14:00)
[2022-12-19] MEDS ORDERED: METOCLOPRAMIDE 5 MG TAB PO ONE (14:00)
[2022-12-19 14:06] VITALS: BP 138/63; TEMP 97.2; O2SAT 97
[2022-12-19 15:08] LABS: PROCALCITONIN 0.88 ng/ml
[2022-12-19 15:57] LABS: LIPASE 14 U/L (12-53)
[2022-12-19] MEDS: SIMETHICONE 80MG CHEW TAB PO SCH ×2 (16:00→20:55)
[2022-12-19] MEDS: MIRALAX *UNIT DOSE* 17GM PACKET PO SCH (16:28)
[2022-12-19 16:57] VITALS: BP 156/71; TEMP 97.8; O2SAT 99
[2022-12-19] MEDS: SUCRALFATE 1 GM TAB PO SCH (17:30)
[2022-12-19] MEDS ORDERED: fentaNYL 100 MCG/2 ML INJECTION As Ordered ONE (18:00)
[2022-12-19] MEDS ORDERED: propofoL 200 MG/20 ML VIAL As Ordered ONE (18:00)
[2022-12-19] MEDS ORDERED: LIDOCAINE 2% 100MG/5ML SDV (FOR ANES.) As Ordered ONE (18:00)
[2022-12-19 19:35] VITALS: BP 135/64; TEMP 97.7; O2SAT 97
[2022-12-19] MEDS: KETOROLAC 30 MG/ML 1ML VIAL IV PRN (20:52)
[2022-12-19] MEDS: ATORVASTATIN 20 MG TAB PO SCH (20:54)
[2022-12-19] MEDS: DOXYCYCLINE HYCLATE 100MG TABLET PO SCH (20:54)
[2022-12-19] MEDS: FAMOTIDINE 20 MG TAB PO SCH (20:54)
[2022-12-19] MEDS: DULoxetine 20MG CAP (CYMBALTA) PO SCH (20:55)
[2022-12-19] MEDS: DOCUSATE SODIUM 100MG CAPSULE PO SCH (20:56)
[2022-12-19] MEDS: RAMELTEON 8 MG TAB (ROZEREM) PO PRN (22:25)
[2022-12-20] MEDS ORDERED: HYDROMORPHONE HCL 0.5 MG/ 0.5 ML SYRINGE IV ONE (00:15)
[2022-12-20] MEDS: CEFEPIME HCL 2 GM in D5W MINI-BAG PLUS 50 ML IV SCH ×2 (05:32→18:42)
[2022-12-20 05:38] VITALS: BP 118/56; TEMP 97.6; O2SAT 96
[2022-12-20 05:59] LABS: BASO # 0.1 10^3/uL (0.0-0.2); BASO % 1.2 % (0.0-1.0); EOS # 0.5 10^3/uL (0.0-0.5); HEMATOCRIT 25.7 % (42.0-52.0); HEMOGLOBIN 8.4 g/dl (13.5-17.5); LYMPH # 0.8 10^3/uL (1.5-5.0); LYMPH % 14.7 % (24.0-44.0); MEAN CORPUSCULAR HGB CONC 32.7 g/dl (32.0-36.5); MEAN CORPUSCULAR VOLUME 91.8 fl (80.0-96.0); MONO # 0.5 10^3/uL (0.0-0.8); MONO % 9.2 % (2.0-8.0); NEUTROPHILS # 3.8 10^3/uL (1.5-8.5); NEUTROPHILS % 66.5 % (36.0-66.0); PLATELET COUNT, AUTOMATED 337 10^3/uL (150-450); WHITE BLOOD COUNT 5.7 10^3/uL (4.0-10.0)
[2022-12-20 06:24] LABS: ERYTHROCYTE SEDIMENTATION RATE 53 mm/hr (0-20)
[2022-12-20 06:34] LABS: ALBUMIN 2.4 G/DL (3.2-5.2); ALKALINE PHOSPHATASE 68 U/L (46-116); ALT/SGPT < 9 U/L (7.0-40); AST/SGOT 9 U/L (<34); BILIRUBIN,TOTAL 0.3 MG/DL (0.3-1.2); BLOOD UREA NITROGEN 17 MG/DL (9-23); CALCIUM LEVEL 8.8 MG/DL (8.3-10.6); CARBON DIOXIDE LEVEL 23 MMOL/L (20-31); CHLORIDE LEVEL 107 MMOL/L (98-107); CREATININE FOR GFR 0.55 MG/DL (0.70-1.30); GLOMERULAR FILTRATION RATE > 60.0 (>35); GLUCOSE, FASTING 74 MG/DL (74-106); MAGNESIUM LEVEL 1.8 MG/DL (1.8-2.4); POTASSIUM SERUM 3.5 MMOL/L (3.5-5.1); SODIUM LEVEL 142 MMOL/L (136-145); TOTAL PROTEIN 4.8 G/DL (5.7-8.2)
[2022-12-20 07:03] LABS: HEMOGLOBIN A1c 7.8 % (4.0-6.0)
[2022-12-20] MEDS: INSULIN LISPRO (NovoLOG) PER UNIT SC SCH ×4 (08:16→20:10)
[2022-12-20] MEDS: LEVEMIR (INSULIN DETEMIR) 1 UNITS/0.01ML SC SCH ×2 (08:33→20:31)
[2022-12-20] MEDS: MIRALAX *UNIT DOSE* 17GM PACKET PO SCH (08:33)
[2022-12-20] MEDS: PANTOPRAZOLE 40MG VIAL IV SCH (09:26)
[2022-12-20] MEDS: ENOXAPARIN 40MG/0.4ML SYRINGE (J1650 PER 10MG) SC SCH (09:26)
[2022-12-20] MEDS: ATORVASTATIN 20 MG TAB PO SCH (09:27)
[2022-12-20] MEDS: SIMETHICONE 80MG CHEW TAB PO SCH ×3 (09:27→20:29)
[2022-12-20] MEDS: FAMOTIDINE 20 MG TAB PO SCH (09:27)
[2022-12-20] MEDS: NYSTATIN 500,000U/5ML SUSP UDC SSP SCH ×4 (09:27→20:31)
[2022-12-20] MEDS: SUCRALFATE 1 GM TAB PO SCH ×3 (09:27→18:00)
[2022-12-20] MEDS: DOCUSATE SODIUM 100MG CAPSULE PO SCH ×2 (09:27→20:29)
[2022-12-20] MEDS: DOXYCYCLINE HYCLATE 100MG TABLET PO SCH ×2 (09:27→20:29)
[2022-12-20] MEDS: DULoxetine 20MG CAP (CYMBALTA) PO SCH ×2 (09:28→20:29)
[2022-12-20] MEDS: PILOCARPINE 4% XX SCH ×3 (09:28→18:01)
[2022-12-20] MEDS: ASPIRIN 81MG ENTERIC TABLET PO SCH (09:28)
[2022-12-20] MEDS: POLYVINYL ALCOHOL OPHTH SOLN 15ML (LIQUITEARS) OU SCH ×3 (09:29→20:31)
[2022-12-20] MEDS: SILVER SULFADIAZINE 1% CR 50 GM JAR TOP SCH ×2 (09:29→20:32)
[2022-12-20] MEDS: metroNIDAZOLE (FLAGYL) 500MG TABLET PO SCH ×3 (10:45→20:29)
[2022-12-20 14:00] VITALS: BP 129/59; TEMP 97.6; O2SAT 97
[2022-12-20] MEDS: KETOROLAC 30 MG/ML 1ML VIAL IV PRN (16:02)
[2022-12-20 19:44] VITALS: BP 113/56; TEMP 97.5; O2SAT 98
[2022-12-20] MEDS ORDERED: traMADol 50 MG TAB PO ONE (23:10)
[2022-12-20] MEDS: RAMELTEON 8 MG TAB (ROZEREM) PO PRN (23:15)
[2022-12-21 04:25] VITALS: BP 140/64; TEMP 98; O2SAT 96
[2022-12-21 05:37] LABS: BASO # 0.1 10^3/uL (0.0-0.2); BASO % 1.8 % (0.0-1.0); EOS # 0.5 10^3/uL (0.0-0.5); EOS % 10.4 % (0.0-3.0); HEMATOCRIT 26.7 % (42.0-52.0); HEMOGLOBIN 8.8 g/dl (13.5-17.5); LYMPH # 0.9 10^3/uL (1.5-5.0); LYMPH % 19.8 % (24.0-44.0); MEAN CORPUSCULAR HEMOGLOBIN 30.1 pg (27.0-33.0); MEAN CORPUSCULAR VOLUME 91.4 fl (80.0-96.0); MONO # 0.6 10^3/uL (0.0-0.8); MONO % 12.9 % (2.0-8.0); NEUTROPHILS # 2.4 10^3/uL (1.5-8.5); NEUTROPHILS % 54.6 % (36.0-66.0); PLATELET COUNT, AUTOMATED 331 10^3/uL (150-450); RED BLOOD COUNT 2.92 10^6/uL (4.30-6.10); WHITE BLOOD COUNT 4.3 10^3/uL (4.0-10.0)
[2022-12-21] MEDS: CEFEPIME HCL 2 GM in D5W MINI-BAG PLUS 50 ML IV SCH ×2 (06:08→17:18)
[2022-12-21] MEDS: INSULIN LISPRO (NovoLOG) PER UNIT SC SCH ×4 (07:30→20:58)
[2022-12-21] MEDS: LEVEMIR (INSULIN DETEMIR) 1 UNITS/0.01ML SC SCH ×2 (07:30→21:54)
[2022-12-21] MEDS: SUCRALFATE 1 GM TAB PO SCH ×3 (07:30→17:08)
[2022-12-21 08:00] VITALS: BP 142/61; TEMP 97.4; O2SAT 96
[2022-12-21] MEDS: DOCUSATE SODIUM 100MG CAPSULE PO SCH ×2 (08:03→10:53)
[2022-12-21] MEDS ORDERED: VARIBAR NECTAR 40% w/v 240ML SUSP BTL As Ordered ONE (10:25)
[2022-12-21] MEDS ORDERED: VARIBAR PUDDING 40% w/v 230ML TUBE As Ordered ONE (10:25)
[2022-12-21] MEDS ORDERED: BARIUM SULFATE 700 MG TABLET (E-Z-DISK) As Ordered ONE (10:25)
[2022-12-21] MEDS ORDERED: E-Z-PAQUE 96% w/w SUSP 176GM BTL As Ordered ONE (10:25)
[2022-12-21] MEDS: SIMETHICONE 80MG CHEW TAB PO SCH ×3 (10:50→21:53)
[2022-12-21] MEDS: DULoxetine 20MG CAP (CYMBALTA) PO SCH ×2 (10:50→21:54)
[2022-12-21] MEDS: PANTOPRAZOLE 40MG TAB (PROTONIX) PO SCH (10:51)
[2022-12-21] MEDS: FAMOTIDINE 20 MG TAB PO SCH (10:51)
[2022-12-21] MEDS: ATORVASTATIN 20 MG TAB PO SCH (10:51)
[2022-12-21] MEDS: DOXYCYCLINE HYCLATE 100MG TABLET PO SCH ×2 (10:51→21:53)
[2022-12-21] MEDS: ASPIRIN 81MG ENTERIC TABLET PO SCH (10:51)
[2022-12-21] MEDS: metroNIDAZOLE (FLAGYL) 500MG TABLET PO SCH ×3 (10:51→21:54)
[2022-12-21] MEDS: NYSTATIN 500,000U/5ML SUSP UDC SSP SCH ×4 (10:52→21:54)
[2022-12-21] MEDS: ENOXAPARIN 40MG/0.4ML SYRINGE (J1650 PER 10MG) SC SCH (10:53)
[2022-12-21] MEDS: MIRALAX *UNIT DOSE* 17GM PACKET PO SCH (10:53)
[2022-12-21] MEDS: PILOCARPINE 4% XX SCH ×3 (10:55→17:12)
[2022-12-21] MEDS: POLYVINYL ALCOHOL OPHTH SOLN 15ML (LIQUITEARS) OU SCH ×3 (10:55→21:55)
[2022-12-21] MEDS: SILVER SULFADIAZINE 1% CR 50 GM JAR TOP SCH ×2 (10:56→21:55)
[2022-12-21 12:00] VITALS: BP 149/67; TEMP 97.5; O2SAT 96
[2022-12-21] MEDS: ONDANSETRON 4MG 2ML VIAL IV PRN (17:18)
[2022-12-21 20:00] VITALS: BP 126/59; TEMP 97.6; O2SAT 98
[2022-12-22 05:00] VITALS: BP 126/58; TEMP 98; O2SAT 97
[2022-12-22 05:33] LABS: HEMATOCRIT 27.3 % (42.0-52.0); HEMOGLOBIN 9.1 g/dl (13.5-17.5); MEAN CORPUSCULAR HEMOGLOBIN 30.2 pg (27.0-33.0); MEAN CORPUSCULAR HGB CONC 33.3 g/dl (32.0-36.5); MEAN CORPUSCULAR VOLUME 90.7 fl (80.0-96.0); PLATELET COUNT, AUTOMATED 368 10^3/uL (150-450); RED BLOOD COUNT 3.01 10^6/uL (4.30-6.10); WHITE BLOOD COUNT 4.6 10^3/uL (4.0-10.0)
[2022-12-22 05:57] LABS: BLOOD UREA NITROGEN 22 MG/DL (9-23); CALCIUM LEVEL 8.6 MG/DL (8.3-10.6); CARBON DIOXIDE LEVEL 28 MMOL/L (20-31); CHLORIDE LEVEL 104 MMOL/L (98-107); CREATININE FOR GFR 0.55 MG/DL (0.70-1.30); GLOMERULAR FILTRATION RATE > 60.0 (>35); GLUCOSE, FASTING 154 MG/DL (74-106); MAGNESIUM LEVEL 1.7 MG/DL (1.8-2.4); PHOSPHORUS LEVEL 2.6 MG/DL (2.4-5.1); POTASSIUM SERUM 3.2 MMOL/L (3.5-5.1); SODIUM LEVEL 140 MMOL/L (136-145)
[2022-12-22] MEDS: CEFEPIME HCL 2 GM in D5W MINI-BAG PLUS 50 ML IV SCH ×2 (06:02→18:02)
[2022-12-22] MEDS: INSULIN LISPRO (NovoLOG) PER UNIT SC SCH ×4 (07:30→20:40)
[2022-12-22] MEDS: LEVEMIR (INSULIN DETEMIR) 1 UNITS/0.01ML SC SCH ×2 (08:19→21:00)
[2022-12-22] MEDS: MIRALAX *UNIT DOSE* 17GM PACKET PO SCH (08:20)
[2022-12-22] MEDS: ENOXAPARIN 40MG/0.4ML SYRINGE (J1650 PER 10MG) SC SCH (08:20)
[2022-12-22] MEDS: NYSTATIN 500,000U/5ML SUSP UDC SSP SCH ×4 (08:20→21:06)
[2022-12-22] MEDS: SIMETHICONE 80MG CHEW TAB PO SCH ×3 (08:21→21:05)
[2022-12-22] MEDS: DULoxetine 20MG CAP (CYMBALTA) PO SCH ×2 (08:21→21:06)
[2022-12-22] MEDS: ATORVASTATIN 20 MG TAB PO SCH (08:21)
[2022-12-22] MEDS: ASPIRIN 81MG ENTERIC TABLET PO SCH (08:21)
[2022-12-22] MEDS: PANTOPRAZOLE 40MG TAB (PROTONIX) PO SCH (08:21)
[2022-12-22] MEDS: SUCRALFATE 1 GM TAB PO SCH ×3 (08:22→16:39)
[2022-12-22] MEDS: DOCUSATE SODIUM 100MG CAPSULE PO SCH ×2 (08:22→21:06)
[2022-12-22] MEDS: DOXYCYCLINE HYCLATE 100MG TABLET PO SCH ×2 (08:22→21:06)
[2022-12-22] MEDS: FAMOTIDINE 20 MG TAB PO SCH (08:22)
[2022-12-22] MEDS: metroNIDAZOLE (FLAGYL) 500MG TABLET PO SCH ×3 (08:22→21:06)
[2022-12-22] MEDS: PILOCARPINE 4% XX SCH ×3 (08:23→18:03)
[2022-12-22] MEDS: SILVER SULFADIAZINE 1% CR 50 GM JAR TOP SCH ×2 (08:24→21:07)
[2022-12-22] MEDS: POLYVINYL ALCOHOL OPHTH SOLN 15ML (LIQUITEARS) OU SCH ×3 (08:24→21:07)
[2022-12-22 13:57] VITALS: BP 143/64; TEMP 97.5; O2SAT 98
[2022-12-22 19:56] VITALS: BP 128/62; TEMP 97.3; O2SAT 97
[2022-12-23 06:25] VITALS: BP 158/72; TEMP 98; O2SAT 96
[2022-12-23] MEDS: SUCRALFATE 1 GM TAB PO SCH ×3 (08:46→17:15)
[2022-12-23] MEDS: ENOXAPARIN 40MG/0.4ML SYRINGE (J1650 PER 10MG) SC SCH (10:17)
[2022-12-23] MEDS: INSULIN LISPRO (NovoLOG) PER UNIT SC SCH ×4 (10:17→21:00)
[2022-12-23] MEDS: LEVEMIR (INSULIN DETEMIR) 1 UNITS/0.01ML SC SCH ×2 (10:17→20:51)
[2022-12-23] MEDS: MIRALAX *UNIT DOSE* 17GM PACKET PO SCH (10:21)
[2022-12-23] MEDS: PANTOPRAZOLE 40MG TAB (PROTONIX) PO SCH (10:22)
[2022-12-23] MEDS: METOCLOPRAMIDE 5 MG TAB PO PRN (10:22)
[2022-12-23] MEDS: DOCUSATE SODIUM 100MG CAPSULE PO SCH ×2 (10:22→20:50)
[2022-12-23] MEDS: FAMOTIDINE 20 MG TAB PO SCH (10:22)
[2022-12-23] MEDS: ATORVASTATIN 20 MG TAB PO SCH (10:22)
[2022-12-23] MEDS: ASPIRIN 81MG ENTERIC TABLET PO SCH (10:23)
[2022-12-23] MEDS: SIMETHICONE 80MG CHEW TAB PO SCH ×3 (10:23→20:50)
[2022-12-23] MEDS: lisinopriL 5 MG TAB PO SCH (10:23)
[2022-12-23] MEDS: POLYVINYL ALCOHOL OPHTH SOLN 15ML (LIQUITEARS) OU SCH ×3 (10:23→20:51)
[2022-12-23] MEDS: DULoxetine 20MG CAP (CYMBALTA) PO SCH ×2 (10:23→20:50)
[2022-12-23] MEDS: SILVER SULFADIAZINE 1% CR 50 GM JAR TOP SCH ×2 (10:24→20:51)
[2022-12-23] MEDS: PILOCARPINE 4% XX SCH ×3 (10:24→18:00)
[2022-12-23] MEDS: NYSTATIN 500,000U/5ML SUSP UDC SSP SCH ×4 (10:24→20:50)
[2022-12-23] MEDS: ONDANSETRON 4MG 2ML VIAL IV PRN (14:36)
[2022-12-23 14:43] VITALS: BP 119/56; TEMP 97.9; O2SAT 97
[2022-12-23 22:00] VITALS: BP 122/59; TEMP 98.6; O2SAT 96
[2022-12-24 05:31] LABS: HEMATOCRIT 29.5 % (42.0-52.0); HEMOGLOBIN 9.7 g/dl (13.5-17.5); MEAN CORPUSCULAR HEMOGLOBIN 30.2 pg (27.0-33.0); MEAN CORPUSCULAR HGB CONC 32.9 g/dl (32.0-36.5); MEAN CORPUSCULAR VOLUME 91.9 fl (80.0-96.0); PLATELET COUNT, AUTOMATED 342 10^3/uL (150-450); RED BLOOD COUNT 3.21 10^6/uL (4.30-6.10); WHITE BLOOD COUNT 5.4 10^3/uL (4.0-10.0)
[2022-12-24 05:55] LABS: BLOOD UREA NITROGEN 26 MG/DL (9-23); CALCIUM LEVEL 8.6 MG/DL (8.3-10.6); CARBON DIOXIDE LEVEL 32 MMOL/L (20-31); CHLORIDE LEVEL 103 MMOL/L (98-107); CREATININE FOR GFR 0.55 MG/DL (0.70-1.30); GLOMERULAR FILTRATION RATE > 60.0 (>35); GLUCOSE, FASTING 112 MG/DL (74-106); MAGNESIUM LEVEL 1.8 MG/DL (1.8-2.4); POTASSIUM SERUM 3.3 MMOL/L (3.5-5.1); SODIUM LEVEL 141 MMOL/L (136-145)
[2022-12-24 06:00] VITALS: BP 135/63; TEMP 97.5; O2SAT 95
[2022-12-24] MEDS: INSULIN LISPRO (NovoLOG) PER UNIT SC SCH ×4 (07:30→20:11)
[2022-12-24] MEDS: SUCRALFATE 1 GM TAB PO SCH ×3 (08:13→17:09)
[2022-12-24] MEDS: POTASSIUM CHLORIDE 10MEQ SR TABLET PO SCH ×2 (08:13→20:11)
[2022-12-24] MEDS: ATORVASTATIN 20 MG TAB PO SCH (08:15)
[2022-12-24] MEDS: FAMOTIDINE 20 MG TAB PO SCH (08:15)
[2022-12-24] MEDS: SIMETHICONE 80MG CHEW TAB PO SCH ×3 (08:15→20:11)
[2022-12-24] MEDS: ASPIRIN 81MG ENTERIC TABLET PO SCH (08:15)
[2022-12-24] MEDS: PANTOPRAZOLE 40MG TAB (PROTONIX) PO SCH (08:15)
[2022-12-24] MEDS: lisinopriL 5 MG TAB PO SCH (08:15)
[2022-12-24] MEDS: MIRALAX *UNIT DOSE* 17GM PACKET PO SCH (08:16)
[2022-12-24] MEDS: NYSTATIN 500,000U/5ML SUSP UDC SSP SCH ×4 (08:16→20:11)
[2022-12-24] MEDS: LEVEMIR (INSULIN DETEMIR) 1 UNITS/0.01ML SC SCH ×2 (08:16→20:10)
[2022-12-24] MEDS: DULoxetine 20MG CAP (CYMBALTA) PO SCH ×2 (08:16→20:11)
[2022-12-24] MEDS: POLYVINYL ALCOHOL OPHTH SOLN 15ML (LIQUITEARS) OU SCH ×3 (08:17→20:12)
[2022-12-24] MEDS: ENOXAPARIN 40MG/0.4ML SYRINGE (J1650 PER 10MG) SC SCH (08:17)
[2022-12-24] MEDS: PILOCARPINE 4% XX SCH ×3 (08:17→17:09)
[2022-12-24] MEDS: SILVER SULFADIAZINE 1% CR 50 GM JAR TOP SCH ×2 (08:18→20:13)
[2022-12-24] MEDS: DOCUSATE SODIUM 100MG CAPSULE PO SCH ×2 (08:24→20:11)
[2022-12-24 14:00] VITALS: BP 131/60; TEMP 97.5; O2SAT 98
[2022-12-24 20:00] VITALS: BP 110/55; TEMP 97.8; O2SAT 96
[2022-12-24] MEDS: METOCLOPRAMIDE 5 MG TAB PO PRN (20:11)
[2022-12-24] MEDS: RAMELTEON 8 MG TAB (ROZEREM) PO PRN (20:11)
[2022-12-25 05:58] LABS: HEMATOCRIT 30.3 % (42.0-52.0); HEMOGLOBIN 9.7 g/dl (13.5-17.5); MEAN CORPUSCULAR HEMOGLOBIN 30.1 pg (27.0-33.0); MEAN CORPUSCULAR VOLUME 94.1 fl (80.0-96.0); PLATELET COUNT, AUTOMATED 344 10^3/uL (150-450); RED BLOOD COUNT 3.22 10^6/uL (4.30-6.10); WHITE BLOOD COUNT 5.6 10^3/uL (4.0-10.0)
[2022-12-25 06:26] LABS: BLOOD UREA NITROGEN 31 MG/DL (9-23); CALCIUM LEVEL 8.7 MG/DL (8.3-10.6); CARBON DIOXIDE LEVEL 31 MMOL/L (20-31); CHLORIDE LEVEL 104 MMOL/L (98-107); CREATININE FOR GFR 0.51 MG/DL (0.70-1.30); GLOMERULAR FILTRATION RATE > 60.0 (>35); GLUCOSE, FASTING 102 MG/DL (74-106); MAGNESIUM LEVEL 1.8 MG/DL (1.8-2.4); POTASSIUM SERUM 4.1 MMOL/L (3.5-5.1); SODIUM LEVEL 143 MMOL/L (136-145)
[2022-12-25 06:43] VITALS: BP 149/72; TEMP 97.3; O2SAT 95
[2022-12-25] MEDS: LEVEMIR (INSULIN DETEMIR) 1 UNITS/0.01ML SC SCH ×2 (09:00→21:07)
[2022-12-25] MEDS: POTASSIUM CHLORIDE 10MEQ SR TABLET PO SCH ×2 (09:11→21:07)
[2022-12-25] MEDS: NYSTATIN 500,000U/5ML SUSP UDC SSP SCH ×4 (09:11→21:07)
[2022-12-25] MEDS: SUCRALFATE 1 GM TAB PO SCH ×3 (09:11→18:22)
[2022-12-25] MEDS: DOCUSATE SODIUM 100MG CAPSULE PO SCH ×2 (09:11→21:06)
[2022-12-25] MEDS: ATORVASTATIN 20 MG TAB PO SCH (09:11)
[2022-12-25] MEDS: PANTOPRAZOLE 40MG TAB (PROTONIX) PO SCH (09:11)
[2022-12-25] MEDS: SIMETHICONE 80MG CHEW TAB PO SCH ×3 (09:11→21:07)
[2022-12-25] MEDS: ASPIRIN 81MG ENTERIC TABLET PO SCH (09:11)
[2022-12-25] MEDS: MIRALAX *UNIT DOSE* 17GM PACKET PO SCH (09:11)
[2022-12-25] MEDS: lisinopriL 5 MG TAB PO SCH (09:12)
[2022-12-25] MEDS: FAMOTIDINE 20 MG TAB PO SCH (09:12)
[2022-12-25] MEDS: DULoxetine 20MG CAP (CYMBALTA) PO SCH ×2 (09:12→21:06)
[2022-12-25] MEDS: ENOXAPARIN 40MG/0.4ML SYRINGE (J1650 PER 10MG) SC SCH (09:14)
[2022-12-25] MEDS: INSULIN LISPRO (NovoLOG) PER UNIT SC SCH ×4 (09:15→21:00)
[2022-12-25] MEDS: SILVER SULFADIAZINE 1% CR 50 GM JAR TOP SCH ×2 (09:27→21:00)
[2022-12-25] MEDS: POLYVINYL ALCOHOL OPHTH SOLN 15ML (LIQUITEARS) OU SCH ×3 (09:27→21:08)
[2022-12-25] MEDS: PILOCARPINE 4% XX SCH ×3 (09:27→18:24)
[2022-12-25 15:01] VITALS: BP 111/57; TEMP 97.8; O2SAT 96
[2022-12-25] MEDS ORDERED: MIRA1POW3 PO (20:38)
[2022-12-25] MEDS ORDERED: RAME8TAB2 PO (20:38)
[2022-12-25] MEDS ORDERED: POTA-136 PO (20:38)
[2022-12-25] MEDS ORDERED: COLA100C5 PO (20:38)
[2022-12-25 20:49] VITALS: BP 117/57; TEMP 98.2; O2SAT 95
[2022-12-26 05:52] VITALS: BP 123/58; TEMP 97.9; O2SAT 96
[2022-12-26 06:20] LABS: HEMATOCRIT 31.9 % (42.0-52.0); MEAN CORPUSCULAR HEMOGLOBIN 29.9 pg (27.0-33.0); MEAN CORPUSCULAR HGB CONC 31.3 g/dl (32.0-36.5); MEAN CORPUSCULAR VOLUME 95.2 fl (80.0-96.0); PLATELET COUNT, AUTOMATED 361 10^3/uL (150-450); RED BLOOD COUNT 3.35 10^6/uL (4.30-6.10); WHITE BLOOD COUNT 6.2 10^3/uL (4.0-10.0)
[2022-12-26 06:42] LABS: BLOOD UREA NITROGEN 34 MG/DL (9-23); CALCIUM LEVEL 8.9 MG/DL (8.3-10.6); CARBON DIOXIDE LEVEL 33 MMOL/L (20-31); CHLORIDE LEVEL 104 MMOL/L (98-107); CREATININE FOR GFR 0.57 MG/DL (0.70-1.30); GLOMERULAR FILTRATION RATE > 60.0 (>35); GLUCOSE, FASTING 49 MG/DL (74-106); MAGNESIUM LEVEL 1.8 MG/DL (1.8-2.4); POTASSIUM SERUM 4.6 MMOL/L (3.5-5.1); SODIUM LEVEL 142 MMOL/L (136-145)
[2022-12-26] MEDS ORDERED: INSUDET SC (07:11)
[2022-12-26] MEDS: INSULIN LISPRO (NovoLOG) PER UNIT SC SCH (07:29)
[2022-12-26] MEDS ORDERED: MOUKOT60 MT (07:50)
[2022-12-26] MEDS: LEVEMIR (INSULIN DETEMIR) 1 UNITS/0.01ML SC SCH (09:00)
[2022-12-26] MEDS: SILVER SULFADIAZINE 1% CR 50 GM JAR TOP SCH (09:00)
[2022-12-26] MEDS: SIMETHICONE 80MG CHEW TAB PO SCH (09:21)
[2022-12-26] MEDS: ENOXAPARIN 40MG/0.4ML SYRINGE (J1650 PER 10MG) SC SCH (09:23)
[2022-12-26] MEDS: NYSTATIN 500,000U/5ML SUSP UDC SSP SCH (09:23)
[2022-12-26] MEDS: MIRALAX *UNIT DOSE* 17GM PACKET PO SCH (09:23)
[2022-12-26] MEDS: DOCUSATE SODIUM 100MG CAPSULE PO SCH (09:25)
[2022-12-26] MEDS: DULoxetine 20MG CAP (CYMBALTA) PO SCH (09:25)
[2022-12-26] MEDS: ASPIRIN 81MG ENTERIC TABLET PO SCH (09:26)
[2022-12-26] MEDS: PANTOPRAZOLE 40MG TAB (PROTONIX) PO SCH (09:26)
[2022-12-26] MEDS: ATORVASTATIN 20 MG TAB PO SCH (09:26)
[2022-12-26] MEDS: POTASSIUM CHLORIDE 10MEQ SR TABLET PO SCH (09:26)
[2022-12-26] MEDS: SUCRALFATE 1 GM TAB PO SCH (09:26)
[2022-12-26] MEDS: FAMOTIDINE 20 MG TAB PO SCH (09:26)
[2022-12-26 09:27] VITALS: BP 123/58
[2022-12-26] MEDS: PILOCARPINE 4% XX SCH (09:27)
[2022-12-26] MEDS: POLYVINYL ALCOHOL OPHTH SOLN 15ML (LIQUITEARS) OU SCH (09:27)
[2022-12-26] MEDS: lisinopriL 5 MG TAB PO SCH (09:27)
== END 2022-12-26 11:06 | DRG 871 ==
LOC: EDBD 10:46 → M ED 10:46 → M ED INP 16:47 → M MS4PR 19:00
PROVIDERS: ADMIT Internal Medicine; ATTEND Internal Medicine
PROC: 0W3P8ZZ Control Bleeding in Gastrointestinal Tract, Via Natural or Artificial Opening Endoscopic (ICD-10-PCS; 2022-12-19)
PROC: BW40ZZZ Ultrasonography of Abdomen (ICD-10-PCS; 2022-12-19)
PROC: 0DB78ZX Excision of Stomach, Pylorus, Via Natural or Artificial Opening Endoscopic, Diagnostic (ICD-10-PCS; principal; 2022-12-19 16:30)
DX: A41.9 Sepsis, unspecified organism (principal); J15.6 Pneumonia due to other Gram-negative bacteria; J96.01 Acute respiratory failure with hypoxia; E87.1 Hypo-osmolality and hyponatremia; B37.0 Candidal stomatitis; L03.116 Cellulitis of left lower limb; E11.319 Type 2 diabetes mellitus with unspecified diabetic retinopathy without macular edema; F41.9 Anxiety disorder, unspecified; G14 Postpolio syndrome; J44.9 Chronic obstructive pulmonary disease, unspecified; I12.9 Hypertensive chronic kidney disease with stage 1 through stage 4 chronic kidney disease, or unspecified chronic kidney disease; N18.30 Chronic kidney disease, stage 3 unspecified; Z66 Do not resuscitate; E87.5 Hyperkalemia; Z53.09 Procedure and treatment not carried out because of other contraindication; E11.649 Type 2 diabetes mellitus with hypoglycemia without coma; E86.0 Dehydration; R63.4 Abnormal weight loss; R93.3 Abnormal findings on diagnostic imaging of other parts of digestive tract; E87.8 Other disorders of electrolyte and fluid balance, not elsewhere classified; K29.70 Gastritis, unspecified, without bleeding; E11.22 Type 2 diabetes mellitus with diabetic chronic kidney disease; R13.10 Dysphagia, unspecified; I27.20 Pulmonary hypertension, unspecified; K31.84 Gastroparesis; H04.123 Dry eye syndrome of bilateral lacrimal glands; I69.391 Dysphagia following cerebral infarction; E11.43 Type 2 diabetes mellitus with diabetic autonomic (poly)neuropathy; L72.0 Epidermal cyst; Z79.82 Long term (current) use of aspirin; Z79.4 Long term (current) use of insulin; Z98.49 Cataract extraction status, unspecified eye; Z88.0 Allergy status to penicillin; Z88.8 Allergy status to other drugs, medicaments and biological substances; Z85.828 Personal history of other malignant neoplasm of skin; Z85.46 Personal history of malignant neoplasm of prostate

== ENCOUNTER → 2022-12-17 | Outpatient (REF) ==
[~2022-12-17] MED LIST changes: +GLUC1LIQ18 PO; +MAG30ORA8 PO; +METO5TAB2 PO; +OMEP1CAP73 PO; +PILO4SOL6 SL; +SUCR1TAB56 PO
== END ==
PROVIDERS: ATTEND Physician Assistant
DX: E11.9 Type 2 diabetes mellitus without complications (principal); Z53.8 Procedure and treatment not carried out for other reasons

== ENCOUNTER → 2022-12-28 | Outpatient (REF) ==
[~2022-12-28] MED LIST changes: +COLA100C5 PO; +MOUKOT60 MT; +POTA-136 PO; +PROT1TAB2 PO; +RAME8TAB2 PO
[2022-12-28 08:23] LABS: HEMATOCRIT 34.3 % (42.0-52.0); MEAN CORPUSCULAR HEMOGLOBIN 30.1 pg (27.0-33.0); MEAN CORPUSCULAR HGB CONC 32.1 g/dl (32.0-36.5); PLATELET COUNT, AUTOMATED 366 10^3/uL (150-450); RED BLOOD COUNT 3.65 10^6/uL (4.30-6.10)
[2022-12-28 08:52] LABS: BLOOD UREA NITROGEN 23 MG/DL (9-23); CALCIUM LEVEL 9.2 MG/DL (8.3-10.6); CARBON DIOXIDE LEVEL 33 MMOL/L (20-31); CHLORIDE LEVEL 101 MMOL/L (98-107); CREATININE FOR GFR 0.59 MG/DL (0.70-1.30); GLOMERULAR FILTRATION RATE > 60.0 (>35); GLUCOSE, FASTING 104 MG/DL (74-106); POTASSIUM SERUM 4.5 MMOL/L (3.5-5.1); SODIUM LEVEL 140 MMOL/L (136-145)
== END ==
PROVIDERS: ATTEND Internal Medicine
DX: E11.9 Type 2 diabetes mellitus without complications (principal)

== ENCOUNTER 2023-01-01 22:41 | Emergency (ER) | payer MEDICARE, BC, OTHER ==
[~2023-01-01] VITALS: Ht 167.6 cm; Wt 58.6 kg
[~2023-01-01 22:41] MED LIST changes: -PROT1TAB2 PO
[2023-01-01 23:33] LABS: BASO # 0.1 10^3/uL (0.0-0.2); BASO % 1.5 % (0.0-1.0); EOS # 0.5 10^3/uL (0.0-0.5); EOS % 7.9 % (0.0-3.0); HEMATOCRIT 32.9 % (42.0-52.0); HEMOGLOBIN 10.7 g/dl (13.5-17.5); LYMPH # 1.1 10^3/uL (1.5-5.0); LYMPH % 18.5 % (24.0-44.0); MEAN CORPUSCULAR HEMOGLOBIN 30.1 pg (27.0-33.0); MEAN CORPUSCULAR HGB CONC 32.5 g/dl (32.0-36.5); MEAN CORPUSCULAR VOLUME 92.7 fl (80.0-96.0); MONO # 0.7 10^3/uL (0.0-0.8); MONO % 12.2 % (2.0-8.0); NEUTROPHILS # 3.5 10^3/uL (1.5-8.5); NEUTROPHILS % 59.6 % (36.0-66.0); PLATELET COUNT, AUTOMATED 369 10^3/uL (150-450); RED BLOOD COUNT 3.55 10^6/uL (4.30-6.10); WHITE BLOOD COUNT 5.8 10^3/uL (4.0-10.0)
[2023-01-01 23:58] LABS: LIPASE 25 U/L (12-53)
[2023-01-02 00:02] LABS: ALBUMIN 3.2 G/DL (3.2-5.2); ALKALINE PHOSPHATASE 71 U/L (46-116); ALT/SGPT 15 U/L (7.0-40); AST/SGOT 26 U/L (<34); BILIRUBIN,DIRECT 0.1 MG/DL (<0.4); BILIRUBIN,TOTAL 0.3 MG/DL (0.3-1.2); BLOOD UREA NITROGEN 29 MG/DL (9-23); CALCIUM LEVEL 9.2 MG/DL (8.3-10.6); CARBON DIOXIDE LEVEL 28 MMOL/L (20-31); CHLORIDE LEVEL 101 MMOL/L (98-107); CREATININE FOR GFR 0.72 MG/DL (0.70-1.30); GLOMERULAR FILTRATION RATE > 60.0 (>35); GLUCOSE, FASTING 105 MG/DL (74-106); POTASSIUM SERUM 4.4 MMOL/L (3.5-5.1); SODIUM LEVEL 135 MMOL/L (136-145)
[2023-01-02] MEDS ORDERED: PANTOPRAZOLE 40MG VIAL IV ONE (00:05)
[2023-01-02] MEDS ORDERED: PROT1TAB2 PO (00:15)
[2023-01-02 01:00] VITALS: BP 137/64
[2023-01-02 01:11] VITALS: TEMP 96.9; O2SAT 96
== END 2023-01-02 01:19 | disposition home or self-care (01) ==
LOC: EDBD 22:41 → M ED 22:41
DX: K29.00 Acute gastritis without bleeding (principal); E11.9 Type 2 diabetes mellitus without complications; I12.9 Hypertensive chronic kidney disease with stage 1 through stage 4 chronic kidney disease, or unspecified chronic kidney disease; J44.9 Chronic obstructive pulmonary disease, unspecified; N18.30 Chronic kidney disease, stage 3 unspecified; Z85.46 Personal history of malignant neoplasm of prostate; R53.1 Weakness; Z86.73 Personal history of transient ischemic attack (TIA), and cerebral infarction without residual deficits
CPT/HCPCS: 80048; 80076; 83605; 83690; 85025; 96374; 99284; C9113

== ENCOUNTER → 2023-01-02 | Outpatient (REF) ==
[~2023-01-02] MED LIST changes: +PROT1TAB2 PO
[2023-01-02 09:22] LABS: HEMATOCRIT 33.5 % (42.0-52.0); HEMOGLOBIN 10.7 g/dl (13.5-17.5); MEAN CORPUSCULAR HEMOGLOBIN 29.8 pg (27.0-33.0); MEAN CORPUSCULAR HGB CONC 31.9 g/dl (32.0-36.5); MEAN CORPUSCULAR VOLUME 93.3 fl (80.0-96.0); PLATELET COUNT, AUTOMATED 364 10^3/uL (150-450); RED BLOOD COUNT 3.59 10^6/uL (4.30-6.10); WHITE BLOOD COUNT 6.6 10^3/uL (4.0-10.0)
[2023-01-02 09:45] LABS: BLOOD UREA NITROGEN 28 MG/DL (9-23); CALCIUM LEVEL 8.9 MG/DL (8.3-10.6); CARBON DIOXIDE LEVEL 27 MMOL/L (20-31); CHLORIDE LEVEL 99 MMOL/L (98-107); CREATININE FOR GFR 0.65 MG/DL (0.70-1.30); GLOMERULAR FILTRATION RATE > 60.0 (>35); GLUCOSE, FASTING 117 MG/DL (74-106); POTASSIUM SERUM 4.8 MMOL/L (3.5-5.1); SODIUM LEVEL 135 MMOL/L (136-145)
== END ==
PROVIDERS: ATTEND Internal Medicine
DX: Z79.899 Other long term (current) drug therapy (principal)